=== PATIENT | female | born 1945 | race Caucasian/White ===

== ENCOUNTER 2018-01-31 01:11 | Outpatient (CLI) | payer OTHER, SELFPAY ==
--- NOTE | 2018-01-31 10:00 | MERGE_ITS ---
*[facility]* *[facility]* [address] [place] [address] Date of study: 01/31/2018 Transthoracic Echocardiography M-mode, complete 2D, complete spectral Doppler, and color Doppler *STUDY CONCLUSIONS* Summary: 1. Left ventricle: The cavity size was normal. Wall thickness was normal. Systolic function was normal. The estimated ejection fraction was 60-65%. Wall motion was normal; there were no regional wall motion abnormalities. Some parameters suggest diastolic dysfunction. 2. Left atrium: The atrium was mildly dilated. 3. Right ventricle: The cavity size was normal. Wall thickness was normal. Systolic function was normal. *PATIENT PRESENTATION* Height: 149.9cm ((59in) ) S/D Pressure: 125 / 71 Weight: 69.9kg ((153.7lb) ) BSA: 1.73m^2 Test start time: 10:18 AM. Test stop time: 11:00 AM. ORDERING Laura Ortiz REFERRING Laura Ortiz PERFORMING Unknown PERFORMING [facility] SIGNAL INTELLIGENCE/ELECTRONIC WARFARE RT Emre (Marisa)(CT), [place] *PROCEDURE DATA* Procedure information: The patient was identified by two identifiers. This study was interpreted by [facility]. Pertinent images and digital data are archived for permanent storage and are available for subsequent review. Comparison was made to the study of 01/19/2016. Study status: Routine. Transthoracic echocardiography. M-mode, complete 2D, complete spectral Doppler, and color Doppler. A Transthoracic Echocardiogram was performed. Scanning was performed from the parasternal, apical, subcostal, and suprasternal notch acoustic windows. Images were obtained using an [id number] cardiac ultrasound machine. Image quality was adequate. Study completion: The patient tolerated the procedure well. There were no complications. History: PMH: Orthopnea. *CARDIAC ANATOMY* Left ventricle: The cavity size was normal. Wall thickness was normal. Systolic function was normal. The estimated ejection fraction was 60-65%. Wall motion was normal; there were no regional wall motion abnormalities. Some parameters suggest diastolic dysfunction. Aortic valve: Trileaflet; normal thickness leaflets. Mobility was not restricted. Doppler: Transvalvular velocity was within the normal range. There was no stenosis. There was no significant regurgitation. VTI ratio of LVOT to aortic valve: 0.66. Valve area (VTI): 1.7cm^2. Indexed valve area (VTI): 1cm^2/m^2. Peak velocity ratio of LVOT to aortic valve: 0.67. Valve area (Vmax): 1.7cm^2. Indexed valve area (Vmax): 1cm^2/m^2. Mean velocity ratio of LVOT to aortic valve: 0.68. Valve area (Vmean): 1.7cm^2. Indexed valve area (Vmean): 1cm^2/m^2. Mean gradient (S): 5.3mm Hg. Peak gradient (S): 9.5mm Hg. Aorta: Aortic root: The aortic root was normal in size. Ascending aorta: The ascending aorta was normal in size. Mitral valve: Structurally normal valve. Mobility was not restricted. Doppler: Transvalvular velocity was within the normal range. There was no evidence for stenosis. There was trivial regurgitation. Valve area by pressure half-time: 4.9cm^2. Indexed valve area by pressure half-time: 2.8cm^2/m^2. Peak gradient (D): 2.8mm Hg. Left atrium: The atrium was mildly dilated. Right ventricle: The cavity size was normal. Wall thickness was normal. Systolic function was normal. Pulmonic valve: Structurally normal valve. Doppler: Transvalvular velocity was within the normal range. There was no evidence for stenosis. There was trivial regurgitation. Tricuspid valve: Structurally normal valve. Doppler: Transvalvular velocity was within the normal range. There was no evidence for stenosis. There was mild regurgitation. Pulmonary artery: Pulmonary systolic pressure was within the normal range, in the range of 30mm Hg to 35mm Hg. Right atrium: The atrium was normal in size. Pericardium: There was no pericardial effusion. Systemic veins: Inferior vena cava: Well visualized. The vessel was patent and normal in size. The respirophasic diameter changes were in the normal range (greater than or equal to 50%). Baseline ECG: Normal sinus rhythm. Measurements Left ventricle Value Reference LV ID, ED, PLAX 5.1 cm 3.5 - 6.0 LV ID, ES, PLAX 3.4 cm 2.1 - 4.0 LV PW thickness, ED, PLAX 0.8 cm LV end-diastolic volume, 1-p A2C 66 ml LV ejection fraction, 1-p A2C 59 % LV end-diastolic volume, 1-p A4C 68 ml LV ejection fraction, 1-p A4C 61 % LV e', lateral 0.109 m/sec LV E/e', lateral 8 LV e', medial 0.087 m/sec LV E/e', medial 10 LV e', average 0.098 m/sec LV E/e', average 9 Ventricular septum Value Reference IVS thickness, ED, PLAX 0.6 cm LVOT Value Reference LVOT ID, A-P 1.8 cm LVOT area 2.5 cm^2 LVOT peak velocity, S 1.03 m/sec LVOT mean velocity, S 0.75 m/sec LVOT VTI, S 25.2 cm LVOT peak gradient, S 4.2 mm Hg LVOT mean gradient, S 2.5 mm Hg Stroke volume (SV), LVOT DP 64 ml Stroke index (SV/bsa), LVOT DP 37 ml/m^2 Aortic valve Value Reference Aortic valve peak velocity, S 1.5 m/sec Aortic valve mean velocity, S 1.09 m/sec Aortic valve VTI, S 38.0 cm Aortic mean gradient, S 5.3 mm Hg Aortic peak gradient, S 9.5 mm Hg VTI ratio, LVOT/AV 0.66 Aortic valve area, VTI 1.7 cm^2 Velocity ratio, peak, LVOT/AV 0.67 Aortic valve area, peak velocity 1.7 cm^2 Velocity ratio, mean, LVOT/AV 0.68 Aortic valve area, mean velocity 1.7 cm^2 Aortic valve area/bsa, mean velocity 1 cm^2/m^2 Aorta Value Reference Aortic root ID, ED 2.7 cm Ascending aorta ID, A-P, S 2.9 cm Left atrium Value Reference LA ID, A-P, ES 3.5 cm LA ID/bsa, A-P 2.0 cm/m^2 <=2.2 LA area, ES, A4C 21 cm^2 8.8 - 23.4 LA area, ES, A2C 20 cm^2 LA volume, ES, 1-p A4C 41 ml LA volume/bsa, ES, 1-p A4C 24 ml/m^2 LA volume, ES, 2-p 59 ml LA volume/bsa, ES, 2-p 34 ml/m^2 LA/aortic root ratio 1.31 Mitral valve Value Reference Mitral E-wave peak velocity 0.84 m/sec Mitral A-wave peak velocity 0.82 m/sec Mitral deceleration time 156 ms 150 - 230 Mitral pressure half-time 45 ms Mitral peak gradient, D 2.8 mm Hg Mitral E/A ratio, peak 1.03 Mitral valve area, PHT, DP 4.9 cm^2 Pulmonary veins Value Reference Pulmonary vein peak velocity, S 0.77 m/sec Pulmonary vein peak velocity, D 0.51 m/sec Pulmonary vein velocity ratio, peak, 1.51 S/D Pulmonary vein A-wave reversal peak 0.33 m/sec velocity Tricuspid valve Value Reference Tricuspid regurg peak velocity 3 m/sec Tricuspid peak RV-RA gradient 36.8 mm Hg Right atrium Value Reference RA area, ES, A4C 11.6 cm^2 8.3 - 19.5 Legend: (L) and (H) katelyn values outside specified reference range. I have personally reviewed the images and have reviewed and edited the reported findings. Electronically signed by Ponce Multani 01/31/2018 12:43
== END 2018-01-31 01:31 ==
PROVIDERS: PCP Family Medicine; Visit Provider Family Medicine
DX: R06.01 Orthopnea (principal); I10 Essential (primary) hypertension
CPT/HCPCS: 93306

== ENCOUNTER 2018-01-31 12:43 | Outpatient (CLI) | payer MEDICARE, OTHER, SELFPAY | END 2018-01-31 13:03 | PROVIDERS: PCP Family Medicine; Referring Provider Family Medicine; Visit Provider Student in an Organized Health Care Education/Training Program | DX: R06.01 Orthopnea (principal); I10 Essential (primary) hypertension; I51.7 Cardiomegaly | CPT/HCPCS: 93306 ==

== ENCOUNTER 2018-02-08 08:14 | Outpatient (CLI) | payer MEDICARE, OTHER, SELFPAY ==
[2018-02-08 09:31] LABS: HCT 41.9 % (36.0-46.0); HGB 12.7 g/dL (12.0-15.5); Mean Corp. HGB Concentration 30.3 g/dL (32.0-36.0); Mean Corpuscular Hemoglobin 25.2 pg (27.0-33.0); Mean Corpuscular Volume 83.1 fL (80-95); Mean Platelet Volume 10.1 fL (8.0-11.0); Platelet Count 234 x1000/uL (130-400); RBC 5.04 m/cumm (4.00-5.20); RBC Distribution Width 16.9 % (11.7-14.6); White Blood Cell Count 6.68 k/cumm (4.4-10.8)
[2018-02-08 09:53] LABS: ALT 29 U/L (12-78); AST 24 U/L (15-37); Alkaline Phosphatase 78 U/L (46-116); Anion Gap 11.4 mmol/L (3-11); BUN 13 mg/dL (7-18); Bilirubin, Total 0.7 mg/dL (0.2-1.0); CO2 23.6 mmol/L (21.0-32.0); CREATININE 0.64 mg/dL (0.55-1.02); Calcium 9.1 mg/dL (8.5-10.1); Chloride 103 mmol/L (98-107); Glucose 86 mg/dL (70-100); NT-proBNP 108 pg/mL; Potassium 4.1 mmol/L (3.5-5.1); Sodium 138 mmol/L (136-145); Total Protein 7.3 g/dL (6.4-8.2)
== END 2018-02-08 08:34 ==
PROVIDERS: PCP Family Medicine; Visit Provider Family Medicine
DX: R06.00 Dyspnea, unspecified (principal)
CPT/HCPCS: 36415; 80053; 85027; 83880

== ENCOUNTER 2019-01-16 08:11 | Outpatient (REF) | payer MEDICARE, BC, SELFPAY ==
[2019-01-16 12:48] LABS: Anion Gap 13.8 mmol/L (3-11); BUN 10 mg/dL (7-18); CO2 21.2 mmol/L (21.0-32.0); CREATININE 0.94 mg/dL (0.55-1.02); Calcium 8.7 mg/dL (8.5-10.1); Chloride 105 mmol/L (98-107); Glucose 98 mg/dL (70-100); Potassium 4.1 mmol/L (3.5-5.1); Sodium 140 mmol/L (136-145)
[2019-01-16 12:53] LABS: Hemoglobin A1C 5.7 % (4.5-6.2)
== END 2019-01-16 08:31 ==
LOC: NCHCN 08:11
PROVIDERS: PCP Family Medicine; Visit Provider Family Medicine
DX: R73.01 Impaired fasting glucose (principal); I10 Essential (primary) hypertension; E55.9 Vitamin D deficiency, unspecified
CPT/HCPCS: 80048; 82306; 83036

== ENCOUNTER 2019-01-25 09:43 | Outpatient (REF) | payer MEDICARE, BC, SELFPAY ==
[2019-01-25 13:07] LABS: Folate 8.2 ng/mL (8.6-20.0); Vitamin B12 180 pg/mL (193-986)
== END 2019-01-25 10:03 ==
LOC: NCHCN 09:43
PROVIDERS: PCP Family Medicine; Visit Provider Family Medicine
DX: R06.01 Orthopnea (principal); F10.10 Alcohol abuse, uncomplicated
CPT/HCPCS: 82607; 82746

== ENCOUNTER 2019-03-12 13:01 | Outpatient (REF) | payer MEDICARE, BC, SELFPAY ==
[2019-03-12 14:14] LABS: Folate 10.1 ng/mL (8.6-20.0); Vitamin B12 468 pg/mL (193-986)
== END 2019-03-12 13:21 ==
LOC: LBN 13:01
PROVIDERS: PCP Family Medicine; Visit Provider Family Medicine
DX: E53.8 Deficiency of other specified B group vitamins (principal)
CPT/HCPCS: 82607; 82746

== ENCOUNTER 2019-09-23 20:17 | Outpatient (REF) | payer MEDICARE, BC, SELFPAY ==
[2019-09-23 19:47] LABS: Hemoglobin A1C 5.1 % (3.8-5.6)
[2019-09-23 20:10] LABS: Folate 10.8 ng/mL (8.6-20.0); Vitamin B12 695 pg/mL (193-986)
[2019-09-28 12:24] LABS: Methylmalonic Acid 0.15 nmol/mL (<=0.40)
== END 2019-09-23 20:37 ==
LOC: NCHCN 20:17
PROVIDERS: PCP Family Medicine; Visit Provider Family Medicine
DX: E53.8 Deficiency of other specified B group vitamins (principal); R73.03 Prediabetes
CPT/HCPCS: 80186; 82607; 82746; 83036

== ENCOUNTER 2020-03-15 18:34 | Inpatient (IN) | payer MEDICARE, BC, SELFPAY ==
[2020-03-15] VITALS (18 sets, daily range): BP systolic 111–166; BP diastolic 55–107; PULSE 95–143; RESP 13–24; TEMP 36.3–36.7; O2SAT 96–100
--- NOTE | 2020-03-15 19:00 | RT.EKG_ITS ---
APPROVED REPORT Exam: Resting ECG Patient Location: E HR:108 bpm ECG Measurements Heart Rate 108 AXIS [place] 125 P 47 QRSd 76 QRS -48 QT 321 T 56 QTc 430 Conclusion Sinus tachycardia...rate> 99 Left anterior fascicular block...axis(240,-40), init forces inf Probable lateral infarct, old...Q>35mS, abnormal ST-T, V5-6 I aVL I have reviewed and interpreted ECG and agree with software generated interpretation.
--- NOTE | 2020-03-15 19:11 | W.ED.GENAD ---
Discharge Plan Disposition Patient Disposition: [facility] INPATIENT Condition: Serious Discharge Details Clinical Impression: Upper gastrointestinal bleeding Admit Date/Time: 03/15/20 21:47 Admit Provider: Lauro Estrada Attending Provider: Lauro Estrada Primary Care Provider: Laura Ortiz ED Provider: Pamela Thompson Medical Decision Making patient presents with sudden onset of projectile vomiting of blood. no abd pain or nausea IV ordered, labs, abd flat and upright, IV NS bolus 1 liter, protonix 80 mg iVP and zofran 4 mg IVP given note there was delay in labs and IV d/t difficult stick with multiple lab and IV attempts. ultimately a 22 was established in her hand. rectal exam shows brown stool grossly positive for OB on hemacult case discussed with Dr Simmons who would consult for emergent endoscopy if bleeding continues or she becomes unstable. patient will be admitted to Dr Estrada to ICU Medical Records Medical records reviewed: Yes I reviewed the patient's medical records. Medical records narrative: Patient Name: ELISE MATHIS #: [id number]: ER Ordering Provider: : REG ER Primary Care Provider: Laura Ortiz M.D.Date of Exam: 03/15/20ex: F : 8Age: 74 Exam(s) PROCEDURE INFORMATION: Exam: XR Complete Acute Abdomen Series Exam date and time: 03/15/2020 6:58 PM Age: 74 years old Clinical indication: Patient HX: Vomiting blood; Additional info: HX of breast cancer TECHNIQUE: Imaging protocol: XR complete acute abdomen series, including 2 or more views of the abdomen and a single view chest. COMPARISON: No relevant prior studies available. FINDINGS: Lungs: No pulmonary parenchymal airspace opacities are identified. There is no pulmonary vascular congestion. Pleural space: No layering pleural effusions are identified. Heart/Mediastinum: The cardiomediastinal silhouette appears normal. Gastrointestinal tract: The bowel gas pattern is normal. There is a small amount of stools scattered throughout the colon. Findings suggest lobular wall thickening of the gastric body on one view which could reflect gastritis. Intraperitoneal space: There is no evidence for free intraperitoneal air. Bones/joints: There is mild levoscoliosis centered around the thoracolumbar junction with multilevel moderate lumbar spondylosis. There is a platelike calcification projecting at the right iliac wing, likely dystrophic. Soft tissues: Normal. IMPRESSION: 1. Normal bowel gas pattern. 2. Findings suggest possible wall thickening of the gastric body on one view which could reflect gastritis. Recommend clinical correlation. Dictated and Authenticated by: Paxton Durant MD. Ordering:GINI Santiago MD Lab Data Lab results reviewed: Yes I reviewed the patient's lab results. Lab results narrative: Laboratory Tests Range/Units 03/15/20 03/15/20 19:45 19:55 WBC (4.4-10.8) 10^3/uL 12.49 H RBC (3.93-5.22) 10^6/uL 4.35 Hgb (11.2-15.7) g/dL 12.5 Hct (36.0-46.0) % 38.2 MCV (80-95) fL 87.8 MCH (27.0-33.0) pg 28.7 MCHC (32.0-36.0) % 32.7 RDW (11.7-14.6) % 16.7 H Plt Count (130-400) 10^3/uL 218 MPV (8.0-11.0) fL 10.0 Immature Gran % 0.5 Neutrophils % 84.9 Lymphocytes % 7.4 Monocytes % 6.6 Eosinophils % 0.3 Basophils % 0.3 Nucleated RBC % % 0 Absolute Neutrophils (1.2-6.7) 10^3/uL 10.60 H Absolute Lymphocytes (1.2-3.4) 10^3/uL 0.92 L Absolute Monocytes (0.1-0.8) 10^3/uL 0.82 H Absolute Eosinophils (0.0-0.7) 10^3/uL 0.04 Absolute Basophils (0.0-0.2) 10^3/uL 0.04 Sodium (136-145) mmol/L 137 Potassium (3.5-5.1) mmol/L 3.7 Chloride (98-107) mmol/L 101 Carbon Dioxide (21.0-32.0) mmol/L 22.1 Anion Gap (3-11) mmol/L 13.9 H BUN (7-18) mg/dL 29 H Creatinine (0.55-1.02) mg/dL 0.81 Estimated GFR/1.73 m2 (mL/min/1.73m2) >= 60.00 Glucose (74-106) mg/dL 99 Calcium (8.5-10.1) mg/dL 9.1 Total Bilirubin (0.2-1.0) mg/dL 0.9 AST (15-37) U/L 26 ALT (14-59) U/L 25 Alkaline Phosphatase (46-116) U/L 80 Total Protein (6.4-8.2) g/dL 6.6 Albumin (3.4-5.0) g/dL 3.1 L HPI General Date/Time Provider Initiated Documentation: 03/15/20 18:34. Limitations to Documentation: no limitations. Information obtained by: patient. HPI Narrative: Patient presents to the emergency department after 1 episode of projectile vomiting of dark fluid described as coffee grounds and lan blood. She states she is not had any nausea preceding this event and she has no abdominal pain. She denies any change in her bowels no black or tarry stools no rectal bleeding. She denies any similar history. She has had no fevers cough shortness of breath. She reports that she has had some anorexia and weight loss and was following Dr. Woodall outpatient and was being referred for an upper endoscopy Related Data Home Medications Medication Instructions Recorded Confirmed aspirin [Low Dose Aspirin Ec] 81 mg PO DAILY tab-cap NS 11/08/16 03/15/20 atorvastatin 40 mg PO DAILY tab-cap NS 11/08/16 03/15/20 clopidogrel [Plavix] 75 mg PO DAILY tab-cap NS 11/08/16 03/15/20 letrozole [Femara] 2.5 mg PO DAILY tab-cap NS 11/08/16 03/15/20 potassium chloride [Klor-Con 10] 10 meq PO NS 11/08/16 bisacodyl [Dulcolax] 5 mg PO ONCE #4 tab 11/09/16 lisinopril 2.5 mg PO DAILY 03/15/20 03/15/20 Allergies Allergy/AdvReac Type Severity Reaction Status Date / Time Sulfa (Sulfonamide Allergy Unverified 03/15/20 18:48 Antibiotics) General Stated Complaint: GenMedical LILLY: 3 Review of Systems Constitutional Constitutional: Denies fever(s) and Reports poor appetite ENT Ears, Nose, Mouth, and Throat: Reports dysphagia, Denies vertigo, Denies dizziness and Denies odynophagia Cardiovascular Cardiovascular: Denies chest pain and Denies dyspnea Respiratory Respiratory: Denies cough and Denies dyspnea Gastrointestinal Gastrointestinal: Denies abdominal pain, Denies melena, Denies change in stool character, Denies cramping, Reports dysphagia, Reports early satiety, Reports dyspepsia, Denies nausea, Denies odynophagia, Reports vomiting and Reports hematemesis Integumentary/Breasts Skin/Breast: Denies rash Neurologic Neurologic: Denies vertigo and Denies dizziness [facility] Medical History (Updated 03/15/20 @ 23:57 by Pamela Thompson NP) GERD (gastroesophageal reflux disease) No history of formal endoscopic evaluation but empirically treated with AcipHex History of breast cancer (~2011) Treated with left breast lumpectomy and sentinel lymph node biopsies and subsequent radiation and chemotherapy; follow-up through [facility] History of stroke HTN (hypertension) Surgical History (Updated 03/15/20 @ 23:19 by Lauro Estrada) S/P breast lumpectomy (~2011) Status post laparotomy Performed for evaluation of possible ectopic but none found Family History Father No problems noted. Other Colon cancer Social History Smoking/Tobacco Use Status: Never Smoking risk assessment performed?: Yes Alcohol Intake: current Alcohol Intake frequency: 0-2 drinks per day Alcohol type: beer and wine Substance use type: does not use Do you feel safe at home: Yes Do you feel safe in your relationship?: Yes History History 0 Para Hx # Term Pregnancies Multiple births Hx # Pregnancies Ectopic pregnancies AB induced Hx Number of Living Children AB spontaneous Exam Const General: cooperative, healthy appearing, comfortable and no acute distress Nutritional Appearance: average body habitus Orientation: alert, awake and oriented x3 HENMT Head: normal to inspection, normocephalic and atraumatic Mouth: oral mucosae normal Chest Chest: normal inspection of the chest Resp Effort & Inspection: normal respiratory effort Auscultation: clear to auscultation bilaterally Cardio Rate: regular rate Rhythm: regular rhythm GI Inspection: normal to inspection Auscultation: normal bowel sounds Skin General skin exam: no rashes or lesions noted Neuro General: patient alert, patient awake, patient oriented x3 and no focal motor deficits Cranial Nerves: CN's II-XI intact bilaterally Extrem General: normal to inspection, full ROM and no pedal edema Course Vital Signs Vital signs: Vital Signs Temperature 36.3 C L 03/15/20 18:42 Pulse 143 H 03/15/20 18:42 Respiratory Rate 18 03/15/20 18:42 Blood Pressure 166/107 H 03/15/20 18:42 Pulse Oximetry 100 03/15/20 18:42 Temperature 36.3 C L 03/15/20 18:42 Pulse 143 H 03/15/20 18:42 Respiratory Rate 18 03/15/20 18:42 Blood Pressure 166/107 H 03/15/20 18:42 Blood Pressure Position Sitting 03/15/20 18:42 Pulse Oximetry 100 03/15/20 18:42 Oxygen Delivery Method Room Air 03/15/20 18:42 Oxygen Flow Rate 0 03/15/20 18:42 Pain Level 0 03/15/20 18:42
--- NOTE | 2020-03-15 19:37 | NUR.NOTE ---
Nursing Note: Unable to obtain iv access after 3 nurses have tried. Will have lab draw blood and get x-ray done. Provider aware. Dr. Kimball here at 1999 will ask to start IV with US.
[2020-03-15 19:58] LABS: Abs Immature Grans 0.06 10^3/uL (0.0-0.06); Absolute Basophil Count 0.04 10^3/uL (0.0-0.2); Absolute Eosinophil Count 0.04 10^3/uL (0.0-0.7); Absolute Lymphocyte Count 0.92 10^3/uL (1.2-3.4); Basophils % 0.3; Eosinophils % 0.3; HCT 38.2 % (36.0-46.0); HGB 12.5 g/dL (11.2-15.7); Immature Grans % 0.5; Lymphocytes % 7.4; MCH 28.7 pg (27.0-33.0); MCHC 32.7 % (32.0-36.0); MCV 87.8 fL (80-95); Monocytes % 6.6; Neutrophils % 84.9; Nucleated RBC 0 %; Platelet Count 218 10^3/uL (130-400); RBC 4.35 10^6/uL (3.93-5.22); RDW 16.7 % (11.7-14.6); RDW-SD 53.7 fL; WBC 12.49 10^3/uL (4.4-10.8)
[2020-03-15 20:12] LABS: Absolute Monocyte Count 0.82 10^3/uL (0.1-0.8)
--- NOTE | 2020-03-15 20:12 | DI.RAD_ITS ---
EXAM: 2D digital imaging was performed. CLINICAL HISTORY: gi bleed. COMPARISON: CR CHEST 2 VIEWS PA,LAT from 04/20/2009 TECHNIQUE: Supine and upright abdomen and PA chest views were performed. FINDINGS: BOWEL GAS PATTERN: Nondistended. Free air. There is a question of thickening of the wall of the gas tric body which may reflect gastritis. CALCIFICATIONS: No radiopaque calcifications. OSSEOUS STRUCTURES: Degenerative changes in the spine. Dystrophic calcification overlying the right iliac bone. OTHER FINDINGS: None. LUNGS Clear. No pleural abnormality seen. HEART: Normal. MEDIASTINUM: Normal. OTHER FINDINGS: None. IMPRESSION: 1. Nonobstructive bowel gas pattern. 2. Question of wall thickening of the gastric body which may reflect gastritis. Please correlate cli nically. 3. No free air. 4. No acute pulmonary process. DATA REPOSITORY: RADIATION DOSE DELIVERED:
--- NOTE | 2020-03-15 20:22 | DI.VRAD_ITS ---
PROCEDURE INFORMATION: Exam: XR Complete Acute Abdomen Series Exam date and time: 03/15/2020 6:58 PM Age: 74 years old Clinical indication: Patient HX: Vomiting blood; Additional info: HX of breast cancer TECHNIQUE: Imaging protocol: XR complete acute abdomen series, including 2 or more views of the abdomen and a single view chest. COMPARISON: No relevant prior studies available. FINDINGS: Lungs: No pulmonary parenchymal airspace opacities are identified. There is no pulmonary vascular congestion. Pleural space: No layering pleural effusions are identified. Heart/Mediastinum: The cardiomediastinal silhouette appears normal. Gastrointestinal tract: The bowel gas pattern is normal. There is a small amount of stools scattered throughout the colon. Findings suggest lobular wall thickening of the gastric body on one view which could reflect gastritis. Intraperitoneal space: There is no evidence for free intraperitoneal air. Bones/joints: There is mild levoscoliosis centered around the thoracolumbar junction with multilevel moderate lumbar spondylosis. There is a platelike calcification projecting at the right iliac wing, likely dystrophic. Soft tissues: Normal. IMPRESSION: 1. Normal bowel gas pattern. 2. Findings suggest possible wall thickening of the gastric body on one view which could reflect gastritis. Recommend clinical correlation. Dictated and Authenticated by: Paxton Durant MD. Ordering:GINI Santiago MD
[2020-03-15 20:25] LABS: ALT 25 U/L (14-59); AST 26 U/L (15-37); Albumin 3.1 g/dL (3.4-5.0); Alkaline Phosphatase 80 U/L (46-116); Anion Gap 13.9 mmol/L (3-11); BUN 29 mg/dL (7-18); Bilirubin, Total 0.9 mg/dL (0.2-1.0); CO2 22.1 mmol/L (21.0-32.0); CREATININE 0.81 mg/dL (0.55-1.02); Calcium 9.1 mg/dL (8.5-10.1); Chloride 101 mmol/L (98-107); Glucose 99 mg/dL (74-106); Potassium 3.7 mmol/L (3.5-5.1); Sodium 137 mmol/L (136-145); Total Protein 6.6 g/dL (6.4-8.2)
[2020-03-15] MEDS: Normal Saline 1,000 ML 250 ML IV (20:25)
[2020-03-15] MEDS: Ondansetron 4 MG/2 ML VIAL IVP (20:26)
[2020-03-15] MEDS: Pantoprazole 40 MG VIAL IVP ×2 (20:29→21:01)
[2020-03-15 21:20] LABS: Source Nasopharynx
[2020-03-15 21:38] LABS: INR 1.1 (0.9-1.1); PTT Activated 22.2 sec (21.0-27.5); Prothrombin Time 11.2 sec (9.3-11.0)
[2020-03-15 22:09] LABS: COVID-19 PCR Negative (Negative); Influenza A PCR Negative (Negative); Influenza B PCR Negative (Negative); RSV PCR Negative (Negative)
--- NOTE | 2020-03-15 22:23 | W.PM.HP.N ---
Date of service: 03/15/20 Time of Service: 22:24 Assessment and Plan Assessment and plan (1) Upper gastrointestinal bleeding: Status: Acute Assessment and plan: Keep n.p.o., begin Protonix drip, monitor serial hemograms, consult with surgical service for an EGD to evaluate source of bleeding. Patient is already been typed and screened. Present time she is not requiring transfusion. Will continue IV fluid hydration while she is n.p.o. Differential diagnosis include peptic ulcer disease, esophagitis, malignancy, AVM. (2) Dysphagia: Status: Acute Assessment and plan: Her 2-1/2 to 3-month history of weight loss of 12 to 15 pounds combined with decreased appetite and gagging sensation whenever she tries to eat any solids as well as a feeling like food is getting stuck in her throat is concerning for possible occult GI malignancy. She also could have esophageal stricture from chronic GERD. She is never had a formal work-up such as an EGD to diagnose her GERD. She said she never really got a great appetite since the treatment for her breast cancer and has had dysgeusia ever since her chemotherapy treatment. However the weight loss and the gagging sensation w/ certain foods and the feeling like something is sticking are all new over the past 2 to 3 months. This requires EGD for evaluation particularly now she had hematemesis. Qualifiers: Dysphagia type: unspecified Qualified Code(s): R13.10 - Dysphagia, unspecified (3) Weight loss, non-intentional: Status: Acute Assessment and plan: Work-up as above. If no obvious cause based on her EGD she will need a formal work-up for occult malignancy. History of Present Illness History of Present Illness Chief Complaint: Hematemesis Narrative: 74-year-old female with history of breast cancer status post left breast lumpectomy and subsequent radiation and chemotherapy approximately 8 years ago currently in remission, essential hypertension, GERD controlled with AcipHex, remote history of CVA approximately 20 years ago treated with atorvastatin and dual antiplatelet therapy with aspirin 81 mg daily along with Plavix 75 mg daily has been complaining of 12 to 15 pound weight loss over the past 2 and half to 3 months. She has had loss of appetite along with dysphagia to meats. She came into the emergency department this evening because of sudden onset of coffee-ground emesis along with some bright red blood. She denies a recent change in her stools such as melena or hematochezia and denies any abdominal pain. Other than her dual antiplatelet therapy that she has been on for the past 20 years since her stroke which is not left her with any residual deficits she does not use any other NSAIDs. She does drink a couple of beers or glasses of wine each evening with dinner and does not smoke. Upon evaluation emergency department she was hypertensive at 166/100 7 mm and she was tachycardic with a heart rate in the 140s sinus tachycardia. Initial hemoglobin and hematocrit were 12.5 g and 38.2% and her BUN was elevated at 29 with a normal creatinine of 0.8. A liter of IV saline was ordered and is still running in at a rate of 250 mL an hour due to a small bore IV in her left hand 22-gauge. She has been typed and screened but not crossmatched. She has had no further hematemesis since admission. Rectal exam according to aPmela Thompson, MANAGER LABORAT[employer], did not reveal melanotic stools but was grossly positive on the Hemoccult card. Because of the hematemesis and Hemoccult positive stool and tachycardia patient is being admitted to the intensive care unit overnight for close monitoring. Dr. Leatha Simmons, general surgeon, was consulted by the emergency room but deferred admission to the hospitalist service. We will be consulting with her for an EGD. Patient's been kept n.p.o. and serial hemograms will be monitored overnight. She was given a bolus of Protonix 80 mg IV while in the emergency department and will be placed on a continuous Protonix drip. Review of Systems Constitutional Constitutional: Reports as per HPI Gastrointestinal Gastrointestinal: Reports as per HPI [facility] Medical History (Updated 03/15/20 @ 23:23 by Lauro Estrada) GERD (gastroesophageal reflux disease) No history of formal endoscopic evaluation but empirically treated with AcipHex History of breast cancer (~2011) Treated with left breast lumpectomy and sentinel lymph node biopsies and subsequent radiation and chemotherapy; follow-up through [facility] History of stroke HTN (hypertension) Surgical History (Updated 03/15/20 @ 23:19 by Lauro Estrada) S/P breast lumpectomy (~2011) Status post laparotomy Performed for evaluation of possible ectopic but none found Family History Father No problems noted. Other Colon cancer Social History Smoking/Tobacco Use Status: Never Smoking risk assessment performed?: Yes Alcohol Intake: current Alcohol Intake frequency: 0-2 drinks per day Alcohol type: beer and wine Substance use type: does not use Do you feel safe at home: Yes Do you feel safe in your relationship?: Yes History History 0 Para Hx # Term Pregnancies Multiple births Hx # Pregnancies Ectopic pregnancies AB induced Hx Number of Living Children AB spontaneous Meds Home Medications and Allergies Home Medications Medication Instructions Recorded Confirmed Type aspirin [Low Dose Aspirin Ec] 81 mg PO DAILY tab-cap NS 11/08/16 03/15/20 History atorvastatin 40 mg PO DAILY tab-cap NS 11/08/16 03/15/20 History clopidogrel [Plavix] 75 mg PO DAILY tab-cap NS 11/08/16 03/15/20 History letrozole [Femara] 2.5 mg PO DAILY tab-cap NS 11/08/16 03/15/20 History potassium chloride [Klor-Con 10] 10 meq PO NS 11/08/16 History bisacodyl [Dulcolax] 5 mg PO ONCE #4 tab 11/09/16 History lisinopril 2.5 mg PO DAILY 03/15/20 03/15/20 History Allergies Allergy/AdvReac Type Severity Reaction Status Date / Time Sulfa (Sulfonamide Allergy Unverified 03/15/20 18:48 Antibiotics) Exam Narrative Exam Narrative: Elderly female who is alert and oriented person place time circumstance in no acute distress. HEENT is unremarkable. No scleral icterus. No jaundice. No conjunctival injection. Full extraocular motion intact. Oropharynx no exudate. Moist mucous membranes. No facial asymmetry normal movement of her tongue and palate and facial mimetic muscles. Neck is supple no JVD normal carotid pulses no bruits Lungs are clear to auscultation. Heart regular but slightly tachycardic without murmur rub or gallop. Breasts are nontender no palpable nodules. No axillary adenopathy. Abdomen soft nondistended normal active bowel sounds no organomegaly no palpable masses no bruits no tenderness. Rectal exam deferred as it was performed by the nurse practitioner in the emergency department. Lower extremities with multiple bruises over her patellae and pretibial surfaces which she says she got from her [place] dog. She also has a bruise over the dorsum of her right foot secondary to dropping a piece of firewood. Feet are cool but with normal capillary refill. Normal pedal pulses Results Labs Result diagrams: 03/15/20 22:18 03/15/20 19:45 Labs: Laboratory Results - last 24 hr 03/15/20 03/15/20 03/15/20 19:45 19:55 21:11 WBC 12.49 H RBC 4.35 Hgb 12.5 Hct 38.2 MCV 87.8 MCH 28.7 MCHC 32.7 RDW 16.7 H Plt Count 218 MPV 10.0 Immature Gran % 0.5 Neutrophils % 84.9 Lymphocytes % 7.4 Monocytes % 6.6 Eosinophils % 0.3 Basophils % 0.3 Nucleated RBC % 0 Absolute Neutrophils 10.60 H Absolute Lymphocytes 0.92 L Absolute Monocytes 0.82 H Absolute Eosinophils 0.04 Absolute Basophils 0.04 PT 11.2 H INR 1.1 APTT 22.2 Sodium 137 Potassium 3.7 Chloride 101 Carbon Dioxide 22.1 Anion Gap 13.9 H BUN 29 H Creatinine 0.81 Estimated GFR/1.73 m2 >= 60.00 Glucose 99 Calcium 9.1 Total Bilirubin 0.9 AST 26 ALT 25 Alkaline Phosphatase 80 Total Protein 6.6 Albumin 3.1 L COVID-19 Source SARS-CoV-2 (PCR) Influenza Type A (PCR) Influenza Type B (PCR) RSV (PCR) 03/15/20 21:15 WBC RBC Hgb Hct MCV MCH MCHC RDW Plt Count MPV Immature Gran % Neutrophils % Lymphocytes % Monocytes % Eosinophils % Basophils % Nucleated RBC % Absolute Neutrophils Absolute Lymphocytes Absolute Monocytes Absolute Eosinophils Absolute Basophils PT INR APTT Sodium Potassium Chloride Carbon Dioxide Anion Gap BUN Creatinine Estimated GFR/1.73 m2 Glucose Calcium Total Bilirubin AST ALT Alkaline Phosphatase Total Protein Albumin COVID-19 Source Nasopharynx SARS-CoV-2 (PCR) Negative Influenza Type A (PCR) Negative Influenza Type B (PCR) Negative RSV (PCR) Negative Last Vital Signs Temp 36.3 C L 03/15/20 18:42 Pulse 107 H 03/15/20 21:20 Resp 16 03/15/20 21:20 BP 130/61 03/15/20 21:20 Pulse Ox 98 12/20/20 21:20 COVID-19 Screening Have you, or household traveled for leisure in last 14 days?: No Had IN PERSON contact w/suspected or confirmed C-19 person: No
[2020-03-15 22:25] LABS: HCT 34.2 % (36.0-46.0); HGB 11.2 g/dL (11.2-15.7)
[2020-03-15] MEDS: PANTOPRAZOLE 80 MG in Normal Saline 100 ML 10 MG IV (22:53)
[2020-03-16] VITALS (57 sets, daily range): BP systolic 80–155; BP diastolic 57–106; PULSE 66–105; RESP 13–28; TEMP 35.9–36.7; O2SAT 93–100
[2020-03-16 00:58] LABS: HCT 29.7 % (36.0-46.0); HGB 9.8 g/dL (11.2-15.7)
[2020-03-16] MEDS: Normal Saline 1,000 ML 100 ML IV (01:15)
--- NOTE | 2020-03-16 06:35 | W.SURGCON ---
Date of service: 03/16/20 Time of Service: 06:35 Assessment and Plan Assessment and plan (1) Weight loss, non-intentional: Status: Acute (2) Dysphagia: Status: Acute Qualifiers: Dysphagia type: unspecified Qualified Code(s): R13.10 - Dysphagia, unspecified (3) Upper gastrointestinal bleeding: Status: Acute Assessment and plan: Mrs. Galindo is a 74 year old female who has been having dysphagia for the last few months. No abdominal pain. She has never had an EGD done. She has a remote history of radiation to her left chest. She has been on aciphex for GERD. Discussed EGD with the patient. Risks, benefits and complications have been reviewed. Complications include but are not limited to bleeding, pain, perforation, sore throat, aspiration, and adverse reaction to the medications. Questions were entertained and answered to their satisfaction and they wished to proceed. No guarantees were given or implied. I will place her on my schedule or possible ask Dr. Borges to do the case. Patient agreeable to either one of us doing the case. History of Present Illness History of Present Illness Chief Complaint: hematemesis Narrative: 74-year-old female with history of breast cancer status post left breast lumpectomy and subsequent radiation and chemotherapy approximately 8 years ago currently in remission, essential hypertension, GERD controlled with AcipHex, remote history of CVA approximately 20 years ago treated with atorvastatin and dual antiplatelet therapy with aspirin 81 mg daily along with Plavix 75 mg daily has been complaining of 12 to 15 pound weight loss over the past 2 and half to 3 months. She has had loss of appetite along with dysphagia to meats. She came into the emergency department yesterday evening because of sudden onset of coffee-ground emesis along with some bright red blood. She denies a recent change in her stools such as melena or hematochezia and denies any abdominal pain. Other than her dual antiplatelet therapy that she has been on for the past 20 years since her stroke which is not left her with any residual deficits she does not use any other NSAIDs. She does drink a couple of beers or glasses of wine each evening with dinner and does not smoke. She has had no further hematemesis since admission. Rectal exam according to Pamela Thompson, ANA M, did not reveal melanotic stools but was grossly positive on the Hemoccult card. Patient feels well this morning. No further emesis. She has no abdominal pain. She had a rapid covid test done last night which was negative. She has had 2 previous tests all have been negative. PCR test is pending Consults Consult date: 03/16/20 Requesting physician: Lauro Estrada Review of Systems Constitutional Constitutional: Reports fatigue, Denies fever(s) and Denies headache(s) Eyes Eyes: Denies change in vision ENT Ears, Nose, Mouth, and Throat: Denies change in voice, Denies headache(s) and Denies hoarseness Cardiovascular Cardiovascular: Denies chest pain, Denies irregular heart rhythm, Denies palpitations and Denies dyspnea Respiratory Respiratory: Denies cough and Denies dyspnea Gastrointestinal Gastrointestinal: Reports as per HPI Genitourinary Genitourinary: Reports system reviewed and no additional complaints, except as documented Musculoskeletal Musculoskeletal: Reports system reviewed and no additional complaints, except as documented Integumentary/Breasts Skin/Breast: Reports system reviewed and no additional complaints, except as documented Neurologic Neurologic: Reports system reviewed and no additional complaints, except as documented and Denies headache(s) Psychiatric Psychiatric: Reports system reviewed and no additional complaints, except as documented Endocrine Endocrine: Reports system reviewed and no additional complaints, except as documented, Reports fatigue and Denies palpitations [facility] Medical History GERD (gastroesophageal reflux disease) No history of formal endoscopic evaluation but empirically treated with AcipHex History of breast cancer (~2011) Treated with left breast lumpectomy and sentinel lymph node biopsies and subsequent radiation and chemotherapy; follow[facility]up through [facility] History of stroke HTN (hypertension) Surgical History S/P breast lumpectomy (~2011) Status post laparotomy Performed for evaluation of possible ectopic but none found Family History Father No problems noted. Other Colon cancer Social History Smoking/Tobacco Use Status: Never Smoking risk assessment performed?: Yes Alcohol Intake: current Alcohol Intake frequency: 0-2 drinks per day Alcohol type: beer and wine Substance use type: does not use Do you feel safe at home: Yes Do you feel safe in your relationship?: Yes History History 0 Para Hx # Term Pregnancies Multiple births Hx # Pregnancies Ectopic pregnancies AB induced Hx Number of Living Children AB spontaneous Exam Const General: cooperative, comfortable and no acute distress Orientation: alert and oriented x3 HENMT Head: normocephalic and atraumatic Resp Effort & Inspection: normal respiratory effort Auscultation: clear to auscultation bilaterally Cardio Rate: regular rate Rhythm: regular rhythm GI Inspection: normal to inspection Palpation: soft, no hepatosplenomegaly and nontender Auscultation: normal bowel sounds Results Last Vital Signs Temp 97.7 F 03/16/20 03:27 Pulse 76 03/16/20 03:27 Resp 18 03/16/20 03:27 BP 129/63 03/15/20 23:00 Pulse Ox 96 03/16/20 03:27 Labs Result diagrams: 03/16/20 00:53 03/15/20 19:45 Labs: Laboratory Results - last 24 hr 03/15/20 03/15/20 03/15/20 19:45 19:55 21:11 WBC 12.49 H RBC 4.35 Hgb 12.5 Hct 38.2 MCV 87.8 MCH 28.7 MCHC 32.7 RDW 16.7 H Plt Count 218 MPV 10.0 Immature Gran % 0.5 Neutrophils % 84.9 Lymphocytes % 7.4 Monocytes % 6.6 Eosinophils % 0.3 Basophils % 0.3 Nucleated RBC % 0 Absolute Neutrophils 10.60 H Absolute Lymphocytes 0.92 L Absolute Monocytes 0.82 H Absolute Eosinophils 0.04 Absolute Basophils 0.04 PT 11.2 H INR 1.1 APTT 22.2 Sodium 137 Potassium 3.7 Chloride 101 Carbon Dioxide 22.1 Anion Gap 13.9 H BUN 29 H Creatinine 0.81 Estimated GFR/1.73 m2 >= 60.00 Glucose 99 Calcium 9.1 Total Bilirubin 0.9 AST 26 ALT 25 Alkaline Phosphatase 80 Total Protein 6.6 Albumin 3.1 L COVID-19 Source SARS-CoV-2 (PCR) Influenza Type A (PCR) Influenza Type B (PCR) RSV (PCR) Patient ABO/Rh Antibody Screen 03/15/20 03/15/20 03/15/20 21:11 21:15 22:18 WBC RBC Hgb 11.2 Hct 34.2 L MCV MCH MCHC RDW Plt Count MPV Immature Gran % Neutrophils % Lymphocytes % Monocytes % Eosinophils % Basophils % Nucleated RBC % Absolute Neutrophils Absolute Lymphocytes Absolute Monocytes Absolute Eosinophils Absolute Basophils PT INR APTT Sodium Potassium Chloride Carbon Dioxide Anion Gap BUN Creatinine Estimated GFR/1.73 m2 Glucose Calcium Total Bilirubin AST ALT Alkaline Phosphatase Total Protein Albumin COVID-19 Source Nasopharynx SARS-CoV-2 (PCR) Negative Influenza Type A (PCR) Negative Influenza Type B (PCR) Negative RSV (PCR) Negative Patient ABO/Rh O Positive Antibody Screen Negative 03/16/20 00:53 WBC RBC Hgb 9.8 L Hct 29.7 L MCV MCH MCHC RDW Plt Count MPV Immature Gran % Neutrophils % Lymphocytes % Monocytes % Eosinophils % Basophils % Nucleated RBC % Absolute Neutrophils Absolute Lymphocytes Absolute Monocytes Absolute Eosinophils Absolute Basophils PT INR APTT Sodium Potassium Chloride Carbon Dioxide Anion Gap BUN Creatinine Estimated GFR/1.73 m2 Glucose Calcium Total Bilirubin AST ALT Alkaline Phosphatase Total Protein Albumin COVID-19 Source SARS-CoV-2 (PCR) Influenza Type A (PCR) Influenza Type B (PCR) RSV (PCR) Patient ABO/Rh Antibody Screen
[2020-03-16 07:22] LABS: Abs Immature Grans 0.02 10^3/uL (0.0-0.06); Absolute Basophil Count 0.04 10^3/uL (0.0-0.2); Absolute Eosinophil Count 0.02 10^3/uL (0.0-0.7); Absolute Monocyte Count 0.71 10^3/uL (0.1-0.8); Basophils % 0.6; Eosinophils % 0.3; HCT 29.6 % (36.0-46.0); HGB 9.7 g/dL (11.2-15.7); Immature Grans % 0.3; Lymphocytes % 23.1; MCH 28.4 pg (27.0-33.0); MCHC 32.8 % (32.0-36.0); MCV 86.8 fL (80-95); MPV 10.5 fL (8.0-11.0); Monocytes % 10.9; Neutrophils % 64.8; Nucleated RBC 0 %; Platelet Count 198 10^3/uL (130-400); RBC 3.41 10^6/uL (3.93-5.22); RDW 16.9 % (11.7-14.6); RDW-SD 53.4 fL; WBC 6.49 10^3/uL (4.4-10.8)
[2020-03-16 07:27] LABS: Anion Gap 9.3 mmol/L (3-11); BUN 22 mg/dL (7-18); CO2 23.7 mmol/L (21.0-32.0); Chloride 107 mmol/L (98-107); Glucose 76 mg/dL (74-106); Sodium 140 mmol/L (136-145)
[2020-03-16 07:36] LABS: Absolute Neutrophil Count 4.21 10^3/uL (1.2-6.7)
[2020-03-16 07:45] LABS: Calcium 7.8 mg/dL (8.5-10.1)
[2020-03-16] MEDS: PANTOPRAZOLE 80 MG in Normal Saline 100 ML 10 MG IV ×2 (07:49→21:45)
--- NOTE | 2020-03-16 08:19 | PGE_ITS ---
Date of Service Date of service: 03/16/20 Time of Service: 11:45 Assessment and Plan Assessment and plan (1) Upper gastrointestinal bleeding: Status: Acute Assessment and plan: For EGD today. Continue protonix gtt. Can likely be downgraded down from ICU, but will see how she does after anesthesia/procedure. (2) Dysphagia: Status: Acute Assessment and plan: Concern for esophageal stricture. For EGD. Qualifiers: Dysphagia type: unspecified Qualified Code(s): R13.10 - Dysphagia, unspecified (3) Weight loss, non-intentional: Status: Acute Assessment and plan: Given h/o breast cancer and esophageal symptoms, this is concerning for either new or recurrent malignancy. Will need outpatient workup after the EGD today. (4) H/O: CVA (cerebrovascular accident): Status: Acute Assessment and plan: The patient is confident that this is the only indication for her to have been on MAGDALENE. The latest recommendations are to de- escalate therapy after 30 days of MAGDALENE. We will see what her EGD shows and if it safe to resume either of the agents at this time prior to making a decision. (5) DVT prophylaxis: Status: Acute Assessment and plan: TEDS/SCDS (6) Discharge planning issues: Status: Acute Assessment and plan: Likely transfer out of ICU post procedure FUll code Subjective Subjective Interval history since last seen: Feels great. Denies dizziness, chest pain, shortness of breath, nausea, abdominal pain. Stable. NPO for EGD which will happen shortly. Last stool in the ED, and no hematemesis. Passing flatus. No nausea. Exam Narrative Exam Narrative: General: Very pleasant elderly female who does not appear ill HEENT: EOMI, MMM Heart: RRR, no m/r/g Lungs: CTAB Abdomen: soft, nontender, nondistended Extremities: no e/c/c BLE's Objective Last Vital Signs Temp 36.5 C 03/16/20 03:27 Pulse 78 03/16/20 06:35 Resp 25 H 03/16/20 06:40 BP 138/64 03/16/20 06:35 Pulse Ox 96 03/16/20 03:27 Laboratory Results - last 24 hr 03/15/20 03/15/20 03/15/20 19:45 19:55 21:11 WBC 12.49 H RBC 4.35 Hgb 12.5 Hct 38.2 MCV 87.8 MCH 28.7 MCHC 32.7 RDW 16.7 H Plt Count 218 MPV 10.0 Immature Gran % 0.5 Neutrophils % 84.9 Lymphocytes % 7.4 Monocytes % 6.6 Eosinophils % 0.3 Basophils % 0.3 Nucleated RBC % 0 Absolute Neutrophils 10.60 H Absolute Lymphocytes 0.92 L Absolute Monocytes 0.82 H Absolute Eosinophils 0.04 Absolute Basophils 0.04 PT 11.2 H INR 1.1 APTT 22.2 Sodium 137 Potassium 3.7 Chloride 101 Carbon Dioxide 22.1 Anion Gap 13.9 H BUN 29 H Creatinine 0.81 Estimated GFR/1.73 m2 >= 60.00 Glucose 99 Calcium 9.1 Total Bilirubin 0.9 AST 26 ALT 25 Alkaline Phosphatase 80 Total Protein 6.6 Albumin 3.1 L COVID-19 Source SARS-CoV-2 (PCR) Influenza Type A (PCR) Influenza Type B (PCR) RSV (PCR) Patient ABO/Rh Antibody Screen 03/15/20 03/15/20 03/15/20 21:11 21:15 22:18 WBC RBC Hgb 11.2 Hct 34.2 L MCV MCH MCHC RDW Plt Count MPV Immature Gran % Neutrophils % Lymphocytes % Monocytes % Eosinophils % Basophils % Nucleated RBC % Absolute Neutrophils Absolute Lymphocytes Absolute Monocytes Absolute Eosinophils Absolute Basophils PT INR APTT Sodium Potassium Chloride Carbon Dioxide Anion Gap BUN Creatinine Estimated GFR/1.73 m2 Glucose Calcium Total Bilirubin AST ALT Alkaline Phosphatase Total Protein Albumin COVID-19 Source Nasopharynx SARS-CoV-2 (PCR) Negative Influenza Type A (PCR) Negative Influenza Type B (PCR) Negative RSV (PCR) Negative Patient ABO/Rh O Positive Antibody Screen Negative 03/16/20 03/16/20 03/16/20 00:53 06:25 06:25 WBC 6.49 D RBC 3.41 L Hgb 9.8 L 9.7 L Hct 29.7 L 29.6 L MCV 86.8 MCH 28.4 MCHC 32.8 RDW 16.9 H Plt Count 198 MPV 10.5 Immature Gran % 0.3 Neutrophils % 64.8 Lymphocytes % 23.1 Monocytes % 10.9 Eosinophils % 0.3 Basophils % 0.6 Nucleated RBC % 0 Absolute Neutrophils 4.21 Absolute Lymphocytes 1.50 Absolute Monocytes 0.71 Absolute Eosinophils 0.02 Absolute Basophils 0.04 PT INR APTT Sodium 140 Potassium 3.0 L Chloride 107 Carbon Dioxide 23.7 Anion Gap 9.3 BUN 22 H D Creatinine 0.80 Estimated GFR/1.73 m2 >= 60.00 Glucose 76 Calcium 7.8 L Total Bilirubin AST ALT Alkaline Phosphatase Total Protein Albumin COVID-19 Source SARS-CoV-2 (PCR) Influenza Type A (PCR) Influenza Type B (PCR) RSV (PCR) Patient ABO/Rh Antibody Screen
[2020-03-16] MEDS: POTASSIUM CHLORIDE/D5-0.9%NACL 1,000 ML 100 MEQ IV (09:08)
[2020-03-16] MEDS: POTASSIUM CHLORIDE 20 MEQ/100 ML BAG 50 MEQ IVPB ×2 (09:40→18:15)
--- NOTE | 2020-03-16 12:06 | PDOC.CMIN ---
- If Service Date Differs Date of service: 03/16/20 Time of Service: 12:06 Care Management Initial Assess REASON FOR HOSPITALIZATION:: GI Bleed PAST MEDICAL HISTORY/PAST SURGICAL HISTORY:: Medical History. GERD (gastroesophageal reflux disease). No history of formal endoscopic evaluation but empirically treated with AcipHex. History of breast cancer (~2011). Treated with left breast lumpectomy and sentinel lymph node biopsies and subsequent radiation and chemotherapy; follow-up through [facility]. History of stroke. HTN (hypertension). Surgical History. S/P breast lumpectomy (~2011). Status post laparotomy. Performed for evaluation of possible ectopic but none found PREVIOUS FUNCTIONAL STATUS/SOCIAL/FAMILY SUPPORTS:: Desirae lives in [place] with her , Ortega. She worked for 18 years at [employer], which she reports was very fulfilling prior to half-way. 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 She reported that she was diagnosed with Cancer about 10 years ago, and she lost her hair and appetite during treatment, which she never got back. Despite this, she remains independent at baseline. CURRENT FUNCTIONAL STATUS:: Desirae was meeting with anesthesia when CM attempted to visit. On CM's second attempt, Desirae was being brought down to the OR for her EGD. Per MD, she may be downgraded from ICU to M/S today, depending on the results of her procedure today. She reported that she doesn't even feel sick currently, and is hoping to be home independently as soon as possible. CM will continue to follow. ADVANCE DIRECTIVES:: None on file at [facility], CM will offer forms. Has patient been provided with info about the portal/API?: No Did the patient sign up for the portal?: No CODE STATUS:: Full Code INSURANCE COVERAGE / FINANCIAL ISSUES:: MCR/ BCBS CURRENT HOME/COMMUNITY SERVICES/EQUIPMENT:: No services or equipment in the home. PRIMARY CARE PHYSICIAN:: Laura Ortiz POTENTIAL DISCHARGE NEEDS:: Evaluations for further needs, follow up appointments PATIENT/FAMILY EDUCATION NEEDS:: Review discharge instructions regarding activity levels and medications, discussion of self care needs and goals of care. ANTICIPATED BARRIERS TO DISCHARGE:: None identified at this time. TRANSPORTATION:: Via private vehicle by family. PLAN:: Anticipate Desirae will return home once medically cleared. She will follow up with her PCP and discharge plan of care. Her will drive her home when ready. CM will continue to follow.
--- NOTE | 2020-03-16 12:11 | PHA.REVIEW ---
Pharmacy Admission Review - Admission Clinical Review (Last Reviewed 03/16/20 @ 06:39 by Rosy Simmons MD) Discharge planning issues (Acute) DVT prophylaxis (Acute) H/O: CVA (cerebrovascular accident) (Acute) Weight loss, non-intentional (Acute) Dysphagia (Acute) Upper gastrointestinal bleeding (Acute) Sulfa (Sulfonamide Antibiotics) Allergy (Unverified 03/15/20 18:48) Height 4 ft 11 in Weight 61.3 kg - Renal Dosing Renal Dosing: BUN 22 mg/dL (7-18) H D 03/16/20 06:25 Creatinine 0.80 mg/dL (0.55-1.02) 03/16/20 06:25 Medications needing adjustments: Reviewed (Crcl ~45.6 mL/min current meds okay) - Anticoagulation Anticoagulation: Hgb 9.7 g/dL (11.2-15.7) L 03/16/20 06:25 Hct 29.6 % (36.0-46.0) L 03/16/20 06:25 Plt Count 198 10^3/uL (130-400) 03/16/20 06:25 INR 1.1 (0.9-1.1) 03/15/20 21:11 Creatinine 0.80 mg/dL (0.55-1.02) 03/16/20 06:25 DVT Prohphylaxis: N/A (GI bleed, has TEDS and SCDs ordered) - Opiate Usage Evaluate Pain Scale/Pains Meds: N/A - Relevant Labs Sodium 140 mmol/L (136-145) 03/16/20 06:25 Potassium 3.0 mmol/L (3.5-5.1) L 03/16/20 06:25 Chloride 107 mmol/L (98-107) 03/16/20 06:25 Electrolytes, C-Reactive P, ESR: Reviewed (IV K+ replacement ordered) - DM Control DM Control: Glucose 76 mg/dL (74-106) 03/16/20 06:25 Insulin Dosing: N/A - Heart Failure/ND EF%, ROSELINE's, B-Blockers, Diuretics: N/A - BP Control BP Control: Blood Pressure [Standing] 128/81 Blood Pressure [Sitting] 136/65 Blood Pressure [Supine] 139/59 Blood Pressure 128/81 Blood Pressure 136/65 Blood Pressure 139/59 If elevated: N/A - Qtc Review If Elevated: N/A (QTc 430 on admission) - IV to PO Switch IV Medications: Reviewed - Home Meds Home Med List reviewed: Reviewed (aspirin (GI bleed), bisacodyl (PRN), clopidogrel (GI bleed), rabeprazole (not on home med list but surgical consult mentions pt taking this), potassium (GI bleed, watch for liquid form vs. solid if pt resumes taking PO potassium)) - Current meds Current Medication Order Review: Reviewed - Comments Comments/Follow Ups: Watch VS, H/H, K+, labs and for med changes (IV to PO, home meds)
--- NOTE | 2020-03-16 12:20 | STOM_PTH ---
PATIENT: Desirae Galindo LOC: ICU U#:[id number] AGE/SX: 74/F ROOM: ICU.222 RE03/17/[address]: Citlalli Weir : 1945 BED: A DIS: 03/18/2020 SPEC #: [id number] RECD: 03/16/20 16:15 STATUS: B[place] REQ #: [id number] HARISH: 03/16/20 12:[address]: Lauro Estrada DEPT: Surgical Specimen RECD BY: Bettye Ellis ENTERED: 03/16/20 16:16 SP TYPE: STOMACH OTHR DR: MD Diana Rees Dana Tissues: 1 - STOMACH BIOPSY Procedures: GROSS AND MICRO LEVEL 4 Comments: [id number]
--- NOTE | 2020-03-16 13:19 | W.PM.ENDDOP ---
Date of service: 03/16/20 Time of Service: 13:19 Endoscopy Report DATE OF PROCEDURE: 03/16/20 PRE-OP DIAGNOSIS: GI bleed POST-OP DIAGNOSIS: other PROCEDURE: EGD and bx polyp SURGEON: Jackie Borges ANESTHESIA: GETA ESTIMATED BLOOD LOSS: 20 PATHOLOGY: other COMPLICATIONS: None DISPOSITION: PACU PROCEDURE DESCRIPTION: After informed consent was obtained the patient was take to the procedure room and placed in a supine position. Monitors were applied and a time out was done. The patients name, date of , procedure type, allergies to medications and metal in their body was reviewed. A bite block was placed and the patient was sedated. Once sedated and comfortable the gastroscope was advanced through the oropharynx which was grossly normal into the esophagus. The proximal and mid-esophagus were nl. In the distal esophagus there was no: varices/diverticula. She has a moderate hiatal hernia and some mild esophagitis. The scope was advanced into the stomach and through the pylorus into the 3rd portion of the duodenum. The duodenum was noted to be mild erthymatous/doudentitis. Routine Biopsies were not done b/c she is on plavix . The scope was retracted back into the stomach and biopsies were not done b/c of plavix. There were no ulcers. She has mult lg polyps- 3-4cm, and at least 20 of them. 4 of these appear to be infarcted and/or be hemorrhagic. One has adherent clot. 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 This did bleed quite redily. It was cauterized and a clip was placed on it to control the bleeding. These don't have the appearance of an overt malignancy. The scope was retroflexed. The entire stomach was carpeted in the large polyps. There are somes that these had hematoma, and this is where the blood was coming from. There is no active bleeding. There was a small hiatal hernia noted and some mild associated esphoagitis. The Z line was irregular. The scope was removed and the patient was woken up and taken back to [facility] in stable condition.
[2020-03-16] MEDS: Lisinopril 5 MG TAB 2.5 MG PO (14:51)
[2020-03-16] MEDS: Letrozole 2.5 MG TAB PO (14:53)
[2020-03-16] MEDS: Acetaminophen 325 MG TAB 650 MG PO (14:53)
[2020-03-16] MEDS: diphenhydrAMINE 25 MG CAP PO (14:53)
[2020-03-16] MEDS: Sucralfate 1 GM TAB PO ×2 (14:54→18:29)
--- NOTE | 2020-03-16 15:48 | W.PM.PROGNOT ---
Date of Service Date of service: 03/16/20 Time of Service: 15:49 Assessment and Plan Assessment and plan (1) Multiple gastric polyps: Status: Acute Assessment and plan: These are keep large and numerous. several are infaracted. This is the source of the bleeding. ONe of them was bx and may have some bleeding from this b/c of plavix. Pt should not longer be on asa/plavix. Will change her PPI. Gerd s/s are prob from developing tolerance to aciphex. Thompson has been on this for more than 3 yrs. B/c of the bx and her low hgb and plavix- I do expect for to have some bleeding. I am going to transfuse one unit. Cont on carafate and IV PPI. monioter hgb in ICU. f/u in my office in 10 days time. Subjective Subjective Interval history since last seen: The patient is doing well post-op. There pain is well controlled. They are having no nausea or vomiting. The pt is not having any chest pain or SOB, productive cough; no calf pain or swelling. The pt is making good urine. The case was discussed with nursing and pateints progress reviewed. All of the pt's home medications were addressed and adjusted accordingly for their oral intact status. HEENT: no janudice. no eye pain/drainage/redness/swelling. mild sore throat cardio- NSR no chest pain, BP stable. pulm: no sob or productive cough. no hemoptysis insicion- no abdominal pain or nausea. I discussed with the patient and/or there family about the findings in surgery and the pt's progress. We reviewed expectations for progress in the hospital; what the pt could expect for recovery time and length of stay. We discussed the importance of walking and pulmonary toilet to avoid blood clots and pneumonia. Continue current plans for pulmonary toilet, GI and DVT prophalxis. We shall continue the current plan for pain mangament as it is at an appropraite level and working well for the pt. Appriopriate measures will be taken for constipation prevention as well, and this was also reviewed witht the pt. wound care plan was reviewed with nursing as well. PICC placed PPI/carafate po protonix once d/c'ed from hosp pd [place] [facility] [place]. currently pt is H/D stable. no further plavix or ASA. No NSAID's. will transfuse 1 unit PRBC see orders Objective Last Vital Signs Temp 35.9 C L 03/16/20 15:37 Pulse 79 03/16/20 15:37 Resp 19 03/16/20 15:37 BP 142/66 H 03/16/20 15:37 Pulse Ox 99 03/16/20 15:37 Laboratory Results - last 24 hr 03/15/20 03/15/20 03/15/20 19:45 19:55 21:11 WBC 12.49 H RBC 4.35 Hgb 12.5 Hct 38.2 MCV 87.8 MCH 28.7 MCHC 32.7 RDW 16.7 H Plt Count 218 MPV 10.0 Immature Gran % 0.5 Neutrophils % 84.9 Lymphocytes % 7.4 Monocytes % 6.6 Eosinophils % 0.3 Basophils % 0.3 Nucleated RBC % 0 Absolute Neutrophils 10.60 H Absolute Lymphocytes 0.92 L Absolute Monocytes 0.82 H Absolute Eosinophils 0.04 Absolute Basophils 0.04 PT 11.2 H INR 1.1 APTT 22.2 Sodium 137 Potassium 3.7 Chloride 101 Carbon Dioxide 22.1 Anion Gap 13.9 H BUN 29 H Creatinine 0.81 Estimated GFR/1.73 m2 >= 60.00 Glucose 99 Calcium 9.1 Total Bilirubin 0.9 AST 26 ALT 25 Alkaline Phosphatase 80 Total Protein 6.6 Albumin 3.1 L COVID-19 Source SARS-CoV-2 (PCR) Influenza Type A (PCR) Influenza Type B (PCR) RSV (PCR) Patient ABO/Rh Antibody Screen Crossmatch 03/15/20 03/15/20 03/15/20 21:11 21:15 22:18 WBC RBC Hgb 11.2 Hct 34.2 L MCV MCH MCHC RDW Plt Count MPV Immature Gran % Neutrophils % Lymphocytes % Monocytes % Eosinophils % Basophils % Nucleated RBC % Absolute Neutrophils Absolute Lymphocytes Absolute Monocytes Absolute Eosinophils Absolute Basophils PT INR APTT Sodium Potassium Chloride Carbon Dioxide Anion Gap BUN Creatinine Estimated GFR/1.73 m2 Glucose Calcium Total Bilirubin AST ALT Alkaline Phosphatase Total Protein Albumin COVID-19 Source Nasopharynx SARS-CoV-2 (PCR) Negative Influenza Type A (PCR) Negative Influenza Type B (PCR) Negative RSV (PCR) Negative Patient ABO/Rh O Positive Antibody Screen Negative Crossmatch See Detail 03/16/20 03/16/20 03/16/20 00:53 06:25 06:25 WBC 6.49 D RBC 3.41 L Hgb 9.8 L 9.7 L Hct 29.7 L 29.6 L MCV 86.8 MCH 28.4 MCHC 32.8 RDW 16.9 H Plt Count 198 MPV 10.5 Immature Gran % 0.3 Neutrophils % 64.8 Lymphocytes % 23.1 Monocytes % 10.9 Eosinophils % 0.3 Basophils % 0.6 Nucleated RBC % 0 Absolute Neutrophils 4.21 Absolute Lymphocytes 1.50 Absolute Monocytes 0.71 Absolute Eosinophils 0.02 Absolute Basophils 0.04 PT INR APTT Sodium 140 Potassium 3.0 L Chloride 107 Carbon Dioxide 23.7 Anion Gap 9.3 BUN 22 H D Creatinine 0.80 Estimated GFR/1.73 m2 >= 60.00 Glucose 76 Calcium 7.8 L Total Bilirubin AST ALT Alkaline Phosphatase Total Protein Albumin COVID-19 Source SARS-CoV-2 (PCR) Influenza Type A (PCR) Influenza Type B (PCR) RSV (PCR) Patient ABO/Rh Antibody Screen Crossmatch
[2020-03-16 21:05] LABS: COVID-19 RT-PCR UVMMC Result Negative (Negative)
[2020-03-17] VITALS (54 sets, daily range): BP systolic 96–143; BP diastolic 52–79; PULSE 0–96; RESP 0–29; TEMP 35.8–36.4; O2SAT 96–98
[2020-03-17] MEDS: Sucralfate 1 GM TAB PO ×5 (00:09→20:01)
[2020-03-17] MEDS: POTASSIUM CHLORIDE/D5-0.9%NACL 1,000 ML 100 MEQ IV (02:44)
[2020-03-17] MEDS: Normal Saline Flush 10 ML SYR IVP ×2 (06:42→12:33)
[2020-03-17 06:55] LABS: Abs Immature Grans 0.02 10^3/uL (0.0-0.06); Absolute Basophil Count 0.06 10^3/uL (0.0-0.2); Absolute Eosinophil Count 0.14 10^3/uL (0.0-0.7); Absolute Lymphocyte Count 1.22 10^3/uL (1.2-3.4); Absolute Neutrophil Count 6.06 10^3/uL (1.2-6.7); Basophils % 0.7; Eosinophils % 1.7; HGB 9.6 g/dL (11.2-15.7); Immature Grans % 0.2; Lymphocytes % 14.9; MCH 28.2 pg (27.0-33.0); MPV 10.4 fL (8.0-11.0); Monocytes % 8.5; Nucleated RBC 0 %; Platelet Count 144 10^3/uL (130-400); RBC 3.41 10^6/uL (3.93-5.22); RDW 16.8 % (11.7-14.6); RDW-SD 53.2 fL
[2020-03-17 07:05] LABS: BUN 9 mg/dL (7-18); CREATININE 0.86 mg/dL (0.55-1.02); Calcium 7.5 mg/dL (8.5-10.1); Chloride 110 mmol/L (98-107); Glucose 87 mg/dL (74-106); Magnesium 0.8 mg/dL (1.8-2.4); Potassium 4.3 mmol/L (3.5-5.1); Sodium 142 mmol/L (136-145)
[2020-03-17] MEDS: PANTOPRAZOLE 80 MG in Normal Saline 100 ML 10 MG IV (07:13)
[2020-03-17] MEDS: Lisinopril 5 MG TAB 2.5 MG PO (07:36)
[2020-03-17] MEDS: DEXTROSE 5%-0.9% SALINE 1,000 ML 125 ML IV (08:10)
[2020-03-17] MEDS: MAGNESIUM SULFATE 4 GM/100 ML BAG IVPB (08:11)
--- NOTE | 2020-03-17 08:24 | W.PM.PROGNOT ---
Date of Service Date of service: 03/17/20 Time of Service: 12:43 Assessment and Plan Assessment and plan (1) Upper gastrointestinal bleeding: Status: Acute Assessment and plan: With evidence of multiple large gastric polyps on EGD. Required 1 unit of pRBCs yesterday as bled during procedure. Stable now. Discussed with general surgery: transitioned to PO protonix 40 mg PO BID, continue carafate. Transfer out of ICU. Diet per general surgery. Will need referral to GI, which general surgery is organizing. Not safe for asa/plavix at this time or on discharge. (2) Dysphagia: Status: Acute Assessment and plan: Mild esophagitis and hiatal hernia on EGD. Continue PPI/Carafate. Qualifiers: Dysphagia type: unspecified Qualified Code(s): R13.10 - Dysphagia, unspecified (3) Nonsustained paroxysmal supraventricular tachycardia: Status: Acute Assessment and plan: Replete magnesium. Monitor on tele (4) Hypomagnesemia: Status: Acute Assessment and plan: Replete and recheck in am (5) Weight loss, non-intentional: Status: Acute Assessment and plan: Given h/o breast cancer and esophageal symptoms, this is concerning for either new or recurrent malignancy. Will need outpatient referral to GI given presence of gastric polyps as well as investigation of possible recurrence of breast ca. (6) H/O: CVA (cerebrovascular accident): Status: Chronic Assessment and plan: Not safe for resumption of antiplatelet therapy at this time. Should PCP resume this in the future, the recommendation is for a single antiplatelet agent. (7) DVT prophylaxis: Status: Acute Assessment and plan: TEDS/SCDS (8) Discharge planning issues: Status: Acute Assessment and plan: Transfer out of ICU to [facility] with tele. Expected to be discharged home tomorrow with cardiac event recorder and outpatient GI follow up FUll code Subjective Subjective Interval history since last seen: Ms Galindo states that her stomach is not sick. She has been able to tolerate a full liquid diet. No BMs. Denies dizziness, chest pain, shortness of breath, palpitations, nausea, abdominal pain. 13 beats of SVT while sitting up in the chair, resting. Patient was asymptomatic. EGD: multiple polyps, some were bleeding/cauterized/clipped. Has a midline because required blood transfusion yesterday. Appetite poor, bad taste/no taste x long time. Has a follow up with Dr Ortiz. Exam Narrative Exam Narrative: General: Very pleasant elderly female who does not appear ill, but is pale HEENT: EOMI, MMM Heart: RRR, no m/r/g Lungs: CTAB Abdomen: soft, nontender, nondistended Extremities: +1 BLE edema, no c/c. Objective Last Vital Signs Temp 36 C L 03/17/20 07:47 Pulse 63 03/17/20 07:48 Resp 24 03/17/20 08:00 BP 112/73 03/17/20 07:48 Pulse Ox 98 03/17/20 07:45 Laboratory Results - last 24 hr 03/15/20 03/15/20 03/16/20 20:26 21:11 12:00 WBC RBC Hgb Cancelled Hct Cancelled MCV MCH MCHC RDW Plt Count MPV Immature Gran % Neutrophils % Lymphocytes % Monocytes % Eosinophils % Basophils % Nucleated RBC % Absolute Neutrophils Absolute Lymphocytes Absolute Monocytes Absolute Eosinophils Absolute Basophils Sodium Potassium Chloride Carbon Dioxide Anion Gap BUN Creatinine Estimated GFR/1.73 m2 Glucose Calcium Magnesium SARS-CoV-2 (PCR) Negative Nasopharyn COVID-19 PCR Not Applicable Ref Test Perform Site [facility] lab Patient ABO/Rh O Positive Antibody Screen Negative Crossmatch See Detail 03/17/20 03/17/20 06:35 06:35 WBC 8.20 RBC 3.41 L Hgb 9.6 L Hct 30.0 L MCV 88.0 MCH 28.2 MCHC 32.0 RDW 16.8 H Plt Count 144 MPV 10.4 Immature Gran % 0.2 Neutrophils % 74.0 Lymphocytes % 14.9 Monocytes % 8.5 Eosinophils % 1.7 Basophils % 0.7 Nucleated RBC % 0 Absolute Neutrophils 6.06 Absolute Lymphocytes 1.22 Absolute Monocytes 0.70 Absolute Eosinophils 0.14 Absolute Basophils 0.06 Sodium 142 Potassium 4.3 D Chloride 110 H Carbon Dioxide 22.0 Anion Gap 10.0 BUN 9 D Creatinine 0.86 Estimated GFR/1.73 m2 >= 60.00 Glucose 87 Calcium 7.5 L Magnesium 0.8 L SARS-CoV-2 (PCR) Nasopharyn COVID-19 PCR Ref Test Perform Site Patient ABO/Rh Antibody Screen Crossmatch
--- NOTE | 2020-03-17 09:11 | NS.NUTBLAN_ITS ---
Date of service: 03/17/20 Time of Service: 09:12 Nutritional Consult ASSESSMENT: 74 year old female admitted with upper GI bleed, hx of dysphagia and unintentional significant weight loss of 15 lbs in last 3 months (-10% loss). EGD indicates multiple gastric polyps. Diet advanced to Full Liquids. [employer] consult pending. Estimated Needs: [id number] kcal, 66-76 g protein, 2000 ml fluid. NUTRITIONAL DIAGNOSIS: Moderate malnutrition as evidenced by 10% weight loss in last 90 days with decreased appetite. INTERVENTION: advance diet as appropriate MONITORING AND EVALUATION: po intake, labs, weight Time Spent in Nutritional Counseling and Treatment: 0
--- NOTE | 2020-03-17 09:24 | PGE_ITS ---
Date of Service Date of service: 03/17/20 Time of Service: 09:24 Assessment and Plan Assessment and plan (1) Multiple gastric polyps: Status: Acute Assessment and plan: Patient is doing well this morning. Reviewed and discussed the use of a PPI and Carafate. Morning labs are PENDING Possible D/C home later today. f/u in my office in 10 days time. Subjective Subjective Interval history since last seen: Patient reports she is feeling well this morning. Denies any abdominal pain, nausea or vomiting over night or this morning. Exam Const General: cooperative, healthy appearing and comfortable Orientation: alert and oriented x3 Resp Effort & Inspection: normal respiratory effort, no audible wheezes and no cough Objective Last Vital Signs Temp 36 C L 03/17/20 07:47 Pulse 63 03/17/20 07:48 Resp 24 03/17/20 08:00 BP 112/73 03/17/20 07:48 Pulse Ox 98 03/17/20 07:45 Laboratory Results - last 24 hr 03/15/20 03/15/20 03/16/20 20:26 21:11 12:00 WBC RBC Hgb Cancelled Hct Cancelled MCV MCH MCHC RDW Plt Count MPV Immature Gran % Neutrophils % Lymphocytes % Monocytes % Eosinophils % Basophils % Nucleated RBC % Absolute Neutrophils Absolute Lymphocytes Absolute Monocytes Absolute Eosinophils Absolute Basophils Sodium Potassium Chloride Carbon Dioxide Anion Gap BUN Creatinine Estimated GFR/1.73 m2 Glucose Calcium Magnesium SARS-CoV-2 (PCR) Negative Nasopharyn COVID-19 PCR Not Applicable Ref Test Perform Site [facility] lab Patient ABO/Rh O Positive Antibody Screen Negative Crossmatch See Detail 03/17/20 03/17/20 06:35 06:35 WBC 8.20 RBC 3.41 L Hgb 9.6 L Hct 30.0 L MCV 88.0 MCH 28.2 MCHC 32.0 RDW 16.8 H Plt Count 144 MPV 10.4 Immature Gran % 0.2 Neutrophils % 74.0 Lymphocytes % 14.9 Monocytes % 8.5 Eosinophils % 1.7 Basophils % 0.7 Nucleated RBC % 0 Absolute Neutrophils 6.06 Absolute Lymphocytes 1.22 Absolute Monocytes 0.70 Absolute Eosinophils 0.14 Absolute Basophils 0.06 Sodium 142 Potassium 4.3 D Chloride 110 H Carbon Dioxide 22.0 Anion Gap 10.0 BUN 9 D Creatinine 0.86 Estimated GFR/1.73 m2 >= 60.00 Glucose 87 Calcium 7.5 L Magnesium 0.8 L SARS-CoV-2 (PCR) Nasopharyn COVID-19 PCR Ref Test Perform Site Patient ABO/Rh Antibody Screen Crossmatch
[2020-03-17] MEDS: Magnesium Chloride 64 MG TABCR PO ×2 (09:45→20:00)
[2020-03-17] MEDS: Pantoprazole 40 MG TABCR PO ×2 (11:08→20:01)
[2020-03-17 13:21] LABS: HCT 33.9 % (36.0-46.0); HGB 10.8 g/dL (11.2-15.7)
--- NOTE | 2020-03-17 14:17 | CMPROGNOTE_ITS ---
- If Service Date Differs Date of service: 03/17/20 Time of Service: 14:17 Care Management Progress Note S/O: Desirae was sitting up in her chair when CM met with her. She stated I'm going to go home today! with excitement. She stated that the surgeon cleared her for discharge with out patient follow up. CM stated that she has two providers while here, and the hospitalist will also weigh in on her discharge plan. Per report, Desirae will remain at [facility] for monitoring overnight. She may be ready for discharge tomorrow. CM will continue to follow. A: Desirae is a 74 year old female admitted to [facility] on 03/15/20 for GI Bleed. P: Anticipate Desirae will return home when medically cleared with no services. Her will drive her home via private vehicle. She will follow up with her PCP and discharge plan of care. CM will continue to follow.
[2020-03-17] MEDS: Atorvastatin 40 MG TAB PO (20:00)
[2020-03-17] MEDS: Normal Saline Flush 10 ML SYR 20 ML IVP (20:02)
[2020-03-18] VITALS (9 sets, daily range): BP systolic 123–132; BP diastolic 69–93; PULSE 59–71; RESP 13–18; TEMP 36.1; O2SAT 91
[2020-03-18] MEDS: Normal Saline Flush 10 ML SYR IVP (06:42)
[2020-03-18] MEDS: Magnesium Chloride 64 MG TABCR PO (07:25)
[2020-03-18] MEDS: Lisinopril 5 MG TAB 2.5 MG PO (07:25)
[2020-03-18] MEDS: Sucralfate 1 GM TAB PO ×2 (07:25→10:27)
[2020-03-18] MEDS: Atorvastatin 40 MG TAB PO (07:25)
[2020-03-18] MEDS: Normal Saline Flush 10 ML SYR 20 ML IVP (07:26)
[2020-03-18] MEDS: Pantoprazole 40 MG TABCR PO (07:26)
[2020-03-18 08:13] LABS: HCT 35.6 % (36.0-46.0); HGB 11.4 g/dL (11.2-15.7)
[2020-03-18 08:27] LABS: Anion Gap 9.2 mmol/L (3-11); BUN 5 mg/dL (7-18); CO2 22.8 mmol/L (21.0-32.0); Calcium 8.2 mg/dL (8.5-10.1); Chloride 108 mmol/L (98-107); Glucose 80 mg/dL (74-106); Magnesium 1.7 mg/dL (1.8-2.4); Potassium 4.1 mmol/L (3.5-5.1); Sodium 140 mmol/L (136-145)
[2020-03-18] MEDS: MAGNESIUM SULFATE 2 GM/50 ML BAG IVPB (10:24)
--- NOTE | 2020-03-18 10:42 | W.PM.DS.N ---
Date of service: 03/18/20 Time of Service: 10:43 DS: Diagnosis Discharge Diagnosis (1) Upper gastrointestinal bleeding: Status: Acute (2) Multiple gastric polyps: Status: Acute (3) Anemia due to acute blood loss: Status: Acute (4) Esophagitis: Status: Acute (5) Dysphagia: Status: Chronic (6) Nonsustained paroxysmal supraventricular tachycardia: Status: Resolved Asessment and Plan: Going home with a cardiac event recorder (7) Hypomagnesemia: Status: Acute (8) Weight loss, non-intentional: Status: Acute (9) H/O: CVA (cerebrovascular accident): Status: Chronic (10) COVID-19 ruled out by laboratory testing: Status: Ruled-out Discharge Plan Disposition Patient Disposition: HOME Condition: Serious Discharge Details Reason For Visit: GI BLEED Admit Date/Time: 03/17/20 12:46 Admit Provider: Lauro Estrada Attending Provider: Citlalli Weir Primary Care Provider: Laura Ortiz [facility] Hospital Course: Ms Galindo is a 74 year old female with PMHx of CVA 20 years ago, for which she was on combination of aspirin and plavix, as well as h/o breast cancern in remission, hypertension, hypokalemia, who was admitted to [facility] ICU under the hospitalist service on 03/15/2020 after presenting with hematemesis. She did not have active bleeding in the hospital. Her aspirin and plavix were held, and she was made NPO and placed on a protonix drip. She underwent an EGD on 03/16/2020 which revealed mild esophagitis, a moderate hiatal hernia, mild duodenitis, and multiple gastric polyps (at least 20, 3-4 cm), some of which appeared infarcted and with signs of recent bleeding. One of the polyps was biopsied and had to be clipped. Pathology is still pending. EBL was 20 cc, but the patient did require 1 unit of blood post-operatively. She did quite well postoperatively, tolerating advancement of diet. She was downgraded to [facility] level of care on 03/17/2020. Her H/H is 11.4/35.6 on the day of discharge. She is going to require follow up with [facility], for which a referral has been sent. She is not safe to be resumed on aspirin or plavix at this time. At the point, when resumption of antiplatelet therapy is deemed safe by GI, only one of these agents should be resumed, which we will defer to PCP. Additionally, the patient did have an episode of non-sustained asymptomatic SVT while hypomagnesemic on this admission. Her electrolyte abnormalities were corrected and will need outpatient follow up in 1 week. She is going home with a cardiac event recorder to observe for any more episodes of SVT. She has bloodwork ordered for 1 week from now (CBC, BMP, magnesium). She will need follow up with her PCP within 1-2 weeks. As the patient has been losing weight unintentionally and has a h/o breast cancer in remission, outpatient malignancy workup is recommended. Care for patient as well as completion of her discharge summary took 45 minutes on day of discharge. Home Meds and New Rx's Prescriptions: New magnesium chloride [Mag 64] 64 mg Tablet,Delayed Release (Dr/Ec) 64 mg PO BID Qty: 60 RF: 0 pantoprazole 40 mg Tablet,Delayed Release (Dr/Ec) 40 mg PO BID@0730,2000 Qty: 60 RF: 0 sucralfate 1 gram Tablet 1 g PO AC & HS Qty: 120 RF: 0 Continued atorvastatin 40 MG tablet 40 mg PO DAILY RF: 0 lisinopril 5 mg tablet 2.5 mg PO DAILY RF: 0 Discontinued potassium chloride [Klor-Con 10] 10 MEQ tablet extended release 10 meq PO RF: 0 clopidogrel [Plavix] 75 MG tablet 75 mg PO DAILY RF: 0 aspirin [Aspirin Low Dose] 81 MG tablet,delayed release (DR/EC) 81 mg PO DAILY RF: 0 bisacodyl [Dulcolax (bisacodyl)] 5 MG tablet,delayed release (DR/EC) 5 mg PO ONCE Qty: 4 RF: 0 Discharge Instructions Instructions: Sucralfate (By mouth), Pantoprazole (By mouth), Supraventricular Tachycardia (DC), Gastritis (DC), Diet for Stomach Ulcers and Gastritis (GEN), Gastric Polyps (DC) Additional Instructions: Follow a low acid bland diet. Return to the hospital with any recurrence of bleeding, fever, chest pain, or shortness of breath. Follow up with your PCP in 1-2 weeks. Follow up with [facility] - they will call to set up an appointment. A referral has been sent. Bloodwork in 1 week - results to Dr Ortiz. Referrals: GASTROENTEROLOGY,[facility] [OTHER] - Rosy Simmons MD [[facility] STAFF PHYSICIAN] - Laura Ortiz MD [Primary Care Provider] - Activity:: Activity as Tolerated Equipment/Supplies:: cardiac event recorder Diet:: Gastritis diet Discharge Orders Discharge Orders: Discharge Order (Routine); Ordered 03/18/20 Ordered By: Citlalli Weir Other Ambulatory Orders: Basic Metabolic Panel (Routine) Timeframe: 1 Week Facility: [facility] - Location: Laboratory Outpatient Ordered By: Citlalli Weir Complete Blood Count w/Diff (Routine) Timeframe: 1 Week Facility: [facility] - Location: Laboratory Outpatient Ordered By: Citlalli Weir Magnesium (Routine) Timeframe: 1 Week Facility: [facility] - Location: Laboratory Outpatient Ordered By: Citlalli Weir Cardiac Event Recorder (Outpt) (ONCE) Timeframe: 20200319 Facility: [facility] - Location: Respiratory Therapy Ordered By: Citlalli Weir DS: Summary Status at Discharge Functional status at discharge: independent ambulation Overall status at discharge: patient is progressing back to baseline Mental Status: mental status grossly normal Speech and Movement: speech and movement normal Mood: congruent mood Affect: normal affect Exam Narrative Exam Narrative: General: Very pleasant elderly female who does not appear ill, but is pale HEENT: EOMI, MMM Heart: RRR, no m/r/g Lungs: CTAB Abdomen: soft, nontender, nondistended Extremities: +1 BLE edema, no c/c. Psych Mental Status: mental status grossly normal Speech and Movement: speech and movement normal Mood: congruent mood Affect: normal affect DS: Data Vitals/I&O Vitals and I&O: Vital Signs Temperature 36.1 C L 03/18/20 05:08 Temperature Source Temporal Artery Scan 03/17/20 19:30 Pulse 61 03/18/20 05:08 Pulse 61 03/18/20 02:00 Respiratory Rate 16 03/18/20 05:08 Respiratory Effort 03/18/20 07:51 Respiratory Depth Normal 03/18/20 07:51 Respiratory Pattern Normal 03/18/20 07:51 Blood Pressure 123/69 03/18/20 05:08 Blood Pressure Mean 93 03/17/20 19:33 Blood Pressure Position Supine 03/17/20 04:27 Pulse Oximetry 91 L 03/18/20 04:00 Oxygen Delivery Method Room Air 03/17/20 19:30 Oxygen Flow Rate 0 03/17/20 19:30 Pain Level 0 03/18/20 05:08 Intake & Output 03/17/20 03/17/20 03/18/20 11:59 23:59 11:59 Intake Total 1431.667 / 2601.667 1170 / 2601.667 420 / 420 Output Total 850 / 1200 350 / 1200 580 / 580 Balance 581.667 / 1401.667 820 / 1401.667 -160 / -160 Weight 66 kg 64.9 kg Intake: IV 1131.667 / 1851.667 720 / 1851.667 60 / 60 Oral 300 / 750 450 / 750 360 / 360 Output: Urine 850 / 1200 350 / 1200 580 / 580 Other: Urine Color Yellow Yellow Yellow Urine Appearance Clear Clear Clear Urine Odor Strong Strong None Voiding Methods Bedside Commode Bedside Commode Bedside Commode Data Completed and Pending Completed studies during hospitalization [Text1]: XR flat and upright/PA chest 03/15/2020: 1. Nonobstructive bowel gas pattern. 2. Question of wall thickening of the gastric body which may reflect gastritis. Please correlate clinically. 3. No free air. 4. No acute pulmonary process. Labs on day of discharge: Labs from last 24 hours 03/18/20 03/18/20 03/17/20 08:04 08:04 12:48 Hgb 11.4 10.8 L Hct 35.6 L 33.9 L Sodium 140 Potassium 4.1 Chloride 108 H Carbon Dioxide 22.8 Anion Gap 9.2 BUN 5 L Creatinine 0.70 Estimated GFR/1.73 m2 >= 60.00 Glucose 80 Calcium 8.2 L Magnesium 1.7 L PFSH Medical History (Updated 03/18/20 @ 10:46 by Citlalli Weir MD) GERD (gastroesophageal reflux disease) No history of formal endoscopic evaluation but empirically treated with AcipHex History of breast cancer (~2011) Treated with left breast lumpectomy and sentinel lymph node biopsies and subsequent radiation and chemotherapy; follow-up through [facility] History of stroke HTN (hypertension) Multiple gastric polyps bleeding adn necrotic Surgical History S/P breast lumpectomy (~2011) Status post laparotomy Performed for evaluation of possible ectopic but none found Family History Father No problems noted. Other Colon cancer Social History Smoking/Tobacco Use Status: Never Smoking risk assessment performed?: Yes Alcohol Intake: current Alcohol Intake frequency: 0-2 drinks per day Alcohol type: beer and wine Substance use type: does not use Do you feel safe at home: Yes Do you feel safe in your relationship?: Yes History History 0 Para Hx # Term Pregnancies Multiple births Hx # Pregnancies Ectopic pregnancies AB induced Hx Number of Living Children AB spontaneous
--- NOTE | 2020-03-18 12:12 | W.NUTRFU ---
Date of service: 03/18/20 Time of Service: 12:12 Nutritional Follow up NOTE: Met with Desirae prior to discharge to review low acid diet and how to meet nutrient and fluid needs despite limited meal options and lack of appetite. Will follow up 03/23/20 via phone call. Time Spent in Nutritional Counseling and Treatment: 20 min
--- NOTE | 2020-03-18 13:20 | PDOC.CMDIS ---
- If Service Date Differs Date of service: 03/18/20 Time of Service: 13:20 LACE Index Scoring Tool - Questions: Length of Stay (in days): 3 Acuity (Admit via E.D.?): Yes Comorbidities: Cerebrovascular Disease E.D. Visits: 1 - Answers: Total Score: 8 Risk of Readmission: Low Risk Care Management Discharge Reason for Hospitalization: GI Bleed Discharge Plan: Desirae will return home today with no new services. She will follow up with GI at [facility], coordinated by surgical services. She will also follow up with her PCP and discharge plan of care. Her will drive her home via private vehicle. She is happy to be going home before [place]. Patient/Family Education Needs: Review discharge instructions regarding activity levels and medications, discussion of self care needs including ask me three.
== END 2020-03-18 12:39 | disposition home or self-care (01) | DRG 394 ==
LOC: ER 20:56 → ICU 23:57
PROVIDERS: Surgery; Admitting Provider Internal Medicine; Emergency Provider Nurse Practitioner Acute Care; PCP Family Medicine; Visit Provider Internal Medicine
PROC: 0DJ68ZZ Inspection of Stomach, Via Natural or Artificial Opening Endoscopic (ICD-10-PCS; CPT 43235; principal; 2020-03-16 12:00)
DX: K31.7 Polyp of stomach and duodenum (principal); K92.0 Hematemesis; I47.1 Supraventricular tachycardia; D62 Acute posthemorrhagic anemia; R63.4 Abnormal weight loss; R13.10 Dysphagia, unspecified; R43.2 Parageusia; Z85.3 Personal history of malignant neoplasm of breast; Z86.73 Personal history of transient ischemic attack (TIA), and cerebral infarction without residual deficits; Z79.01 Long term (current) use of anticoagulants; Z79.82 Long term (current) use of aspirin; K21.9 Gastro-esophageal reflux disease without esophagitis; I10 Essential (primary) hypertension; Z92.3 Personal history of irradiation; Z92.21 Personal history of antineoplastic chemotherapy; K44.9 Diaphragmatic hernia without obstruction or gangrene; K20.90 Esophagitis, unspecified without bleeding; K29.80 Duodenitis without bleeding; E83.42 Hypomagnesemia
CPT/HCPCS: 43239; 43255; 36410; 36415; 36430; 36592; 80048; 80053; 86850; 86900; 86901; 86920; 87637; 88305; 93005; 93270; 96361; 96374; 96375; 96376; 99214; 99223; 99231; 99232; 99239; 99252; 99285; NC; U0003; 74022; 83735; 85014; 85018; 85025; 85610; 85730; 93010; 99220; J2001; J2405; J2704; J3475; J3480; J7042; P9016

== ENCOUNTER 2020-03-24 03:15 | Outpatient (CLI) | payer MEDICARE, BC, SELFPAY ==
[2020-03-24 09:25] LABS: Abs Immature Grans 0.05 10^3/uL (0.0-0.06); Absolute Basophil Count 0.07 10^3/uL (0.0-0.2); Absolute Eosinophil Count 0.06 10^3/uL (0.0-0.7); Absolute Lymphocyte Count 1.41 10^3/uL (1.2-3.4); Absolute Monocyte Count 1.12 10^3/uL (0.1-0.8); Absolute Neutrophil Count 4.37 10^3/uL (1.2-6.7); Eosinophils % 0.8; HCT 36.1 % (36.0-46.0); HGB 11.4 g/dL (11.2-15.7); Immature Grans % 0.7; Lymphocytes % 19.9; MCH 28.3 pg (27.0-33.0); MCHC 31.6 % (32.0-36.0); MCV 89.6 fL (80-95); MPV 10.7 fL (8.0-11.0); Monocytes % 15.8; Neutrophils % 61.8; Nucleated RBC 0 %; Platelet Count 256 10^3/uL (130-400); RBC 4.03 10^6/uL (3.93-5.22); RDW 15.9 % (11.7-14.6); RDW-SD 52.1 fL; WBC 7.08 10^3/uL (4.4-10.8)
[2020-03-24 09:57] LABS: Hemoglobin A1C 5.3 % (<5.7)
[2020-03-24 10:13] LABS: Magnesium 1.2 mg/dL (1.8-2.4)
[2020-03-24 10:22] LABS: ALT 29 U/L (14-59); AST 22 U/L (15-37); Albumin 3.2 g/dL (3.4-5.0); Alkaline Phosphatase 60 U/L (46-116); Anion Gap 10.1 mmol/L (3-11); BUN 12 mg/dL (7-18); Bilirubin, Total 0.3 mg/dL (0.2-1.0); CO2 24.9 mmol/L (21.0-32.0); CREATININE 0.79 mg/dL (0.55-1.02); Calcium 9.2 mg/dL (8.5-10.1); Calculated LDL 70 mg/dL (<100); Chloride 105 mmol/L (98-107); Cholesterol 151 mg/dL (<200); Glucose 100 mg/dL (74-106); HDL Cholesterol 58 mg/dL (40-60); Sodium 140 mmol/L (136-145); Total Protein 6.2 g/dL (6.4-8.2); Triglyceride 116 mg/dL (<150)
== END 2020-03-24 03:35 ==
PROVIDERS: PCP Family Medicine; Visit Provider Internal Medicine
DX: E83.42 Hypomagnesemia (principal); D62 Acute posthemorrhagic anemia; I10 Essential (primary) hypertension; E78.5 Hyperlipidemia, unspecified; F10.10 Alcohol abuse, uncomplicated; R73.03 Prediabetes
CPT/HCPCS: 36415; 80053; 80061; 83036; 83735; 85025

== ENCOUNTER 2020-04-06 12:51 | Outpatient (REF) | payer MEDICARE, BC, SELFPAY ==
[2020-04-06 18:29] LABS: HCT 35.1 % (36.0-46.0); MCH 27.6 pg (27.0-33.0); MCHC 31.3 % (32.0-36.0); MPV 10.7 fL (8.0-11.0); Platelet Count 298 10^3/uL (130-400); RBC 3.99 10^6/uL (3.93-5.22); RDW 15.2 % (11.7-14.6); RDW-SD 49.1 fL; WBC 11.99 10^3/uL (4.4-10.8)
[2020-04-06 18:50] LABS: Anion Gap 9.7 mmol/L (3-11); BUN 13 mg/dL (7-18); CO2 25.3 mmol/L (21.0-32.0); CREATININE 0.71 mg/dL (0.55-1.02); Calcium 9.1 mg/dL (8.5-10.1); Chloride 102 mmol/L (98-107); Folate 4.9 ng/mL (8.6-20.0); Glucose 96 mg/dL (74-106); Magnesium 1.2 mg/dL (1.8-2.4); Potassium 3.6 mmol/L (3.5-5.1); Sodium 137 mmol/L (136-145); Vitamin B12 435 pg/mL (193-986)
--- NOTE | 2020-05-04 08:45 | W.CARDEVENT ---
Date of service: 05/04/20 Time of Service: 08:45 Cardiac Event Recorder Referring Provider:: Diana Indications:: SVT Cardiac Event Note: This is a 30-day event recorder ordered for indication of supraventricular tachycardia. ?The patient was normal sinus rhythm with majority the recording with an average heart rate of 60 bpm. ?There were 18 auto triggered events which were associated with sinus rhythm and PACs. ?There were 2 brief episodes of what appear atrial fibrillation (versus flutter with variable conduction). The patient was asymptomatic during these times. ?The patient had 2 triggered events which were associated with sinus rhythm and a PAC. ?There were no episodes of ventricular tachycardia, no pauses greater than 3 seconds and no evidence of high degree heart block.
== END 2020-04-06 13:11 ==
LOC: NCHCN 12:51
PROVIDERS: PCP Family Medicine; Visit Provider Family Medicine
DX: I10 Essential (primary) hypertension (principal); E53.8 Deficiency of other specified B group vitamins; Z87.19 Personal history of other diseases of the digestive system
CPT/HCPCS: 80048; 85027; 82607; 82746; 83735

== ENCOUNTER 2020-05-04 08:45 | Outpatient (CLI) | payer MEDICARE, BC, SELFPAY | END 2020-05-04 08:46 | LOC: CARDO 06-16 15:58 | PROVIDERS: PCP Family Medicine; Referring Provider Internal Medicine Cardiovascular Disease; Visit Provider Internal Medicine Cardiovascular Disease | DX: I47.1 Supraventricular tachycardia (principal); I49.1 Atrial premature depolarization; I48.91 Unspecified atrial fibrillation | CPT/HCPCS: 93272 ==

== ENCOUNTER 2020-07-14 08:48 | Outpatient (CLI) | payer MEDICARE, BC, SELFPAY ==
--- NOTE | 2020-07-14 09:00 | RT.EKG_ITS ---
APPROVED REPORT Exam: Resting ECG Patient Location: O HR:68 bpm ECG Measurements Heart Rate 68 AXIS AR 142 P 30 QRSd 80 QRS -24 QT 406 T -3 QTc 432 Conclusion Sinus rhythm...normal P axis, V-rate 50- 99 Atrial premature complex... low voltage
== END 2020-07-14 08:49 | disposition home or self-care (01) ==
LOC: DI.CARD 09:06
PROVIDERS: PCP Family Medicine; Referring Provider Family Medicine; Visit Provider Internal Medicine Cardiovascular Disease
DX: I48.91 Unspecified atrial fibrillation (principal)
CPT/HCPCS: 93010

== ENCOUNTER → 2020-07-14 08:48 | Outpatient (BNVA) | payer MEDICARE, BC, SELFPAY | PROVIDERS: PCP Family Medicine; Referring Provider Family Medicine; Visit Provider Internal Medicine Cardiovascular Disease | DX: I47.1 Supraventricular tachycardia (principal); I10 Essential (primary) hypertension; K31.7 Polyp of stomach and duodenum | CPT/HCPCS: 93005; 99203; 99213 ==

== ENCOUNTER 2020-09-10 13:51 | Outpatient (CLI) | payer MEDICARE, BC, SELFPAY ==
--- NOTE | 2020-09-10 11:01 | DI.RAD_ITS ---
Exam(s) XR LUMBAR SPINE COMPLETE EXAM: XR LUMBAR SPINE COMPLETE CLINICAL HISTORY: LUMBAR SPINE PAIN, M54.5. TECHNIQUE: 2D digital imaging was performed. COMPARISON: No exams were available for comparison FINDINGS: No evidence of fracture. However, there is approximately 1 centimeter anterior listhesis of L4 relat buddy to L5 due to degenerative changes in the facet joints. There is moderate disc space narrowing at this level also evident. There is advanced disc space narrowing at L5-S1 level without listhesis at this level. Mild disc space narrowing at L3-4 and L1-2 levels as well as lower levels in the thorac ic spinal column. Multilevel degenerative changes are noted in the facet joints. There is no scoliosis. Sacroiliac maurizio ints appear unremarkable. There is prominent soft tissue calcification seen in the right buttock. IMPRESSION: Multilevel degenerative disc disease. Also degenerative anterolisthesis of L4 upon L5 DATA REPOSITORY: RADIATION DOSE DELIVERED:
--- NOTE | 2020-09-10 11:01 | DI.RAD_ITS ---
Exam(s) XR HIP LT COMPLETE AP PELVIS EXAM: XR HIP LT COMPLETE AP PELVIS CLINICAL HISTORY: LT HIP JOINT PAIN, M25.552. TECHNIQUE: 2D digital imaging was performed. COMPARISON: No exams were available for comparison FINDINGS: Is no evidence of pelvic nor hip fracture. No degenerative changes in the hips evident. Prominent c alcified buttock calcification on the right side noted. No osseous lesions. IMPRESSION: DATA REPOSITORY: RADIATION DOSE DELIVERED:
== END 2020-09-10 14:11 ==
PROVIDERS: PCP Family Medicine; Visit Provider Family Medicine
DX: M51.36 Other intervertebral disc degeneration, lumbar region (principal); M43.16 Spondylolisthesis, lumbar region; M25.552 Pain in left hip
CPT/HCPCS: 72110; 73502

== ENCOUNTER 2021-03-10 01:35 | Outpatient (CLI) | payer MEDICARE, BC, SELFPAY ==
[2021-03-10 08:39] LABS: HCT 39.5 % (36.0-46.0); HGB 12.5 g/dL (11.2-15.7); MCH 29.6 pg (27.0-33.0); MCHC 31.6 % (32.0-36.0); MCV 93.4 fL (80-95); MPV 9.9 fL (8.0-11.0); Platelet Count 250 10^3/uL (130-400); RBC 4.23 10^6/uL (3.93-5.22); RDW 16.1 % (11.7-14.6); RDW-SD 55.6 fL; WBC 7.44 10^3/uL (4.4-10.8)
[2021-03-10 09:17] LABS: Iron 65 ug/dL (50-170); Total Iron Binding Capacity 406 ug/dL (250-450); Transferrin Sat 16 % (15-50)
[2021-03-10 09:38] LABS: ALT 27 U/L (14-59); AST 19 U/L (15-37); Albumin 3.8 g/dL (3.4-5.0); Alkaline Phosphatase 81 U/L (46-116); Anion Gap 8.8 mmol/L (3-11); BUN 11 mg/dL (7-18); Bilirubin, Total 0.8 mg/dL (0.2-1.0); CO2 28.2 mmol/L (21.0-32.0); CREATININE 0.7 mg/dL (0.55-1.02); Chloride 104 mmol/L (98-107); Folate 19.8 ng/mL (8.6-20.0); Glucose 100 mg/dL (74-106); Magnesium 1.4 mg/dL (1.8-2.4); Potassium 3.4 mmol/L (3.5-5.1); Sodium 141 mmol/L (136-145); Total Protein 7.3 g/dL (6.4-8.2); Vitamin B12 531 pg/mL (193-986)
[2021-03-12 12:17] LABS: Zinc, Serum 0.68 mcg/mL (0.66-1.10)
[2021-03-13 12:42] LABS: Pyridoxal 5-Phosphate (PLP), P 5 mcg/L (5-50)
[2021-03-13 13:50] LABS: Riboflavin (Vitamin B2), P 4 mcg/L (1-19)
[2021-03-15 08:41] LABS: Thiamine (Vitamin B1), WB 115 nmol/L (70-180)
[2021-03-17 10:52] LABS: Biotin (Vitamin B7), Serum 3554.7 pg/mL
[2021-03-17 14:29] LABS: Niacin (Vitamin B3), Plasma 3.23 ug/mL
[2021-03-17 15:24] LABS: Misc Referral (MAYO) See Comments
== END 2021-03-10 01:36 | disposition home or self-care (01) ==
LOC: LBO 01:35
PROVIDERS: PCP Family Medicine; Visit Provider Family Medicine
DX: D64.9 Anemia, unspecified (principal); R43.2 Parageusia; E53.8 Deficiency of other specified B group vitamins; E55.9 Vitamin D deficiency, unspecified; M85.88 Other specified disorders of bone density and structure, other site; E63.9 Nutritional deficiency, unspecified; E83.42 Hypomagnesemia
CPT/HCPCS: 36415; 80053; 84252; 84591; 85027; 82607; 82746; 83540; 83550; 83735; 84207; 84425; 84590; 84630

== ENCOUNTER 2022-04-27 15:44 | Outpatient (REF) | payer MEDICARE, SELFPAY ==
[2022-04-27 20:38] LABS: Anion Gap 12.1 mmol/L (3-11); BUN 7 mg/dL (7-18); CO2 24.9 mmol/L (21.0-32.0); CREATININE 0.6 mg/dL (0.55-1.02); Calcium 8.9 mg/dL (8.5-10.1); Chloride 101 mmol/L (98-107); Estimated GFR 94.13 (mL/min/1.73m2); Glucose 94 mg/dL (74-106); Potassium 3.2 mmol/L (3.5-5.1); Sodium 138 mmol/L (136-145); TSH (W/Ref FT4) 3.55 uIU/mL (0.36-3.74)
[2022-04-27 20:53] LABS: Magnesium 0.7 mg/dL (1.8-2.4)
== END 2022-04-27 15:45 | disposition home or self-care (01) ==
LOC: NCHCN 15:44
PROVIDERS: PCP Family Medicine; Visit Provider Family Medicine
DX: F41.9 Anxiety disorder, unspecified (principal); E83.42 Hypomagnesemia; I10 Essential (primary) hypertension
CPT/HCPCS: 80048; 83735; 84443

== ENCOUNTER 2022-06-09 11:07 | Outpatient (CLI) | payer MEDICARE, SELFPAY ==
--- NOTE | 2022-06-09 10:15 | DI.RAD_ITS ---
Exam(s) XR KNEE RT 3V AP,LAT,MERRY EXAM: XR KNEE RT 3V AP,LAT,MERRY CLINICAL HISTORY: R knee pain. TECHNIQUE: 2D digital imaging was performed. Three views. COMPARISON: No exams were available for comparison FINDINGS: BONES: No acute fracture is present. No bony destructive lesion is seen. JOINTS: There is prominent periarticular spurring throughout. There is severe narrowing of the media l femoral tibial joint space with a [id number] appearance. There is some flattening of the medial femoral condyle. Varus angulation at the knee. No joint effusion is seen. SOFT TISSUE: Normal. IMPRESSION: Severe degenerative changes of the medial femoral tibial joint. DATA REPOSITORY: RADIATION DOSE DELIVERED:
== END 2022-06-09 11:08 | disposition home or self-care (01) ==
LOC: DIORS 11:07
PROVIDERS: PCP Family Medicine; Referring Provider Family Medicine; Visit Provider Student in an Organized Health Care Education/Training Program
DX: M17.11 Unilateral primary osteoarthritis, right knee (principal)
CPT/HCPCS: 20610; 73562; J1040

== ENCOUNTER 2022-06-14 13:55 | Outpatient (REF) | payer MEDICARE, SELFPAY ==
[2022-06-14 17:36] LABS: Anion Gap 11.9 mmol/L (3-11); BUN 13 mg/dL (7-18); CO2 27.1 mmol/L (21.0-32.0); CREATININE 0.8 mg/dL (0.55-1.02); Calcium 9.6 mg/dL (8.5-10.1); Chloride 106 mmol/L (98-107); Estimated GFR 77.27 (mL/min/1.73m2); Glucose 107 mg/dL (74-106); Magnesium 1.4 mg/dL (1.8-2.4); Potassium 3.2 mmol/L (3.5-5.1); Sodium 145 mmol/L (136-145)
== END 2022-06-14 13:56 | disposition home or self-care (01) ==
LOC: NCHCN 13:55
PROVIDERS: PCP Family Medicine; Visit Provider Family Medicine
DX: E83.42 Hypomagnesemia (principal); E87.6 Hypokalemia
CPT/HCPCS: 80048; 83735

== ENCOUNTER 2022-08-18 11:44 | Outpatient (CLI) | payer MEDICARE, SELFPAY ==
--- NOTE | 2022-08-18 10:15 | DI.RAD_ITS ---
Exam(s) XR STANDING ALIGNMENT XR KNEE RT 1V EXAM: XR STANDING ALIGNMENT and XR knee RT 1 V CLINICAL HISTORY: pre TKA eval of alignment. TECHNIQUE: 2D digital imaging was performed. Five images were obtained. COMPARISON: CR XR KNEE RT 3V AP,LAT,MERRY from 06/09/2022 FINDINGS: BONES: The hips are well maintained. There are marked degenerative changes seen in the right knee wi th joint space narrowing and periarticular spurring involving all 3 joint compartments. The findings are most marked in the medial femoral tibial and patellofemoral joint. There are mild degenerative changes in the left knee with periarticular spurring seen laterally. The ankles are well maintained. There is no significant leg length discrepancy. SOFT TISSUE: Normal. IMPRESSION: Marked osteoarthritis of the right knee. DATA REPOSITORY: RADIATION DOSE DELIVERED:
== END 2022-08-18 11:45 | disposition home or self-care (01) ==
LOC: DIORS 11:45
PROVIDERS: PCP Family Medicine; Referring Provider Family Medicine; Visit Provider Student in an Organized Health Care Education/Training Program
DX: M17.11 Unilateral primary osteoarthritis, right knee (principal)
CPT/HCPCS: 73560; 77073

== ENCOUNTER 2022-08-18 12:33 | Outpatient (CLI) | payer MEDICARE, SELFPAY ==
[2022-08-18 12:22] LABS: HCT 41.2 % (36.0-46.0); HGB 13.7 g/dL (11.2-15.7); MCH 31.1 pg (27.0-33.0); MCHC 33.3 % (32.0-36.0); MCV 93 fL (80-95); MPV 9.8 fL (8.0-11.0); Platelet Count 257 10^3/uL (130-400); RBC 4.41 10^6/uL (3.93-5.22); RDW 12.6 % (11.7-14.6); RDW-SD 43.4 fL; WBC 11.02 10^3/uL (4.4-10.8)
[2022-08-18 13:39] LABS: Anion Gap 9.5 mmol/L (3-11); BUN 15 mg/dL (7-18); CO2 23.5 mmol/L (21.0-32.0); CREATININE 0.7 mg/dL (0.55-1.02); Calcium 9.4 mg/dL (8.5-10.1); Chloride 104 mmol/L (98-107); Estimated GFR 90.14 (mL/min/1.73m2); Glucose 109 mg/dL (74-106); Potassium 3.9 mmol/L (3.5-5.1); Sodium 137 mmol/L (136-145)
== END 2022-08-18 12:34 | disposition home or self-care (01) ==
LOC: LBO 12:36
PROVIDERS: PCP Family Medicine; Visit Provider Student in an Organized Health Care Education/Training Program
DX: M25.561 Pain in right knee (principal); M17.11 Unilateral primary osteoarthritis, right knee; Z01.818 Encounter for other preprocedural examination; Z01.812 Encounter for preprocedural laboratory examination
CPT/HCPCS: 36415; 80048; 85027

== ENCOUNTER 2022-08-23 08:22 | Day surgery (SDC) | payer MEDICARE, SELFPAY ==
[2022-08-23] VITALS (10 sets, daily range): BP systolic 107–162; BP diastolic 47–108; PULSE 61–74; RESP 15–21; TEMP 36–36.6; O2SAT 96–100; BMI 26.3
--- NOTE | 2022-08-23 | DI.RAD_ITS ---
Exam(s) XR KNEE RT 2V AP,LAT EXAM: XR KNEE RT 2V AP,LAT CLINICAL HISTORY: medial distal femur fracture s/p TKA. TECHNIQUE: 2D digital imaging was performed. COMPARISON: CR XR KNEE RT 1V from 08/18/2022 FINDINGS: 3 views There has been interval arthroplasty. On these postop images there is satisfactory position alignmen t of the components of the newly placed prosthesis. No fracture or loosening of the tibial components. There is an additional medial towards lateral scr ew in the femoral condyles. In addition, on the AP view there is an osteophytic density measuring 1. 3 by 0.8 centimetres.. Probable loose body. Better seen on the frontal than on the lateral view. IMPRESSION: Prosthesis component appears satisfactory. However, there is a 13 x 8 millimeter intra-articular oss eous density seen centrally in the joint space on the AP view. DATA REPOSITORY: RADIATION DOSE DELIVERED:
[2022-08-23] MEDS: Acetaminophen 500 MG TAB 1000 MG PO (08:52)
[2022-08-23] MEDS: Celecoxib 200 MG CAP 400 MG PO (08:52)
[2022-08-23] MEDS: Gabapentin 300 MG CAP PO (08:53)
--- NOTE | 2022-08-23 09:24 | ANES.PREOP_ITS ---
General Info Date of Service Date Performed: 08/23/22 Height: 4 ft 11 in Weight: 59.058 kg Body Mass Index (BMI): 26.3 Surgical Procedure: Operation Date: 08/23/22 11:55 Proposed Procedure Side Surgeon p Knee Total Arthroplasty, OrthAlign, Cementless CR (PS Possible) Right Henry Isbell MD Meds Allergies and Home Medications Allergies Allergy/AdvReac Type Severity Reaction Status Date / Time Sulfa (Sulfonamide Allergy Other (See Unverified 08/23/22 08:43 Antibiotics) Comment) honey bees Allergy Severe Anaphylaxis Uncoded 08/23/22 08:43 Home Medication Medication Instructions Recorded pantoprazole 40 mg tablet,delayed 40 mg PO BID@729,1999 #60 tabs 03/18/20 release albuterol sulfate 90 mcg/actuation 2 puff inhalation QID PRN 07/14/20 aerosol inhaler aspirin 81 mg tablet,delayed 81 mg PO DAILY 07/14/20 release (Adult Aspirin Regimen) cholecalciferol (vitamin D3) 50 50 mcg PO DAILY 07/14/20 mcg (2,000 unit) capsule clotrimazole 1 % topical cream 1 applic topical BID PRN 07/14/20 (Lotrimin AF (clotrimazole)) epinephrine 0.3 mg/0.3 mL 0.3 mg IM ONCE PRN 07/14/20 injection, auto-injector folic acid 1 mg tablet 1 mg PO DAILY 07/14/20 magnesium chloride 64 mg 128 mg PO BID 07/14/20 (magnesium chloride) tablet,delayed release (Mag 64) sucralfate 1 gram tablet 1 g PO AC & HS PRN 07/14/20 celecoxib 200 mg capsule 200 mg PO BID PRN pain #60 caps 07/11/22 mycophenolate mofetil 500 mg tablet 500 mg PO BID 08/18/22 Current Visit Medications: Current Medications Generic Name Dose Route Start Last Admin Trade Name Freq PRN Reason Stop Dose Admin Acetaminophen 1,000 mg 08/23/22 06:00 08/23/22 08:52 Acetaminophen 500 Mg Tab PO 08/23/22 18:00 1,000 mg PREOP HERACLIO Administration Celecoxib 400 mg 08/23/22 06:00 08/23/22 08:52 Celecoxib 200 Mg Cap PO 08/23/22 18:00 200 mg PREOP HERACLIO Administration Gabapentin 300 mg 08/23/22 06:00 08/23/22 08:53 Gabapentin 300 Mg Cap PO 08/23/22 18:00 300 mg PREOP HERACLIO Administration Hydromorphone HCl 0.5 mg 08/23/22 07:27 Hydromorphone 2 Mg/Ml Syr IVP 09/22/22 07:26 Q2H PRN PRN Tranexamic Acid 1,000 mg/ 60 mls @ 360 mls/hr 08/23/22 06:00 Sodium Chloride IVPB 08/23/22 18:00 PREOP HERACLIO Ringer's Solution 1,000 mls @ 80 mls/hr 08/23/22 06:00 IV 09/18/22 23:59 INFUSION HERACLIO Cefazolin Sodium/Dextrose 2 gm in 50 mls @ 100 mls/hr 08/23/22 06:00 Ancef Duplex IVPB 08/23/22 16:00 PREOP HERACLIO Cefazolin Sodium/Dextrose 1 gm in 50 mls @ 100 mls/hr 08/23/22 08:00 Ancef Duplex IVPB 09/22/22 07:59 Q8H HERACLIO IV Miscellaneous Supplies 1 each 08/23/22 06:00 Iv Access IV 09/18/22 23:59 DIRECTED HERACLIO Ondansetron HCl 4 mg 08/23/22 07:27 Ondansetron 4 Mg/2 Ml Vial IVP 09/22/22 07:26 Q6H PRN PRN Nausea Oxycodone HCl 0 mg 08/23/22 07:27 Oxycodone 5 Mg Tab PO 09/22/22 07:26 Q3H PRN PRN Pain Sodium Chloride 0 ml 08/23/22 06:00 Normal Saline Flush 10 Ml Syr IV 09/18/22 23:59 PRN PRN Sodium Chloride 0 ml 08/23/22 06:00 Normal Saline 10 Ml Vial IJ 09/18/22 23:59 DIRECTED PRN Sterile Water 0 ml 08/23/22 06:00 Water,Injection,Sterile 10 Ml Vial IJ 09/18/22 23:59 DIRECTED PRN PFSH Active Problems Active Problems: Problem Status Onset Code Primary osteoarthritis of right knee M17.11 Anemia due to acute blood loss D62 Multiple gastric polyps K31.7 Esophagitis K20.90 Hypomagnesemia E83.42 Nonsustained paroxysmal supraventricular tachycardia I47.1 Multiple gastric polyps ~03/16/20 K31.7 Discharge planning issues Z02.9 DVT prophylaxis Z29.9 H/O: CVA (cerebrovascular accident) Z86.73 Weight loss, non-intentional R63.4 Dysphagia R13.10 Upper gastrointestinal bleeding K92.2 Medical History Medical History Dislocation of right shoulder joint >35 years ago Reduced in ER History of breast cancer (~2011) Treated with left breast lumpectomy and sentinel lymph node biopsies and subsequent radiation and chemotherapy; [facility]up through [facility] History of stroke >30 years ago; denies residual issues Surgical History Surgical History S/P breast lumpectomy (~2011) Status post laparotomy Performed for evaluation of possible ectopic but none found Tobacco Smoking/Tobacco Use Status: Never Alcohol Alcohol Intake: current Alcohol intake frequency: 0-2 drinks per day Alcohol type: beer and wine Substance Use Substance use type: does not use Prental History History 0 Para Hx # Term Pregnancies Multiple births Hx # Pregnancies Ectopic pregnancies AB induced Hx Number of Living Children AB spontaneous Vital Signs and Lab Results Vital Signs Most Recent Vital Signs in EMR: Most Recent Vital Signs Temp Pulse Resp BP Pulse Ox 36.6 C 74 18 140/67 98 08/23/22 08:30 08/23/22 08:30 08/23/22 08:30 08/23/22 08:30 08/23/22 08:30 Lab Results Blood Type / Crossmatch: No Data to Display Complete Blood Count: White Blood Count 11.02 10^3/uL (4.4-10.8) H 08/18/22 12:10 Red Blood Count 4.41 10^6/uL (3.93-5.22) 08/18/22 12:10 Hemoglobin 13.7 g/dL (11.2-15.7) 08/18/22 12:10 Hematocrit 41.2 % (36.0-46.0) 08/18/22 12:10 Platelet Count 257 10^3/uL (130-400) 08/18/22 12:10 Complete Metabolic Panel: Sodium 137 mmol/L (136-145) 08/18/22 12:10 Potassium 3.9 mmol/L (3.5-5.1) 08/18/22 12:10 Chloride 104 mmol/L (98-107) 08/18/22 12:10 Carbon Dioxide 23.5 mmol/L (21.0-32.0) 08/18/22 12:10 BUN 15 mg/dL (7-18) 08/18/22 12:10 Creatinine 0.7 mg/dL (0.55-1.02) 08/18/22 12:10 Est GFR (CKD-EPI 2020) 90.14 (mL/min/1.73m2) 08/18/22 12:10 Calcium 9.4 mg/dL (8.5-10.1) 08/18/22 12:10 Glucose 109 mg/dL (74-106) H 08/18/22 12:10 Liver Function Panel: No Data to Display Coagulation Panel: No Data to Display Cardiac Panel: No Data to Display Arterial Blood Gas: No Data to Display Venous Blood Gas: No Data to Display Pancreas Panel: No Data to Display Thyroid Panel: No Data to Display Infectious Disease: No Data to Display Blood Cultures: No Data to Display Toxicology Panel: No Data to Display Imaging and Studies Imaging and Studies Study information below may be from another EMR and interpreted by another provider. Please see original notes in EMR for more complete details. EKG Summary: DATE/TIME OF SERVICE: 07/14/20806 : 1945[facility] Exam: Resting ECG Patient Location: O HR:68 bpm ECG Measurements Heart Rate 68 AXIS AZ 142 P 30 QRSd 80 QRS -24 QT 406 T-3 QTc 432 Conclusion Sinus rhythm...normal P axis, V-rate 50- 99 Atrial premature complex... low voltage Echocardiogram Summary: Date of study: 01/31/2018 Transthoracic Echocardiography M-mode, complete 2D, complete spectral Doppler, and color Doppler *STUDY CONCLUSIONS* Summary: 1. Left ventricle: The cavity size was normal. Wall thickness was normal. Systolic function was normal. The estimated ejection fraction was 60-65%. Wall motion was normal; there were no regional wall motion abnormalities. Some parameters suggest diastolic dysfunction. 2. Left atrium: The atrium was mildly dilated. 3. Right ventricle: The cavity size was normal. Wall thickness was normal. Systolic function was normal. Anesthesia Assessment and Plan Anesthesia History Personal History: No History of Anesthesia Complications Family History: No Family History of Anesthesia Complications Exercise Tolerance Exercise Tolerance: Metabolic Equivalents>4 Pertinent Negatives Pertinent Negatives: No Major Cardiovascular Symptoms or Complaints, No Major Pulmonary Symptoms or Complaints and Other (Stroke approx 30 yrs ago, no residual) Cardiac & Pulmonary Exam Cardiac Exam: Normal S1/S2 Heart Sounds Pulmonary Exam: Clear Bilateral Breath Sounds Implantable Cardiac Device Does patient have a Pacemaker or an ICD?: No Airway Exam Known Difficult Airway: No Mallampati Class: 2 Mouth Opening: Normal (> 3cm) Thyromental Distance: Less than 3 cm Neck Range of Motion: Full ROM Neck Circumference: Normal Teeth Condition: Normal Dentition ASA Classification ASA Score: ASA 3 Emergency Case?: No NPO Status NPO Status: NPO Clears >2 hours, Solids >8 hours Anesthesia Plan Resuscitation Status: Full Code Anesthesia Technique: Spinal Anesthesia Airway Planned: Natural Airway Pain Management: Surgeon and patient request nerve block Monitors Used: Standard Monitors Preoperative Comments:: Decreased vision secondary to chemo
[2022-08-23] MEDS: Lactated Ringers 1,000 ML 80 ML IV (10:12)
--- NOTE | 2022-08-23 10:20 | W.ANESVAS ---
Midline Placement Date Performed: 08/23/22 Procedure Time: 10:05 Requesting Provider: Simone Lucia Procedure Location: Day Surgery Unit Sedation Given (Indicate Dose Given): No Sedation given Patient Mental Status: Awake Sterility: Hand Hygiene, Surgical Cap, Sterile Gloves and Chlorhexidine Laterality: Right Insertion Site: Basilic Midline Device: PowerGlide Pro 20G Catheter Length: 10 cm Midline Procedure Procedure: Vessel accessed with catheter over needle, Guidewire placed with ease, Catheter placed without resistance and Guidewire removed Dressing: Tegaderm Applied and Statlock Applied Blood Return: Present Flushes: Easily Ultrasound: Sterile probe cover and gel used Ultrasound Image Saved?: Yes Number of Attempts (See previous attempts in note section): 1 Procedure Tolerated: No Complications and Patient tolerated well Procedure Outcome: Successful Procedure Comment:: Multiple IV attempts (5-6) by DSU. Difficult Access and IV seem to infiltrate after IV fluid started. Performed By: Simone Lucia
[2022-08-23] MEDS: ceFAZolin 2 GM/50 ML BAG IVPB (10:38)
--- NOTE | 2022-08-23 11:07 | W.ANESNERVE ---
Nerve Block Single Injection Procedure Date and Time Date Performed: 08/23/22 Procedure Start: : Location Where Procedure Performed Procedure Location: Day Surgery Unit Reason Performed: Postoperative Analgesia Requesting Provider: Henry Isbell Timeout Performed Timeout Performed: Yes Monitoring Used ECG, Blood Pressure, SpO2 and See EMR for corresponding vital signs Sterility Sterility: Hand Hygiene, Surgical Cap, Surgical Mask, Sterile Gloves, Sterile Drape/Sheet and Chlorhexidine Sedation Given During Procedure Sedation Given (Indicate Dose Given): No Sedation given Patient Mental Status Patient Mental Status: Awake Nerve Block 1st Nerve Block: Laterality: Right Block Type: Adductor Canal Ultrasound Image Saved?: Yes Needle / Catheter Used: 100mm SonoPlex II Local Anesthetic Bolus (Indicate Dose Given): Lidocaine used for local infiltration of skin, Injected in 3-5ml increments after negative blood aspiration and Bupivacaine 0.25% Dose:: 10 ml Additives (Indicate Dose Given): None Ultrasound: Sterile probe cover and gel used Nerve Stimulator: Not Used Paresthesia: None Procedure Tolerated: No Complications and Patient tolerated well Procedure Outcome: Successful Performed By: Tanvi Austin
--- NOTE | 2022-08-23 14:05 | W.ANESPOSTOP ---
Postoperative Evaluation Date, Time and Location Date Performed: 08/23/22 Time Performed: 14:05 Patient Location: Day Surgery Unit Vital Signs Most Recent Imported Vital Signs: Most Recent Vital Signs Temp Pulse Resp BP Pulse Ox 36.2 C L 71 16 112/56 L 96 08/23/22 13:56 08/23/22 13:56 08/23/22 13:56 08/23/22 13:56 08/23/22 13:56 Pain Score Most Recent Pain Score: Most Recent Pain Score Pain Level 0 08/23/22 13:56 Assessment Mental Status: Awake (Alert & Oriented to Patient Baseline) Airway and Respiratory Function: Patent airway with normal (patient baseline) respiratory exam Cardiovascular Function: Hemodynamically Stable Hydration Status: Adequately Hydrated Nausea & Vomiting: No Nausea or Vomiting Pain: Pt. Denies Any Pain Peripheral Nerve Block: Regional nerve block not resolved at time of post operative discharge
--- NOTE | 2022-08-23 14:23 | SUR.PHASEII ---
Addendum entered by Latonya Griffin RN 08/23/22 14:24: Pt sitting in chair eating and drinking/ tolerating well. Original Note: Pt did well with physical therapy, went to the bathroom and urinated.
--- NOTE | 2022-08-23 15:23 | DSE_ITS ---
Date of service: 08/23/22 Time of Service: 15:25 DS: Diagnosis Discharge Diagnosis (1) Primary osteoarthritis of right knee: Status: Chronic Discharge Plan Disposition Patient Disposition: Home Condition: Good Discharge Details Reason For Visit: Right Knee Arthritis Attending Provider: Henry Isbell Primary Care Provider: Laura Ortiz Home Meds and New Rx's Prescriptions: New acetaminophen 500 mg tablet 1,000 mg PO Q8H PRN (Reason: pain) Qty: 90 3RF aspirin 81 mg tablet,delayed release (DR/EC) 81 mg PO BID Qty: 60 0RF tramadol 50 mg tablet 50 mg PO Q4H PRNQty: 18 0RF dexamethasone 4 mg tablet 4 mg PO DAILY Qty: 2 0RF Rx Instructions: Starting Post-Operative Day #1 (Day after surgery) gabapentin 300 mg capsule 300 mg PO QHS Qty: 14 0RF Continued mycophenolate mofetil 500 mg tablet 500 mg PO BID clotrimazole [Lotrimin AF (clotrimazole)] 1 % cream 1 applic topical BID PRN sucralfate 1 gram tablet 1 g PO AC & HS PRN Patient Comments: has not taken in a long time Rx Instructions: dissolve into slurry Mag 64 64 mg tablet,delayed release (DR/EC) 128 mg PO BID cholecalciferol (vitamin D3) 50 mcg (2,000 unit) capsule 50 mcg PO DAILY folic acid 1 mg tablet 1 mg PO DAILY Patient Comments: does not take albuterol sulfate 90 mcg/actuation HFA aerosol inhaler 2 puff inhalation QID PRN Rx Instructions: 3-4 times daily as needed for cough epinephrine 0.3 mg/0.3 mL auto-injector 0.3 mg IM ONCE PRN Rx Instructions: as a single dose pantoprazole 40 mg Tablet,Delayed Release (Dr/Ec) 40 mg PO BID@07,1999 Qty: 60 0RF celecoxib 200 mg capsule 200 mg PO BID PRN (Reason: pain) Qty: 60 1RF Discontinued aspirin [Adult Aspirin Regimen] 81 mg tablet,delayed release (DR/EC) 81 mg PO DAILY Discharge Instructions Additional Instructions: Total Knee Discharge Instructions Activity: The most important activity is to walk and to work on gentle motion (both flexion and extension). You should try to take short walks a few times a day. It is important that when resting you work on keeping the knee straight. Avoid putting a pillow behind the knee as this will encourage flexion. Work on range of motion exercises as provided by Physical Therapy. - Start outpatient physical therapy within 2 weeks. - You should wear the WARREN hose on both legs for 2 weeks. You may remove these at night. You may also use any compression sock in place of the WARREN hose. - Utilize [employer] to review exercises, see videos on exercises and obtain basic information pertaining to your surgery and your recovery. Dressing: Remove the Jarret wrap by 2 days after your surgery and put on the WARREN stocking given to you from the hospital. Keep the surgical dressing (underneath the JARRET wrap) in place for at least one week. After the first week it may be removed and replaced with light gauze and tape or nothing. The wound and dressing may get wet after 3 days but avoid soaking the dressing or otherwise it will need to be changed. Many people prefer covering the dressing with cling wrap (saran wrap) to minimize it from getting soaked. If it gets wet, just pat dry. If it starts to peel off then it will need to be changed. Medications: - You should take Tylenol and anti-inflammatory Celebrex as your primary pain control medications. If the Celebrex is too expensive or not covered, please call the office for another alternative (Advil/Ibuprofen or Naproxen/Aleve) - You have been prescribed a stronger pain medication Tramadol for breakthrough pain, take as needed as prescribed. - You should continue your stomach acid reduction agent Pantoprozole to help reduce stomach acid and reflux. - You have been prescribed Gabapentin to take at night for restlessness and nerve pain. - You will be taking Aspirin 81mg twice a day for DVT prevention unless instructed otherwise. - You have also been prescribed Decadron to take to control post-operative nausea and pain. You will start this tomorrow. - If you have constipation you should take Colace or Miralax (both [id number]-lvo-[id number]). It takes most people 3-4 days to have a bowel movement. Follow-up: 2 weeks If you have any acute concerns or questions, please do not hesitate to contact the office at [phone]. You may contact Dr. Isbell with any questions after hours through the hospital at [phone] or on his cell phone at [phone]. Stand Alone Forms: Anesthesia Discharge Inst., Anes.Nerve Block Instructions, Reed Massey (DSU) Referrals: Henry Isbell MD [ [facility]FF [facility]YSICIAN] - 09/05/22 1:00 pm Equipment/Supplies: Walker Activity:: Elevate Remove Dressings/Wound Care:: Do Not Remove Shower/Bathe:: 72 hours Diet:: As Tolerated Discharge Orders Discharge Orders: Discharge Order (Routine); Ordered 08/23/22 Ordered By: Henry Isbell DS: Summary Time Spent with Patient providing and/or coordinating discharge services: Less than 30 minutes Status at Discharge Functional status at discharge: uses cane/walker Overall status at discharge: patient is progressing back to baseline Mental Status: mental status grossly normal Speech and Movement: speech and movement normal Mood: congruent mood Affect: normal affect Exam Psych Mental Status: mental status grossly normal Speech and Movement: speech and movement normal Mood: congruent mood Affect: normal affect DS: Data Vitals/I&O Vitals and I&O: Vital Signs Temperature 36.2 C L 08/23/22 13:56 Temperature Source Skin 08/23/22 10:14 Pulse 71 08/23/22 13:56 Pulse Rhythm Regular 08/23/22 08:30 Respiratory Rate 16 08/23/22 13:56 Respiratory Depth Normal 08/23/22 08:30 Blood Pressure 112/56 L 08/23/22 13:56 Blood Pressure Mean 126 08/23/22 10:14 Blood Pressure Position Supine 08/23/22 10:14 Pulse Oximetry 96 08/23/22 13:56 Respiratory End-tidal CO2 26 08/23/22 13:15 Oxygen Delivery Method Room Air 08/23/22 13:56 Oxygen Flow Rate 0 08/23/22 10:14 Pain Level 0 08/23/22 13:56 Intake & Output 08/22/22 08/23/22 08/23/22 23:59 11:59 23:59 Intake Total 110 / 728.667 618.667 / 728.667 Output Total 150 / 150 Balance 110 / 578.667 468.667 / 578.667 Weight 59.058 kg Intake: IV 110 / 728.667 618.667 / 728.667 Output: Estimated Blood Loss 150 / 150 Other: Emesis Description None PFSH All Active Problems Primary osteoarthritis of right knee (Chronic) Steroid injection: 06/10/2022; ~March 2022 Anemia due to acute blood loss (Acute) Multiple gastric polyps (Acute) Esophagitis (Acute) Hypomagnesemia (Acute) Multiple gastric polyps (Acute ~03/16/20) bleeding adn necrotic Discharge planning issues (Acute) DVT prophylaxis (Acute) H/O: CVA (cerebrovascular accident) (Chronic) Weight loss, non-intentional (Acute) Dysphagia (Chronic) Upper gastrointestinal bleeding (Acute) Medical History Dislocation of right shoulder joint >35 years ago Reduced in ER History of breast cancer (~2011) Treated with left breast lumpectomy and sentinel lymph node biopsies and subsequent radiation and chemotherapy; [facility] History of stroke >30 years ago; denies residual issues Surgical History S/P breast lumpectomy (~2011) Status post laparotomy Performed for evaluation of possible ectopic but none found Family History Father No problems noted. Other Colon cancer Social History Smoking/Tobacco Use Status: Never Smoking risk assessment performed?: Yes Alcohol Intake: current Alcohol Intake frequency: 0-2 drinks per day Alcohol type: beer and wine Substance use type: does not use What type of physical activity do you participate in: none Additional Social history: Unable to assess [facility] History History 0 Para Hx # Term Pregnancies Multiple births Hx # Pregnancies Ectopic pregnancies AB induced Hx Number of Living Children AB spontaneous Time Spent with Patient Time Spent with Patient: <45 minutes Time was spent: obtaining and/or reviewing separately otained hiistory, counseling the patient and care coordination
--- NOTE | 2022-08-23 16:33 | ROE_ITS ---
Date of service: 08/23/22 Time of Service: 12:30 Operative Note Operative Note DATE OF PROCEDURE: 08/23/22 PRE-OP DIAGNOSIS: Right Knee Osteoarthritis POST-OP DIAGNOSIS: same PROCEDURE: Right Total Knee Replacement with Intraoperative Navigation SURGEON: Henry Isbell NEEDLE LOOM SETTER: Jackie Gonsalez ANESTHESIA TYPE: Spinal Refer to Anesthesia Record ESTIMATED BLOOD LOSS: 150 PATHOLOGY: none sent TOURNIQUET TIME: 0 COMPLICATIONS: Other (Upon femoral component impaction there was a shell of medial femoral cortex which hinged open. There was no proximal extension and it was not totally unstable. A single 4.5mm screw with washer was placed to secure it and the knee was tested in multiple positions without fracture or ligament insta) Patient was transported to: PACU Patient's condition: stable Implants: 1. Depuy Attune Cementless Cruciate Retaining Femoral Component, Size 4 Narrow 2. Depuy Attune Cementless Fixed Bearing Tibial Component, Size 4 3. Depuy Attune 4x10 CR/FB Poly 4. Depuy Attune Patellar Component, Size 32 Indications: I have seen Desirae in clinic for symptoms of RIGHT knee arthritis, confirmed with radiographic findings. Desirae has exhausted nonoperative methods and was having significant limitations in daily function and desired better function and less pain. She also was having progressive pain and deformity. I discussed the technical details of a knee replacement. I explained the risks of the procedure to include, but not limited to, bleeding, infection, pain, stiffness, fracture, damage to nerves and vessels, damage to muscles and tendons, loosening, need for repeat procedure, blood clot and cardiopulmonary demise. Despite these risks, [NAME] elected to proceed. Findings: There was significant signs of arthritis throughout the knee, particularly of the medial aspect with notable deformity of the medial tibia and femur. Procedure Description: Desirae was greeted in the preoperative holding area where the correct side was identified and marked. The consent was reviewed with the patient and signed. The history and physical was updated. All questions were answered. Preoperative mediacations were administered: Acetaminophen 1000mg, Celebrex 400mg, and Gabapentin 300mg. An adductor canal block was then administered by the anesthesia team in the PACU. Desirae was taken back to the operating room. A spinal anesthestic was then administered. The patient was placed into the supine position on the operating room table. A nonsterile tourniquet was placed high onto the leg. Posts were placed for positioning during the procedure. All bony prominences were well padded. Prophylactic antibiotics in the form of Cefazolin were administered. 1g of Tranxemic Acid was given intravenously within 30 minutes of incision. The right leg was then prepped with Chloraprep and draped in a standard fashion with impervious stockinette. A second prep with Chloraprep was performed prior to application of Iodine impregnated skin protection. A timeout to confirm correct identity, side and site, procedure, allergies, anesthesia, and medical concerns was performed. With the knee in some flexion, a midline incision was made overlying the knee. Full thickness skin flaps were raised once the extensor mechanism was encountered. These were raised medially and laterally. Any bleeding was controlled with electrocautery. Once the extensor mechanism was fully exposed, a medial parapatellar arthrotomy was performed in a flexed position. All bleeding from the arthrotomy and the geniculate arteries was coagulated. A medial subperiosteal peel was performed with electrocautery to the midcoronal plane. Due to the significant varus deformity the entire medial tibial plateau was exposed. The fat pad was removed while keeping the patellar tendon protected. The anterior distal femur synovium was removed for later visualization. The ACL and PCL were resected and the anterior horn of the lateral meniscus was transected. The knee was then flexed with the patella everted. Large osteophytes from the tibia were removed. Large osteophytes from the femur were removed. A single starting pin was then placed 1cm anterior to the PCL insertion and the notch in the direction of the femoral head. The OrthoAlign device was applied over the pin. It was oriented to be in line with the epicondylar axis and the trochlear groove. It was then pinned into place. The navigation computer was then turned on and calibrated. The distal femur cut was set at 0 degrees varus/valgus and 3 degrees flexion. The distal femur cutting guide then was positioned for a 9mm cut. The distal femur was cut with an oscillating saw while protecting the soft tissues. The tibia was then addressed. The OrthoAlign device was placed over the tibial tubercle and medial tibia and secured into position. Once again, OrthoAlign was calibrated and then set for a 2 degrees varus cut and 5 degrees of posterior slope. With this locked into position, the cut thickness stylus was used to assess cut thickness. The medial side, most involved side, was set for a 4mm cut. This was then held in position and pinned into place with 2 additional pins and a cross pin for stability. The medial and lateral collateral ligaments were protected and the cut was performed. With this completed, it was assessed and noted to be of appropriate dimensions. The guide and OrthoAlign was removed. A spacer block was inserted and the knee was brought into extension to ensure enough space was present. The femur was then sized as a size 4 narrow. The Orthoalign gap balancing device was then placed in extension. This was used to ensure that the ligaments were properly balanced with up to 2 to 3 mm laxity laterally compared medially. The extension gap was measured as 20mm. The knee was then brought into 90 degrees of flexion and the ligament city carrier assistant was once again placed. Under the same amount of force the flexion gap was measured. The Attune specific jig was placed and the flexion gap was made to match the extension gap. The 4-in-1 cutting guide was the placed. An susana wing was used to confirm appropriate position of the anterior cut to avoid notching. This cutting guide was ensured to be flush on the cut surface and then pinned into place with headed pins. While protecting the soft tissues, quad tendon, and collateral ligaments, the anterior and posterior cuts were performed with a saw. The central two pins were removed and the posterior and anterior chamfers were cut next. The notch-cutting guide was placed. This was pinned to lateralize the femoral component as much as possible while keeping it flush on the cut surface. This was then pinned into position. A saw was used to make the notch cut. A rasp smoothed the cut surfaces. The medial and lateral menisci were removed. A trial femoral component was then inserted, impacted down to the cut surfaces, and the lug holes were drilled. A provisional trial tibial component was placed and the knee was brought through range of motion. There was noted to be excellent extension and flexion. There was no significant instability. The polyethylene was trialed until there was good flexion and extension with excellent stability to the medial and lateral collaterals. The patella was tracking without thumbs. A size 10mm polyethylene component provided the best range of motion and stability with less than 2mm gapping with medial and lateral stress and full extension without significant hyperextension. The tibial cut surface was fully exposed. The tibia was then sized as a 4. The tibia had been previously marked during trialing to correspond to the center of the tibial component to help with rotation. The trial was aligned to this katelyn, approximately rotated to the medial 1/3rd of the tibial tubercle. The trial was pinned into place. The tibia was prepared with a reamer and a keel punch and lug holes. The knee was then brought into extension and the patella was measured as 22mm. Using the patellar clamp and cut guide, this was resected to a flat surface with at least 13mm of thickness remaining. The size 32mm patella fit the best. This was oriented and then clamped into position. The lugs were drilled. The trial components were removed. The final components were opened on the back table. The periosteal and capsular tissues, especially posteriorly, around the knee were then systematically injected with a periarticular cocktail consisting of 246mg of Ropivacaine, 0.5mg of Epinephrine, 0.08mg of Clonidine, and 30mg of Ketorolac, diluted to 100cc. On the back table, with the implants opened, the cement was mixed. One batch of high viscosity cement was prepared with vacuum assistance. After the cement was ready a small amount was placed on the cut surface of the patella and the patellar button was clamped into position and held. While the cement was hardening, the cementless knee components were placed. Starting with the tibial component, the tibia was subluxed anteriorly and the lug holes of the component were lined up. The tibia was then impacted with an impactor and mallet until the tibial component was in contact with the tibia. The 4 x 10 mm polyethylene was then inserted. Then, the femoral component was inserted. The lug holes were aligned and the component was impacted into position. After completion of the impaction of the femoral component there was noted to be widening of the medial edge of the distal femur. On further inspection the cortex of the medial aspect of the femur had hinged open, anchored proximally. I was able to displace it medially but was unable to displace the actual bony fragment. It was hinged proximally. MCL attachment was to this piece of bone. Dissection was carried proximally and they show to be no extension proximally into the proximal?medial femur. I was unable to move the fracture in any direction anterior or posterior. It seemed that the medial cancellous bone was somewhat soft and on impaction likely impacted and displacing the medial cortical bone. After testing this multiple additions as well as stress testing the ligaments without displacement, I elected to secure this bony shelf with a single 4.5 millimeter screw. This is a cannulated screw with the direction taken from a distal position to a slightly more proximal position just distal to the MCL insertion on the medial condyle. A 4.5mm screw was placed with a washer. Once again, this was tested in extension and in flexion and showed no displacement. I was also not able to be manually displaced. The knee was irrigated with Surgiphor Betadine solution. This was allowed to sit in the knee for 3 minutes and then it was thoroughly irrigated out with saline. After the cement had finally cured, approximately 15min, the clamp was removed from the patella and the knee was taken through range of motion. The patella was tracking with a no-thumbs technique. The capsule was then reapproximated with a No. 1 Vicryl at multiple locations. The capsule was finally closed with a No. 2 Stratafix, barbed suture. Deep tissues were then reapproximated with 0 Vicryl and 2-0 Vicryl. The skin was closed with a running 3-0 Monocryl in a subcuticular fashion. This was reinforced with skin glue. A Mepilex silver dressing was applied along with a [id number] ROSELINE wrap. A CryoCuff was applied. Desirae was transferred to the hospital bed without difficulty an suffering no apparent complication. Desirae has a gaurded prognosis due to the unusual displacement of the medial femur. This appears stable and shouldn't have any change to postop recovery but will be followed closely. X-ray in the PACU. Physical therapy will start today and without restrictions, weight-bearing as tolerated. Aspirin 81mg BID will be used for DVT prophylaxis.
== END 2022-08-23 16:00 | disposition home or self-care (01) ==
PROVIDERS: PCP Family Medicine; Visit Provider Student in an Organized Health Care Education/Training Program
PROC: (CPT 27447; principal; 2022-08-23 11:45)
DX: M17.11 Unilateral primary osteoarthritis, right knee (principal); I47.1 Supraventricular tachycardia; Z85.3 Personal history of malignant neoplasm of breast
CPT/HCPCS: 20985; 27447; C1776; 76942; 73560; J0690; J1100; J2001; J2250; J2405

== ENCOUNTER 2022-09-05 12:55 | Outpatient (CLI) | payer MEDICARE, SELFPAY ==
--- NOTE | 2022-09-05 12:30 | DI.RAD_ITS ---
Exam(s) XR KNEE RT 1V EXAM: XR KNEE RT 1V CLINICAL HISTORY: 1ST POST OP R TKA. TECHNIQUE: 2D digital imaging was performed. COMPARISON: CR XR KNEE RT 2V AP,LAT from 08/23/2022 FINDINGS: 3 views Addition alignment of components of prosthesis. No fractures nor loosening evident. IMPRESSION: Satisfactory appearance. DATA REPOSITORY: RADIATION DOSE DELIVERED:
--- NOTE | 2022-09-05 12:30 | DI.RAD_ITS ---
Exam(s) XR STANDING ALIGNMENT EXAM: XR STANDING ALIGNMENT CLINICAL HISTORY: 1ST POST OP R TKA. TECHNIQUE: 2D digital imaging was performed. COMPARISON: CR XR STANDING ALIGNMENT from 08/18/2022 FINDINGS: 3 views There has been interval placement of a right knee prosthesis which appears satisfactory. The opposit e-left knee exhibits mild degenerative changes in the lateral compartment. Ankles unremarkable. Hip s unremarkable although there is bony excrescence off the lateral right iliac bone again noted. IMPRESSION: As above. DATA REPOSITORY: RADIATION DOSE DELIVERED:
== END 2022-09-05 12:56 | disposition home or self-care (01) ==
LOC: DIORS 12:55
PROVIDERS: PCP Family Medicine; Referring Provider Family Medicine; Visit Provider Physician Assistant
DX: Z96.651 Presence of right artificial knee joint (principal); Z47.1 Aftercare following joint replacement surgery
CPT/HCPCS: 73560; 77073

== ENCOUNTER → 2022-10-10 09:22 | Outpatient (BNVA) | payer MEDICARE, SELFPAY | PROVIDERS: PCP Family Medicine; Referring Provider Family Medicine; Visit Provider Student in an Organized Health Care Education/Training Program | DX: Z47.1 Aftercare following joint replacement surgery (principal); Z96.651 Presence of right artificial knee joint ==

== ENCOUNTER 2023-05-29 14:09 | Outpatient (REF) | payer MEDICARE, SELFPAY ==
[2023-05-29 19:19] LABS: ALT 22 U/L (14-59); AST 21 U/L (15-37); Albumin 3.5 g/dL (3.4-5.0); Alkaline Phosphatase 93 U/L (46-116); Anion Gap 12.1 mmol/L (3-11); BUN 10 mg/dL (7-18); Bilirubin, Total 0.6 mg/dL (0.2-1.0); CO2 25.9 mmol/L (21.0-32.0); CREATININE 0.7 mg/dL (0.55-1.02); Chloride 103 mmol/L (98-107); Estimated GFR 90.14 (mL/min/1.73m2); Glucose 75 mg/dL (74-106); Magnesium 1.3 mg/dL (1.8-2.4); Potassium 3.7 mmol/L (3.5-5.1); Sodium 141 mmol/L (136-145); Total Protein 6.7 g/dL (6.4-8.2)
[2023-05-29 20:02] LABS: Vitamin D 25 Total 42.6 ng/mL (30-100)
== END 2023-05-29 14:10 | disposition home or self-care (01) ==
LOC: NCHCN 14:09
PROVIDERS: PCP Family Medicine; Visit Provider Student in an Organized Health Care Education/Training Program
DX: E55.9 Vitamin D deficiency, unspecified (principal)
CPT/HCPCS: 80053; 82306; 83735

== ENCOUNTER 2023-08-25 10:05 | Outpatient (CLI) | payer MEDICARE, SELFPAY ==
--- NOTE | 2023-08-25 09:45 | DI.RAD_ITS ---
Exam(s) XR KNEE RT 2V AP,LAT EXAM: XR KNEE RT 2V AP,LAT CLINICAL HISTORY: F/U RIGHT TKR. TECHNIQUE: 2D digital imaging was performed. Three views. COMPARISON: CR XR KNEE RT 1V from 09/05/2022 FINDINGS: BONES: No acute fracture is present. No bony destructive lesion is seen. There has been no change in the alignment of the total knee prosthesis. JOINTS: The knee is normally aligned. No joint effusion is seen. SOFT TISSUE: Normal. IMPRESSION: Stable appearance of total knee prosthesis. DATA REPOSITORY: RADIATION DOSE DELIVERED:
== END 2023-08-25 10:06 | disposition home or self-care (01) ==
LOC: DIORS 10:05
PROVIDERS: PCP Student in an Organized Health Care Education/Training Program; Referring Provider Student in an Organized Health Care Education/Training Program
DX: Z47.1 Aftercare following joint replacement surgery (principal); Z96.651 Presence of right artificial knee joint
CPT/HCPCS: 99213; 73560

== ENCOUNTER 2024-02-27 11:48 | Outpatient (REF) | payer MEDICARE, SELFPAY ==
[2024-02-27 15:58] LABS: Abs Immature Grans 0.02 10^3/uL (0.0-0.06); Absolute Basophil Count 0.05 10^3/uL (0.0-0.2); Absolute Eosinophil Count 0.08 10^3/uL (0.0-0.7); Absolute Lymphocyte Count 1.52 10^3/uL (1.2-3.4); Absolute Monocyte Count 0.75 10^3/uL (0.1-0.8); Absolute Neutrophil Count 5.02 10^3/uL (1.2-6.7); Basophils % 0.7 %; Eosinophils % 1.1 %; HCT 44.2 % (36.0-46.0); HGB 14.2 g/dL (11.2-15.7); Immature Grans % 0.3 %; Lymphocytes % 20.4 %; MCH 31.8 pg (27.0-33.0); MCHC 32.1 % (32.0-36.0); MCV 99 fL (80-95); MPV 10.9 fL (8.0-11.0); Monocytes % 10.1 %; Neutrophils % 67.4 %; Platelet Count 230 10^3/uL (130-400); RBC 4.47 10^6/uL (3.93-5.22); RDW 12.6 % (11.7-14.6); RDW-SD 45.9 fL; WBC 7.44 10^3/uL (4.4-10.8)
[2024-02-27 16:09] LABS: Uric Acid 5.4 mg/dL (2.6-6.0)
== END 2024-02-27 11:49 | disposition home or self-care (01) ==
LOC: NCHCN 11:48
PROVIDERS: PCP Student in an Organized Health Care Education/Training Program; Visit Provider Student in an Organized Health Care Education/Training Program
DX: M79.671 Pain in right foot (principal)
CPT/HCPCS: 84550; 85025

== ENCOUNTER 2024-03-22 12:11 | Outpatient (CLI) | payer MEDICARE, SELFPAY ==
[2024-03-22 12:50] LABS: Uric Acid 5.5 mg/dL (2.6-6.0)
[2024-03-22 16:35] LABS: Abs Immature Grans 0.02 10^3/uL (0.0-0.06); Absolute Basophil Count 0.03 10^3/uL (0.0-0.2); Absolute Eosinophil Count 0.11 10^3/uL (0.0-0.7); Absolute Lymphocyte Count 1.47 10^3/uL (1.2-3.4); Absolute Monocyte Count 0.66 10^3/uL (0.1-0.8); Absolute Neutrophil Count 3.66 10^3/uL (1.2-6.7); Basophils % 0.5 %; Eosinophils % 1.8 %; HCT 43.3 % (36.0-46.0); HGB 14.1 g/dL (11.2-15.7); Immature Grans % 0.3 %; Lymphocytes % 24.7 %; MCH 32.2 pg (27.0-33.0); MCHC 32.6 % (32.0-36.0); MCV 99 fL (80-95); MPV 10.7 fL (8.0-11.0); Monocytes % 11.1 %; Neutrophils % 61.6 %; Platelet Count 203 10^3/uL (130-400); RBC 4.38 10^6/uL (3.93-5.22); RDW 12.6 % (11.7-14.6); RDW-SD 45.4 fL; WBC 5.95 10^3/uL (4.4-10.8)
== END 2024-03-22 12:12 | disposition home or self-care (01) ==
LOC: LBO 12:12
PROVIDERS: PCP Student in an Organized Health Care Education/Training Program; Visit Provider Student in an Organized Health Care Education/Training Program
DX: M79.671 Pain in right foot (principal)
CPT/HCPCS: 36415; 84550; 85025

== ENCOUNTER 2024-03-22 14:47 | Outpatient (CLI) | payer MEDICARE, SELFPAY ==
--- NOTE | 2024-03-22 12:04 | DI.RAD_ITS ---
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 TECHNIQUE: 2D digital imaging was performed. Three views. COMPARISON: No exams were available for comparison FINDINGS: BONES: No acute fracture is present. No bony destructive lesion is seen. JOINTS: No dislocation present. Degenerative changes at the tarsal metatarsal joints and 1st MTP tre nt. SOFT TISSUE: Normal. No foreign body IMPRESSION: No evidence of foreign body. DATA REPOSITORY: RADIATION DOSE DELIVERED:
== END 2024-03-22 15:07 ==
LOC: DI 14:47
PROVIDERS: PCP Student in an Organized Health Care Education/Training Program; Visit Provider Student in an Organized Health Care Education/Training Program
DX: M79.671 Pain in right foot (principal)
CPT/HCPCS: 73630

== ENCOUNTER 2024-05-30 01:53 | Outpatient (CLI) | payer MEDICARE, SELFPAY ==
--- NOTE | 2024-05-30 07:45 | DI.RAD_ITS ---
Exam(s) XR FOOT RT COMPLETE EXAM: XR FOOT RT COMPLETE CLINICAL HISTORY: Right foot pain,m79.671. TECHNIQUE: 2D digital imaging was performed. Three views. COMPARISON: CR XR FOOT RT COMPLETE from 03/22/2024 FINDINGS: BONES: No acute fracture is present. No bony destructive lesion is seen. JOINTS: No dislocation present. Mild degenerative changes at the tarsal metatarsal joints and 1st MT P joint. SOFT TISSUE: Normal. IMPRESSION: Mild degenerative changes. No acute abnormality. DATA REPOSITORY: RADIATION DOSE DELIVERED:
== END 2024-05-30 02:13 ==
LOC: DI 01:53
PROVIDERS: PCP Student in an Organized Health Care Education/Training Program; Visit Provider Podiatrist
DX: M79.671 Pain in right foot (principal)
CPT/HCPCS: 20600; 29540; 73630

== ENCOUNTER → 2024-07-10 11:28 | Outpatient (BNVA) | payer MEDICARE, SELFPAY | PROVIDERS: PCP Student in an Organized Health Care Education/Training Program; Referring Provider Student in an Organized Health Care Education/Training Program; Visit Provider Podiatrist | DX: M77.41 Metatarsalgia, right foot; M77.8 Other enthesopathies, not elsewhere classified; M67.01 Short Achilles tendon (acquired), right ankle; H54.7 Unspecified visual loss | CPT/HCPCS: 99213 ==

== ENCOUNTER 2024-08-30 11:20 | Outpatient (CLI) | payer MEDICARE, SELFPAY ==
--- NOTE | 2024-08-30 09:00 | DI.RAD_ITS ---
Exam(s) XR KNEE RT 2V AP,LAT EXAM: XR KNEE RT 2V AP,LAT CLINICAL HISTORY: ANNUAL F/U R TKA. TECHNIQUE: 2D digital imaging was performed. Two images were obtained. AP and lateral views were ob tained. COMPARISON: CR XR KNEE RT 2V AP,LAT from 08/25/2023 FINDINGS: BONES: There are stable post operative changes of a right total knee arthroplasty present. No fractu re or dislocation. JOINTS: The orthopedic hardware is in good position. No evidence of hardware loosening. SOFT TISSUE: Normal. IMPRESSION: Stable right total knee arthroplasty. DATA REPOSITORY: RADIATION DOSE DELIVERED:
== END 2024-08-30 11:21 | disposition home or self-care (01) ==
LOC: DIORS 11:21
PROVIDERS: PCP Student in an Organized Health Care Education/Training Program; Visit Provider Physician Assistant
DX: Z96.651 Presence of right artificial knee joint (principal); Z47.1 Aftercare following joint replacement surgery
CPT/HCPCS: 99213; 73560

== ENCOUNTER 2024-10-17 21:58 | Inpatient (IN) | payer MEDICARE, SELFPAY ==
[2024-10-17] VITALS (17 sets, daily range): BP systolic 134–198; BP diastolic 84–124; PULSE 73–99; RESP 13–27; TEMP 36.6; O2SAT 94–100
--- NOTE | 2024-10-17 22:00 | RT.EKG_ITS ---
APPROVED REPORT Exam: Resting ECG Reason for Exam: Chest Pain Patient Location: E HR:74 bpm ECG Measurements Heart Rate 74 AXIS TX 133 P 35 QRSd 98 QRS -52 QT 411 T 27 QTc 456 Conclusion Sinus rhythm...normal P axis, V-rate 60- 99 Left anterior fascicular block...axis(240,-40), init forces inf Left ventricular hypertrophy...multiple voltage criteria Physician: no stemi
[2024-10-17 22:25] LABS: Abs Immature Grans 0.03 10^3/uL (0.0-0.06); HCT 43.2 % (36.0-46.0); HGB 14.5 g/dL (11.2-15.7); Immature Grans % 0.3 %; MCH 31.2 pg (27.0-33.0); MCHC 33.6 % (32.0-36.0); MCV 93 fL (80-95); MPV 9.8 fL (8.0-11.0); Platelet Count 224 10^3/uL (130-400); RBC 4.65 10^6/uL (3.93-5.22); RDW 13.0 % (11.7-14.6); RDW-SD 44.4 fL; WBC 9.47 10^3/uL (4.4-10.8)
[2024-10-17 22:39] LABS: INR 1.1 (0.9-1.1); PTT Activated 23.9 sec (20.6-30.2); Prothrombin Time 10.9 sec (9.1-11.1)
[2024-10-17 22:49] LABS: ALT 28 U/L (14-59); AST 29 U/L (15-37); Albumin 3.9 g/dL (3.4-5.0); Alkaline Phosphatase 160 U/L (46-116); Anion Gap 12.5 mmol/L (3-11); BUN 11 mg/dL (7-18); Bilirubin, Total 0.9 mg/dL (0.2-1.0); CO2 25.5 mmol/L (21.0-32.0); Calcium 10.0 mg/dL (8.5-10.1); Chloride 103 mmol/L (98-107); Estimated GFR 92.39 (mL/min/1.73m2); Glucose 102 mg/dL (74-106); Lipase 22 U/L (<78); Potassium 3.2 mmol/L (3.5-5.1); Sodium 141 mmol/L (136-145); Total Protein 7.6 g/dL (6.4-8.2); Troponin I 13 ng/L (<or=51)
[2024-10-17] MEDS: Famotidine 20 MG/2 ML VIAL IVP (22:57)
[2024-10-17] MEDS: MYLANTA 30 ML, LIDOCAINE 2% VISCOUS UD 15 ML PO (22:57)
[2024-10-17] MEDS: Pantoprazole 40 MG VIAL IVP (22:57)
[2024-10-17] MEDS: Sucralfate 1 GM TAB PO (22:58)
--- NOTE | 2024-10-17 23:00 | NUR.NOTE ---
Nursing Note: Pt drank GI cocktail and 1/2 of carafate and then vomitted
--- NOTE | 2024-10-17 23:12 | W.ED.GENAD ---
Discharge Plan Disposition Patient Disposition: Admit to [facility] Condition: Stable Discharge Details Clinical Impression: Acute esophageal obstruction Primary Care Provider: Kleber Rico ED Provider: Adrian Kimball Home Meds and New Rx's Prescriptions: No Action aspirin 81 mg tablet,delayed release (DR/EC) 81 mg PO DAILY atorvastatin 40 mg tablet 40 mg PO DAILY mycophenolate mofetil 500 mg tablet 1,500 mg PO BID colchicine 0.6 mg tablet 0.6 mg PO DAILY cyanocobalamin (vitamin B-12) 1,000 mcg tablet, sublingual 1,000 mcg sublingual DAILY folic acid 1 mg tablet 1 mg PO DAILY pantoprazole 40 mg tablet,delayed release (DR/EC) 40 mg PO DAILY potassium chloride 20 mEq tablet extended release 20 meq PO DAILY vitamin A 2,400 mcg capsule 2,400 mcg PO DAILY pyridoxine (vitamin B6) [Vitamin B-6] 25 mg tablet 25 mg PO DAILY cholecalciferol (vitamin D3) 50 mcg (2,000 unit) capsule 50 mcg PO DAILY epinephrine 0.3 mg/0.3 mL auto-injector 0.3 mg IM ONCE PRN Rx Instructions: as a single dose acetaminophen 500 mg tablet 1,000 mg PO Q8H PRN (Reason: pain) Qty: 90 3RF omeprazole 40 mg capsule,delayed release(DR/EC) 40 mg PO DAILY famotidine 20 mg tablet 20 mg PO DAILY Patient Comments: TAKE ONE TABLET BY MOUTH TWICE A DAY FOR HEARTBURN HPI General Date/Time Provider Initiated Documentation: 10/17/24 22:00. HPI Narrative: This is a 79-year-old female with a past medical history of questionable previous stroke, hypertension, GERD, paroxysmal SVT, regular mild alcohol use with 2 beers per day and 1 glass of wine at night, high cholesterol, who presents today for burning sensation in chest. Patient states that for the last 4 weeks she has had a burning sensation in her chest. It usually occurs during the day/afternoon. It is improved by exertion. She had not been taking any medications for until it got notably worse in the last few days. Over the last 48 hours it became constant and unremitting. An extreme burning sensation worsened with eating or drinking. She also feels that there is something somewhat stuck down there and has difficulty when she eats. She denies vomiting but does admit to nausea. She did take some Maalox today but it did not improve her symptoms at all. She did see her primary care provider who did prescribe famotidine and omeprazole. She has just started taking this without improvement. No other complaints at this time. No history of esophageal cancer in her family. No hematemesis or hematochezia. She does admit to eating notably less because of the pain. Related Data Home Medications ?Medication ?Instructions ?Recorded ?Confirmed cholecalciferol (vitamin D3) 50 50 mcg PO DAILY 07/14/20 10/17/24 mcg (2,000 unit) capsule epinephrine 0.3 mg/0.3 mL 0.3 mg IM ONCE PRN 07/14/20 10/17/24 injection, auto-injector acetaminophen 500 mg tablet 1,000 mg (2 x 500 mg) PO Q8H PRN 08/23/22 10/17/24 pain #90 tabs aspirin 81 mg tablet,delayed 81 mg PO DAILY 08/25/23 10/17/24 release atorvastatin 40 mg tablet 40 mg PO DAILY 08/25/23 10/17/24 mycophenolate mofetil 500 mg tablet 1,500 mg PO BID 08/25/23 10/17/24 colchicine 0.6 mg tablet 0.6 mg PO DAILY 05/28/24 10/17/24 cyanocobalamin (vitamin B-12) 1,000 mcg sublingual DAILY 05/28/24 10/17/24 1,000 mcg sublingual tablet folic acid 1 mg tablet 1 mg PO DAILY 05/28/24 10/17/24 pantoprazole 40 mg tablet,delayed 40 mg PO DAILY 05/28/24 10/17/24 release potassium chloride 20 mEq 20 meq PO DAILY 05/28/24 10/17/24 tablet,extended release pyridoxine (vitamin B6) 25 mg 25 mg PO DAILY 05/28/24 10/17/24 tablet (Vitamin B-6) vitamin A 2,400 mcg capsule 2,400 mcg PO DAILY 05/28/24 10/17/24 famotidine 20 mg tablet 20 mg PO DAILY 10/17/24 10/17/24 omeprazole 40 mg capsule,delayed 40 mg PO DAILY 10/17/24 10/17/24 release Previous Rx's ?Medication ?Instructions ?Recorded acetaminophen 500 mg tablet 1,000 mg (2 x 500 mg) PO Q8H PRN 08/23/22 pain #90 tabs Allergies Allergy/AdvReac Type Severity Reaction Status Date / Time Sulfa (Sulfonamide Allergy Other (See Unverified 10/17/24 22:04 Antibiotics) Comment) honey bees Allergy Severe Anaphylaxis Uncoded 10/17/24 22:04 General Stated Complaint: Chest Pain LILLY: 3 Exam Narrative Exam Narrative: 1.Const: Well-nourished, Well-developed, appearing stated age 2.Eyes: PERRL, no conjunctival injection, and symmetrical lids. 3.ENT: Atraumatic external nose and ears. Moist MM. Neck: Symmetric, trachea midline, No thyromegaly. 4.CVS: +S1/S2, Peripheral pulses 2+ and equal in all extremities. Brisk capillary refill in all extremities. 5.RESP: Unlabored respiratory effort. Clear to auscultation bilaterally. No wheezes rales or rhonchi 6.GI: Soft, Nontender/Nondistended, No hepatosplenomegaly. No guarding or rebound. Minimal epigastric discomfort 7.MSK: Normocephalic/Atraumatic, Extremities w/o deformity or ttp No cyanosis or clubbing, Normal movement of all extremities 8.Skin: Warm, Dry. No rashes or lesions. 9.Neuro: captain waiter II-XII grossly intact. Sensation grossly intact, no focal neurologic deficits. 10.Psych: (AAO) x3. Appropriate mood and affect Course Vital Signs Vital signs: Vital Signs Pulse 88 10/17/24 22:00 Respiratory Rate 16 10/17/24 22:00 Pulse Oximetry 98 10/17/24 22:00 Temperature 36.6 C 10/17/24 22:04 Temperature Source Oral 10/17/24 22:04 Pulse 88 10/17/24 22:00 Respiratory Rate 18 10/17/24 22:04 Respiratory Effort Normal 10/17/24 22:04 Respiratory Depth Normal 10/17/24 22:04 Respiratory Pattern Normal 10/17/24 22:04 Blood Pressure 196/89 H 10/17/24 22:06 Blood Pressure Mean 124 10/17/24 22:06 Pulse Oximetry 98 10/17/24 22:00 Oxygen Delivery Method Room Air 10/17/24 22:00 Oxygen Flow Rate 0 10/17/24 22:00 Lab/Test Results Lab/Test Results: Laboratory Tests Range/Units 10/17/24 22:17 WBC (4.4-10.8) 10^3/uL 9.47 RBC (3.93-5.22) 10^6/uL 4.65 Hgb (11.2-15.7) g/dL 14.5 Hct (36.0-46.0) % 43.2 MCV (80-95) fL 93 MCH (27.0-33.0) pg 31.2 MCHC (32.0-36.0) % 33.6 RDW (11.7-14.6) % 13.0 Plt Count (130-400) 10^3/uL 224 MPV (8.0-11.0) fL 9.8 Immature Gran % % 0.3 Neutrophils % % 63.0 Lymphocytes % % 22.9 Monocytes % % 12.1 Eosinophils % % 1.0 Basophils % % 0.7 Nucleated RBC % (0.0-0.3) % 0.0 Absolute Neutrophils (1.2-6.7) 10^3/uL 5.96 Absolute Lymphocytes (1.2-3.4) 10^3/uL 2.17 Absolute Monocytes (0.1-0.8) 10^3/uL 1.15 H Absolute Eosinophils (0.0-0.7) 10^3/uL 0.09 Absolute Basophils (0.0-0.2) 10^3/uL 0.07 PT (9.1-11.1) sec 10.9 INR (0.9-1.1) 1.1 APTT (20.6-30.2) sec 23.9 Sodium (136-145) mmol/L 141 Potassium (3.5-5.1) mmol/L 3.2 L Chloride (98-107) mmol/L 103 Carbon Dioxide (21.0-32.0) mmol/L 25.5 Anion Gap (3-11) mmol/L 12.5 H BUN (7-18) mg/dL 11 Creatinine (0.55-1.02) mg/dL 0.6 Est GFR (CKD-EPI 2020) (mL/min/1.73m2) 92.39 Glucose (74-106) mg/dL 102 Calcium (8.5-10.1) mg/dL 10.0 Total Bilirubin (0.2-1.0) mg/dL 0.9 AST (15-37) U/L 29 ALT (14-59) U/L 28 Alkaline Phosphatase (46-116) U/L 160 H Troponin I (<or=51) ng/L 13 Total Protein (6.4-8.2) g/dL 7.6 Albumin (3.4-5.0) g/dL 3.9 Lipase (<78) U/L 22 Medical Decision Making This is a 79-year-old female with a past medical history of questionable previous stroke, hypertension, GERD, paroxysmal SVT, regular mild alcohol use with 2 beers per day and 1 glass of wine at night, high cholesterol, who presents today for burning sensation in chest. Patient states that for the last 4 weeks she has had a burning sensation in her chest. It usually occurs during the day/afternoon. It is improved by exertion. She had not been taking any medications for until it got notably worse in the last few days. Over the last 48 hours it became constant and unremitting. An extreme burning sensation worsened with eating or drinking. She also feels that there is something somewhat stuck down there and has difficulty when she eats. She denies vomiting but does admit to nausea. She did take some Maalox today but it did not improve her symptoms at all. She did see her primary care provider who did prescribe famotidine and omeprazole. She has just started taking this without improvement. No other complaints at this time. No history of esophageal cancer in her family. No hematemesis or hematochezia. She does admit to eating notably less because of the pain. Exam demonstrates a well-appearing female, stable vital signs, mildly to moderately hypertensive, minimal epigastric discomfort. Differential is broad, however symptoms appear unlikely to be cardiac etiology. She has no exertional components, no heaviness in her chest, no bandlike sensation in her chest or arm neck or shoulder pain. The burning sensation initially appeared to be during the day and improved with exertion. Esophagitis, GERD, gastric ulcer, is high on the differential. However esophageal cancer is of concern as well. We did try a GI cocktail here and she promptly vomited it up. Concern for potential abdominal pathology as well. Will get CT scan of the chest and abdomen, give IV Protonix and famotidine, monitor closely and reassess. EKG shows no evidence of STEMI. 1 AM Laboratory workup has returned unremarkable. No white count bandemia or left shift. Electrolytes stable aside from minimally low potassium at 3.2. Serial troponins normal. Lipase normal. On reassessment the patient had no improvement with GI cocktail. As previously described she immediately vomited it up. CT scan results show evidence of a notable amount of fluid in the esophagus consistent with GERD and potential achalasia. However symptomatically, symptoms appear more consistent with an obstruction, likely at the GE junction. CT scan also shows evidence of stomach wall thickening and edema of the esophagogastric mucosa. I suspect this is reflective of inflammation of the GE junction, and a component of her symptomatology. Patient would benefit from EGD. We did give 1 mg of glucagon, this did not improve the patient's symptoms. She is still not able to tolerate significant p.o. I did reach out to surgery and discussed the case with Dr. Berman, she agrees on the need for EGD and does recommend admission to the medicine team. I did contact the hospitalist Dr. Fuentes, he agrees with the assessment and plan. Patient will be admitted for further management. Patient has been started on 150 mL/h of normal saline for maintenance. I have extensively reviewed the treatment plan with the patient. I have addressed all patient concerns at this time. I have also discussed the plan with the admitting physician and they agree with the current assessment and plan and have agreed to assume responsibility for the patient. All parties demonstrate verbal understanding and agreement with our assessment and plan at this time. The documentation in this chart was dictated using [employer] dictation software. Please excuse any dictation errors. FINDINGS: Lungs: Unremarkable. No consolidation. No masses. Pleural spaces: There is no evidence of pneumothorax. There are no pleural effusions present. Heart: There is calcification of the cardiac aortic valve annulus. The cardiac structures are normal. Coronary arteries: There is mild atherosclerotic calcification of the coronary arteries. Esophagus: Copious amount of fluid is seen within the esophagus consistent with severe gastroesophageal reflux. Consider achalasia. Lymph nodes: Unremarkable. No enlarged lymph nodes. Vasculature: The pulmonary arteries are not enlarged. There is no evidence of filling defects within the pulmonary arterial circulation to suggest pulmonary embolism. Intraperitoneal space: Please see CT of the abdomen and pelvis. Bones/joints: The skeletal structures and soft tissues show no evidence of fracture or other acute processes. Soft tissues: The soft tissues of the extrathoracic region are unremarkable. IMPRESSION: 1. Copious amount of fluid is seen within the esophagus consistent with severe gastroesophageal reflux. Consider achalasia. 2. There is no evidence of filling defects within the pulmonary arterial circulation to suggest pulmonary embolism. FINDINGS: Lungs: Please see CT of the chest and lungs. Esophagus: Copious amount of fluid is seen within the esophagus consistent with severe gastroesophageal reflux. Consider achalasia. Liver: Low-attenuation lesions present within the left and right liver lobe the largest measuring 3.3 x 4.5 x 3.7 cm additional lesions are present within the right liver lobe. Findings may represent hemangiomas versus primary metastatic malignancy. MRI of the liver may prove helpful for further evaluation. There is a diffuse decrease in hepatic parenchymal density, consistent with mild fatty infiltration. Gallbladder and biliary ducts: The gallbladder is normal. There is no cholelitiasis, wall thickening or pericholecystic fluid to suggest cholecystitis. Pancreas: Pancreas is unremarkable. No ductal dilation. Spleen: The spleen is normal. Adrenal glands: The adrenal glands are normal. Kidneys and ureters: There are bilateral simple appearing renal cysts the largest within the left kidney measuring 4.8 cm in diameter. Largest within the right kidney measuring 10 mm. The kidneys are otherwise unremarkable. No evidence of renal calculi. Stomach and bowel: The stomach wall is thickened and edematous there is thickening and enhancement of the esophagogastric mucosa. Consider esophagogastritis. Moderate diverticulosis is present in the sigmoid and descending colon. There is moderate increased colonic fecal content. The colon is mildly distended. These findings suggest a moderate degree of constipation. Clinical correlation recommended. 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 Fluid-filled loops of small bowel may represent early enteritis. Appendix: No evidence of appendicitis. Intraperitoneal space: No free air. No significant fluid collection. Vasculature: The aorta demonstrates mild atherosclerotic calcification. The arterial peripheral vasculature demonstrates diffuse mild atherosclerotic calcification. No abdominal aortic aneurysm. The portal, mesenteric and splenic veins are patent.The inferior venacava appears normal. Lymph nodes: No evidence of lymphadenopathy. Urinary bladder: The bladder is normal. Reproductive: The uterus is normal. The ovaries are normal. Bones/joints: The skeletal structures and soft tissues show no evidence of fracture or other acute processes. Moderate to severe degenerative changes of the lumbosacral spine. Grade 1 anterolisthesis of L4 anteriorly on L5 no definitive spondylolytic changes. Soft tissues: The extra-abdominal soft tissues are normal. IMPRESSION: 1. Copious amount of fluid is seen within the esophagus consistent with severe gastroesophageal reflux. Consider achalasia. 2. The stomach wall is thickened and edematous there is thickening and enhancement of the esophagogastric mucosa. Consider esophagogastritis. Fluid-filled loops of small bowel may represent early enteritis. 3. Low-attenuation lesions present within the left and right liver lobe the largest measuring 3.3 x 4.5 x 3.7 cm additional lesions are present within the right liver lobe. Findings may represent hemangiomas versus primary metastatic malignancy. MRI of the liver may prove helpful for further evaluation. Thank you for allowing us to participate in the care of your patient. Dictated and Authenticated by: Santino Antonio MD 10/18/2024 12:33 AM Eastern Time ([place] & C Critical Care Time Critical Care Time Critical Care Time: Yes Total Critical Care Time: 30 Attestation: Upon my evaluation, this patient had a high probability of imminent or life-threatening deterioration, which required my direct attention, intervention, and personal management. I have personally provided 30 minutes of critical care time exclusive of time spent on separately billable procedures. Time includes review of laboratory data, radiology results, discussion with consultants, and monitoring for potential decompensation. Interventions were performed as documented. [facility] All Active Problems (Updated 10/18/24 @ 01:57 by Adrian Kimball DO) Acute esophageal obstruction (Acute) Vision impairment (Acute) Achilles tendon contracture, right (Acute) Capsulitis of right foot (Acute) Bursitis (Acute) Metatarsalgia, right foot (Acute) History of total right knee replacement (Acute 08/23/22) Intra-Op medial condylar fracture fixated with screws fixation. Anemia due to acute blood loss (Acute) Multiple gastric polyps (Acute) Esophagitis (Acute) Hypomagnesemia (Acute) Multiple gastric polyps (Acute ~03/16/20) bleeding adn necrotic Discharge planning issues (Acute) DVT prophylaxis (Acute) H/O: CVA (cerebrovascular accident) (Chronic) Weight loss, non-intentional (Acute) Dysphagia (Chronic) Upper gastrointestinal bleeding (Acute) Medical History Dislocation of right shoulder joint >35 years ago Reduced in ER History of stroke >30 years ago; denies residual issues History of breast cancer (~2011) Treated with left breast lumpectomy and sentinel lymph node biopsies and subsequent radiation and chemotherapy; follow-up through [facility] Surgical History Status post laparotomy Performed for evaluation of possible ectopic but none found S/P breast lumpectomy (~2011) Family History Father No problems noted. Other Colon cancer Social History Smoking/Tobacco Use Status: Never Smoking risk assessment performed?: Yes Alcohol Intake: current Alcohol Intake frequency: 0-2 drinks per day Alcohol type: beer and wine Substance use type: does not use What type of physical activity do you participate in: none Additional Social history: Unable to assess [facility] History History 0 Para Hx # Term Pregnancies Multiple births Hx # Pregnancies Ectopic pregnancies AB induced Hx Number of Living Children AB spontaneous
[2024-10-17 23:26] LABS: Troponin I 14 ng/L (<or=51)
[2024-10-17] MEDS: Omnipaque 350 MG/ML 100 ML BTL 75 ML IJ (23:38)
[2024-10-17] MEDS: Normal Saline - Diluent 50 ML VIAL IJ (23:39)
--- NOTE | 2024-10-17 23:45 | DI.CT_ITS ---
Exam(s) CT CHEST/ABD/PEL W EXAM: CT CHEST/ABD/PEL W CLINICAL HISTORY: burning CP and globus sensation, vomiting. TECHNIQUE: Imaging Protocol: Axial computed tomography images with coronal and sagittal reformatted images were created and reviewed. Computer aided detection (CAD) was utilized. CONTRAST MATERIAL: Intravenous: Omnipaque 350 Contrast volume:75 mL Oral: / no COMPARISON: MG SCREENING [facility] MAMMO W/CAD DIGI from 04/08/2009 US LEFT BREAST ULTRASOUND from 04/14/2009 MG DIAGNOSTIC LEFT MAMMO DIGITAL from 04/14/2009 CR,XR XR ABD FLAT UPRIGHT PA CHEST from 03/15/2020 FINDINGS: CHEST: Pulmonary parenchyma: No consolidation. No dominant measurable mass. Tracheobronchial tree: No bronchiectasis. No mucous plugging.No bronchial wall thickening. Pleura: No effusion or pneumothorax. Mediastinum: No adenopathy. The esophagus is markedly distended with fluid. The some lingering high-density material posteriorly. Pulmonary arteries: No visible emboli. Cardiovascular: Normal heart size. Aortic valve calcification and mild coronary artery. No pericardial effusion. Thoracic aorta non-dilated. Bones: Unremarkable for age. No lytic lesions. There fuse high density foci in the midthoracic vertebral body and spinous process appear nonspecific. These may represent bone islands. No compression fractures. Soft tissues: Focal area of presumed arm scarring in the lateral right breast, presumably related to lumpectomy. A left breast mass was seen on the 2010 mammogram and ultrasound. This abuts the chest wall. Clinical correlation recommended. ABDOMEN and PELVIS: Liver: Normal density. Ill-defined 4.5 centimeter low-density lesion noted near the dome of the diaphragm anteriorly. Additional lesion seen posteriorly near the diaphragm measuring the 3.2 cm. Other low-density lesion seen anteriorly in the right lobe measuring 10 millimeters. Gallbladder and biliary tract: No evidence of stones or wall thickening. No biliary dilatation. Pancreas: Normal density, no abnormal calcifications or inflammatory process. Spleen: Normal. Kidneys: Normal size, contour and axis. No radiodense stones. No obstructive uropathy. Cysts. No suspicious masses seen. Adrenal glands: No masses seen. Aorta: Abdominal portion non-dilated. Mild atherosclerotic changes. Lymph nodes: 11 millimeter lymph node noted to the right of the esophagus at the level of the GE junction.. Soft tissues: Chronic calcification noted in the subcutaneous fat at the level of the iliac crest posteriorly. Bladder: Nearly empty but unremarkable. Bowel: The stomach is empty and difficult to evaluate. There is marked dilatation of the esophagus with fluid. A mass is not excluded at the GE junction. No obstruction. Widespread colonic diverticulosis. Peritoneal cavity: No ascites. No focal collection. No mesenteric inflammatory response. No free air. Bones: Degenerative changes in the lumbar spine. No compression fracture. No lytic or blastic lesions. Reproductive organs: Unremarkable for age. IMPRESSION: Dilated fluid-filled esophagus. Consider mass versus stricture at the GE junction. Endoscopy recommended. Suspicious appearing liver lesions which may represent metastatic disease versus primary malignancy. The preliminary [facility] report was reviewed. RADIATION DOSE DELIVERED: 351mGy.cm Total DLP DATA REPOSITORY: All CT scans at this facility are submitted to the National Radiology Data Registry (NRDR) Dose Index Registry (DIR) with the [employer] ([employer]). RADIATION OPTIMIZATION: All CT scans at this facility use at least one of these dose optimization techniques: automated exposure control; mA and/or kV adjustment per patient size (includes targeted exams where dose is matched to clinical indication); or iterative reconstruction.
[2024-10-17] MEDS: MORPHine 4 MG/ML SYR IVP (23:58)
[2024-10-18] VITALS (113 sets, daily range): BP systolic 93–196; BP diastolic 55–175; PULSE 58–91; RESP 11–23; TEMP 35.9–36.8; O2SAT 93–100; BMI 24.4
[2024-10-18] MEDS: Glucagon 1 MG VIAL IVP (00:22)
--- NOTE | 2024-10-18 00:34 | DI.[facility]_ITS ---
PROCEDURE INFORMATION: Exam: CT Chest With Contrast; Diagnostic Exam date and time: 10/17/2024 11:11 PM Age: 79 years old Clinical indication: Other: Chest pain; Burning cp and globus sensation, vomiting TECHNIQUE: Imaging protocol: Diagnostic computed tomography of the chest with contrast. 3D rendering (Not supervised by radiologist): MIP and/or 3D reconstructed images were created by the technologist. Radiation optimization: All CT scans at this facility use at least one of these dose optimization techniques: automated exposure control; mA and/or kV adjustment per patient size (includes targeted exams where dose is matched to clinical indication); or iterative reconstruction. Contrast material: [id number]; Contrast volume: 75 ml; Contrast route: INTRAVENOUS (IV); COMPARISON: CR XR ABD FLAT UPRIGHT PA CHEST 03/15/2020 8:04 PM FINDINGS: Lungs: Unremarkable. No consolidation. No masses. Pleural spaces: There is no evidence of pneumothorax. There are no pleural effusions present. Heart: There is calcification of the cardiac aortic valve annulus. The cardiac structures are normal. Coronary arteries: There is mild atherosclerotic calcification of the coronary arteries. Esophagus: Copious amount of fluid is seen within the esophagus consistent with severe gastroesophageal reflux. Consider achalasia. Lymph nodes: Unremarkable. No enlarged lymph nodes. Vasculature: The pulmonary arteries are not enlarged. There is no evidence of filling defects within the pulmonary arterial circulation to suggest pulmonary embolism. Intraperitoneal space: Please see CT of the abdomen and pelvis. Bones/joints: The skeletal structures and soft tissues show no evidence of fracture or other acute processes. Soft tissues: The soft tissues of the extrathoracic region are unremarkable. IMPRESSION: 1. Copious amount of fluid is seen within the esophagus consistent with severe gastroesophageal reflux. Consider achalasia. 2. There is no evidence of filling defects within the pulmonary arterial circulation to suggest pulmonary embolism. PROCEDURE INFORMATION: Exam: CT Abdomen And Pelvis With Contrast Exam date and time: 10/17/2024 11:11 PM Age: 79 years old Clinical indication: Other: Chest pain; Burning cp and globus sensation, vomiting TECHNIQUE: Imaging protocol: Computed tomography of the abdomen and pelvis with contrast. 3D rendering (Not supervised by radiologist): MIP and/or 3D reconstructed images were created by the technologist. Radiation optimization: All CT scans at this facility use at least one of these dose optimization techniques: automated exposure control; mA and/or kV adjustment per patient size (includes targeted exams where dose is matched to clinical indication); or iterative reconstruction. Contrast material: [id number]; Contrast volume: 75 ml; Contrast route: INTRAVENOUS (IV); COMPARISON: CR XR HIP LT COMPLETE AP PELVIS 09/10/2020 10:48 AM FINDINGS: Lungs: Please see CT of the chest and lungs. Esophagus: Copious amount of fluid is seen within the esophagus consistent with severe gastroesophageal reflux. Consider achalasia. Liver: Low-attenuation lesions present within the left and right liver lobe the largest measuring 3.3 x 4.5 x 3.7 cm additional lesions are present within the right liver lobe. Findings may represent hemangiomas versus primary metastatic malignancy. MRI of the liver may prove helpful for further evaluation. There is a diffuse decrease in hepatic parenchymal density, consistent with mild fatty infiltration. Gallbladder and biliary ducts: The gallbladder is normal. There is no cholelitiasis, wall thickening or pericholecystic fluid to suggest cholecystitis. Pancreas: Pancreas is unremarkable. No ductal dilation. Spleen: The spleen is normal. Adrenal glands: The adrenal glands are normal. Kidneys and ureters: There are bilateral simple appearing renal cysts the largest within the left kidney measuring 4.8 cm in diameter. Largest within the right kidney measuring 10 mm. The kidneys are otherwise unremarkable. No evidence of renal calculi. Stomach and bowel: The stomach wall is thickened and edematous there is thickening and enhancement of the esophagogastric mucosa. Consider esophagogastritis. Moderate diverticulosis is present in the sigmoid and descending colon. There is moderate increased colonic fecal content. The colon is mildly distended. These findings suggest a moderate degree of constipation. Clinical correlation recommended. 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 Fluid-filled loops of small bowel may represent early enteritis. Appendix: No evidence of appendicitis. Intraperitoneal space: No free air. No significant fluid collection. Vasculature: The aorta demonstrates mild atherosclerotic calcification. The arterial peripheral vasculature demonstrates diffuse mild atherosclerotic calcification. No abdominal aortic aneurysm. The portal, mesenteric and splenic veins are patent.The inferior venacava appears normal. Lymph nodes: No evidence of lymphadenopathy. Urinary bladder: The bladder is normal. Reproductive: The uterus is normal. The ovaries are normal. Bones/joints: The skeletal structures and soft tissues show no evidence of fracture or other acute processes. Moderate to severe degenerative changes of the lumbosacral spine. Grade 1 anterolisthesis of L4 anteriorly on L5 no definitive spondylolytic changes. Soft tissues: The extra-abdominal soft tissues are normal. IMPRESSION: 1. Copious amount of fluid is seen within the esophagus consistent with severe gastroesophageal reflux. Consider achalasia. 2. The stomach wall is thickened and edematous there is thickening and enhancement of the esophagogastric mucosa. Consider esophagogastritis. Fluid-filled loops of small bowel may represent early enteritis. 3. Low-attenuation lesions present within the left and right liver lobe the largest measuring 3.3 x 4.5 x 3.7 cm additional lesions are present within the right liver lobe. Findings may represent hemangiomas versus primary metastatic malignancy. MRI of the liver may prove helpful for further evaluation. Dictated and Authenticated by: Santino Antonio MD. Orderin Jigar Campbell MD
--- NOTE | 2024-10-18 03:00 | W.PM.HP.N ---
Date of service: 10/18/24 Time of Service: 03:01 Assessment and Plan Assessment and plan (1) Acute esophageal obstruction: Start date: 10/18/24 Status: Acute Assessment and plan: This is 79-year-old lady who has had progressive symptoms of dysphagia and severe heartburn now with complete obstruction of her lower esophagus with fluid-filled esophagus on imaging and patient having inability to swallow liquids or solids with severe heartburn. She does vomit mucus material and any food that she tries to swallow. She will be n.p.o. over the night with surgery consulted planning EGD in the morning. Patient does have a history of gastric polyp which were multiple and never fully removed in the last 4 years. She also has liver lesions on imaging with concern for malignancy in her esophagus/stomach and metastatic disease to the liver. She is a full code. (2) Multiple gastric polyps: Status: Chronic Assessment and plan: This may. Patient had risk for malignancy in her stomach or esophagus. She had multiple EGDs with removal of suspicious polyps in the past but not in the recent year. She has not seen blood in her u stool or vomitus. She has had weight loss with her recent events but this could be from decreased intake rather than malignancy. She is not having resting pain in her stomach. (3) Hypokalemia: Start date: 10/18/24 Status: Acute Assessment and plan: This may be secondary to nutritional versus loss the patient chronically on potassium supplement. Replete and follow-up lab. Magnesium will be checked as well. (4) HTN (hypertension): Status: Chronic Assessment and plan: Not on treatment and elevated. His hospital stay with acute distress. Monitor and treat as indicated. (5) GERD (gastroesophageal reflux disease): Status: Chronic Assessment and plan: Patient is chronically on PPIs and this may be exacerbated by her gastric polyps. (6) History of breast cancer: Assessment and plan: Left breast lumpectomy with radiation and chemotherapy. SOWMYA by patient's report. 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 She is coping fairly well wearing dark glasses and can see outlines of people remembering them mostly by their voices. History of Present Illness History of Present Illness Chief Complaint: Unable to swallow over 1 week with dysphagia for 4 weeks. Narrative: This is a 79-year-old female patient has a history of left breast cancer with was resected by lumpectomy treated with radiation and chemotherapy. 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 She can only see images. She presents with a 4-week history of worsening dysphagia and severe heartburn. Mostly she was having heartburn but not chest pain. Over this last week she has not been able to eat any solids and barely drinking any fluid. She would vomit any food that she attempted to eat and would also vomit mucus material. It was not bilious. She had no blood in her vomitus. He has lost 10 pounds over this last 4 weeks. She has a very supportive at home. She presented to the ED because of concerns of dehydration and starvation not been able to swallow for 1 week. She was evaluated and found to have severe obstruction of the distal esophagus with swelling as well as swelling in her stomach. She does have a history of polyps in her stomach which were multiple and the surgeon at [facility] was not able to completely remove all the polyps when first discovered 4 years ago. She did have every 2-year EGDs for her gastric polyps with the last procedure about 1 year ago. They never were able to completely remove all the polyps and stated with her age, further follow-up was most likely not needed. She has not seen any blood in her stool. She has no urinary complaints. The CT findings of changes of the esophagus and stomach as well as a possible lesion in the liver, patient will be admitted for IV hydration and surgical consultation for EGD in the morning. She is NPO. Patient is a full code. Review of Systems Narrative: 13 point review of systems otherwise unrevealing or stable. PFSH All Active Problems (Updated 10/18/24 @ 03:15 by Ramon Fuentes) Hypokalemia (Acute) Acute esophageal obstruction (Acute) Vision impairment (Chronic) Achilles tendon contracture, right (Acute) Capsulitis of right foot (Acute) Bursitis (Acute) Metatarsalgia, right foot (Acute) History of total right knee replacement (Acute 08/23/22) Intra-Op medial condylar fracture fixated with screws fixation. Anemia due to acute blood loss (Acute) Multiple gastric polyps (Chronic) Esophagitis (Acute) Hypomagnesemia (Acute) Multiple gastric polyps (Acute ~12/21/20) bleeding adn necrotic Discharge planning issues (Acute) DVT prophylaxis (Acute) H/O: CVA (cerebrovascular accident) (Chronic) Weight loss, non-intentional (Acute) Dysphagia (Chronic) Upper gastrointestinal bleeding (Acute) HTN (hypertension) (Chronic) GERD (gastroesophageal reflux disease) (Chronic) No history of formal endoscopic evaluation but empirically treated with AcipHex Medical History Dislocation of right shoulder joint >35 years ago Reduced in ER History of stroke >30 years ago; denies residual issues History of breast cancer (~2011) Treated with left breast lumpectomy and sentinel lymph node biopsies and subsequent radiation and chemotherapy; follow-up through [facility] Surgical History Status post laparotomy Performed for evaluation of possible ectopic but none found S/P breast lumpectomy (~2011) Family History Father No problems noted. Other Colon cancer Social History Smoking/Tobacco Use Status: Never Smoking risk assessment performed?: Yes Alcohol Intake: current Alcohol Intake frequency: 0-2 drinks per day Alcohol type: beer and wine Substance use type: does not use What type of physical activity do you participate in: none Additional [facility]: [facility] History 0 Para Hx # Term Pregnancies Multiple births Hx # Pregnancies Ectopic pregnancies AB induced Hx Number of Living Children AB spontaneous Meds Allergies and Home Medications Allergies Allergy/AdvReac Type Severity Reaction Status Date / Time Sulfa (Sulfonamide Allergy Other (See Unverified 10/17/24 22:04 Antibiotics) Comment) honey bees Allergy Severe Anaphylaxis Uncoded 10/17/24 22:04 Home Medications ?Medication ?Instructions ?Recorded ?Confirmed ?Type cholecalciferol (vitamin D3) 50 50 mcg PO DAILY 07/14/20 10/17/24 History mcg (2,000 unit) capsule epinephrine 0.3 mg/0.3 mL 0.3 mg IM ONCE PRN 07/14/20 10/17/24 History injection, auto-injector acetaminophen 500 mg tablet 1,000 mg (2 x 500 mg) PO Q8H PRN 08/23/22 10/17/24 Rx pain #90 tabs aspirin 81 mg tablet,delayed 81 mg PO DAILY 08/25/23 10/17/24 History release atorvastatin 40 mg tablet 40 mg PO DAILY 08/25/23 10/17/24 History mycophenolate mofetil 500 mg tablet 1,500 mg PO BID 08/25/23 10/17/24 History colchicine 0.6 mg tablet 0.6 mg PO DAILY 05/28/24 10/17/24 History cyanocobalamin (vitamin B-12) 1,000 mcg sublingual DAILY 05/28/24 10/17/24 History 1,000 mcg sublingual tablet folic acid 1 mg tablet 1 mg PO DAILY 05/28/24 10/17/24 History pantoprazole 40 mg tablet,delayed 40 mg PO DAILY 05/28/24 10/17/24 History release potassium chloride 20 mEq 20 meq PO DAILY 05/28/24 10/17/24 History tablet,extended release pyridoxine (vitamin B6) 25 mg 25 mg PO DAILY 05/28/24 10/17/24 History tablet (Vitamin B-6) vitamin A 2,400 mcg capsule 2,400 mcg PO DAILY 05/28/24 10/17/24 History famotidine 20 mg tablet 20 mg PO DAILY 10/17/24 10/17/24 History omeprazole 40 mg capsule,delayed 40 mg PO DAILY 10/17/24 10/17/24 History release Exam Narrative Exam Narrative: General: Patient is short stature, she wears dark sunglasses and is very talkative. She is in no acute distress. She is alert and oriented x 3. HEENT: Normocephalic, patient is wearing dark glasses and has been examined, ears normal, oropharynx with moist mucosa and fair dentition. Neck: Supple without JVD. Back: Kyphotic without CVA tenderness. Lungs: Normal aeration and clear to auscultation and percussion. No expiratory wheeze. Breast: Exam deferred with patient having previous lumpectomy left breast. Heart: Regular rate and rhythm with no murmurs gallops appreciated. Abdomen: Obese contour, soft and nontender to palpation with no palpable hepatosplenomegaly. No epigastric tenderness or guarding. No rebound.'s is positive all quadrants. Genitalia/rectal: Exam deferred. Extremities without clubbing, cyanosis or pitting edema. Good capillary refill. Skin: Normal color, warm and dry. Neuro: Cranial nerves II through XII grossly intact except for decreased vision, no focalized motor deficits. No tremor. Psych: Normal affect and mood. No abnormal thought processes. Remote and recent memory intact. Results Imaging Imaging Studies: Exam: CT Chest With Contrast; Diagnostic Exam date and time: 10/17/2024 11:11 PM Age: 79 years old Clinical indication: Other: Chest pain; Burning cp and globus sensation, vomiting COMPARISON: CR XR ABD FLAT UPRIGHT PA CHEST 03/15/2020 8:04 PM FINDINGS: Lungs: Unremarkable. No consolidation. No masses. Pleural spaces: There is no evidence of pneumothorax. There are no pleural effusions present. Heart: There is calcification of the cardiac aortic valve annulus. The cardiac structures are normal. Coronary arteries: There is mild atherosclerotic calcification of the coronary arteries. Esophagus: Copious amount of fluid is seen within the esophagus consistent with severe gastroesophageal reflux. Consider achalasia. Lymph nodes: Unremarkable. No enlarged lymph nodes. Vasculature: The pulmonary arteries are not enlarged. There is no evidence of filling defects within the pulmonary arterial circulation to suggest pulmonary embolism. Intraperitoneal space: Please see CT of the abdomen and pelvis. Bones/joints: The skeletal structures and soft tissues show no evidence of fracture or other acute processes. Soft tissues: The soft tissues of the extrathoracic region are unremarkable. IMPRESSION: 1. Copious amount of fluid is seen within the esophagus consistent with severe gastroesophageal reflux. Consider achalasia. 2. There is no evidence of filling defects within the pulmonary arterial circulation to suggest pulmonary embolism. PROCEDURE INFORMATION: Exam: CT Abdomen And Pelvis With Contrast Exam date and time: 10/17/2024 11:11 PM Age: 79 years old Clinical indication: Other: Chest pain; Burning cp and globus sensation, vomiting COMPARISON: CR XR HIP LT COMPLETE AP PELVIS 09/10/2020 10:48 AM FINDINGS: Lungs: Please see CT of the chest and lungs. Esophagus: Copious amount of fluid is seen within the esophagus consistent with severe gastroesophageal reflux. Consider achalasia. Liver: Low-attenuation lesions present within the left and right liver lobe the largest measuring 3.3 x 4.5 x 3.7 cm additional lesions are present within the right liver lobe. Findings may represent hemangiomas versus primary metastatic malignancy. MRI of the liver may prove helpful for further evaluation. There is a diffuse decrease in hepatic parenchymal density, consistent with mild fatty infiltration. Gallbladder and biliary ducts: The gallbladder is normal. There is no cholelitiasis, wall thickening or pericholecystic fluid to suggest cholecystitis. Pancreas: Pancreas is unremarkable. No ductal dilation. Spleen: The spleen is normal. Adrenal glands: The adrenal glands are normal. Kidneys and ureters: There are bilateral simple appearing renal cysts the largest within the left kidney measuring 4.8 cm in diameter. Largest within the right kidney measuring 10 mm. The kidneys are otherwise unremarkable. No evidence of renal calculi. Stomach and bowel: The stomach wall is thickened and edematous there is thickening and enhancement of the esophagogastric mucosa. Consider esophagogastritis. Moderate diverticulosis is present in the sigmoid and descending colon. There is moderate increased colonic fecal content. The colon is mildly distended. These findings suggest a moderate degree of constipation. Clinical correlation recommended. 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 Fluid-filled loops of small bowel may represent early enteritis. Appendix: No evidence of appendicitis. Intraperitoneal space: No free air. No significant fluid collection. Vasculature: The aorta demonstrates mild atherosclerotic calcification. The arterial peripheral vasculature demonstrates diffuse mild atherosclerotic calcification. No abdominal aortic aneurysm. The portal, mesenteric and splenic veins are patent.The inferior venacava appears normal. Lymph nodes: No evidence of lymphadenopathy. Urinary bladder: The bladder is normal. Reproductive: The uterus is normal. The ovaries are normal. Bones/joints: The skeletal structures and soft tissues show no evidence of fracture or other acute processes. Moderate to severe degenerative changes of the lumbosacral spine. Grade 1 anterolisthesis of L4 anteriorly on L5 no definitive spondylolytic changes. Soft tissues: The extra-abdominal soft tissues are normal. IMPRESSION: 1. Copious amount of fluid is seen within the esophagus consistent with severe gastroesophageal reflux. Consider achalasia. 2. The stomach wall is thickened and edematous there is thickening and enhancement of the esophagogastric mucosa. Consider esophagogastritis. Fluid-filled loops of small bowel may represent early enteritis. 3. Low-attenuation lesions present within the left and right liver lobe the largest measuring 3.3 x 4.5 x 3.7 cm additional lesions are present within the right liver lobe. Findings may represent hemangiomas versus primary metastatic malignancy. MRI of the liver may prove helpful for further evaluation. Labs 10/17/24 22:17 10/17/24 22:17 Labs: Laboratory Results - last 24 hr 10/17/24 10/17/24 10/18/24 22:17 23:04 01:16 WBC 9.47 RBC 4.65 Hgb 14.5 Hct 43.2 MCV 93 MCH 31.2 MCHC 33.6 RDW 13.0 Plt Count 224 MPV 9.8 Immature Gran % 0.3 Neutrophils % 63.0 Lymphocytes % 22.9 Monocytes % 12.1 Eosinophils % 1.0 Basophils % 0.7 Nucleated RBC % 0.0 Absolute Neutrophils 5.96 Absolute Lymphocytes 2.17 Absolute Monocytes 1.15 H Absolute Eosinophils 0.09 Absolute Basophils 0.07 PT 10.9 INR 1.1 APTT 23.9 Sodium 141 Potassium 3.2 L Chloride 103 Carbon Dioxide 25.5 Anion Gap 12.5 H BUN 11 Creatinine 0.6 Est GFR (CKD-EPI 2020) 92.39 Glucose 102 Calcium 10.0 Total Bilirubin 0.9 AST 29 ALT 28 Alkaline Phosphatase 160 H Troponin I 13 14 Cancelled Total Protein 7.6 Albumin 3.9 Lipase 22 Last Vital Signs Temp 36.6 C 10/17/24 22:04 Pulse 83 10/17/24 23:57 Resp 17 10/17/24 23:57 BP 165/92 H 10/17/24 23:57 Pulse Ox 97 10/17/24 23:57 Time Spent Time spent with Patient: >75 minutes Time was spent: preparing to see the patient(eg.review tests), obtaining and/or reviewing separately otained hiistory, ordering medications,tests, procedures, referring, communicating with other health senior care manager, indepentently interpreting results, counseling the patient and care coordination
[2024-10-18] MEDS: Normal Saline 1,000 ML 125 ML IV ×2 (05:51→18:13)
[2024-10-18] MEDS: Normal Saline Flush 10 ML SYR IVP ×4 (05:53→21:40)
[2024-10-18] MEDS: POTASSIUM CHLORIDE 20 MEQ/100 ML BAG 50 MEQ IV_INF (05:54)
[2024-10-18] MEDS: Pantoprazole 40 MG VIAL IVP (06:44)
--- NOTE | 2024-10-18 07:49 | W.SURGCON ---
Date of service: 10/18/24 Time of Service: 07:49 Assessment and Plan Assessment and plan (1) Acute esophageal obstruction: Status: Acute Assessment and plan: Acute severe symptomatic esophageal obstruction. Suspect this is due to hiatal hernia associated reflux and stricture, though obstruction by gastric polyposis or other mass lesion is possible. Other differential includes eosinophilic esophagitis, achalasia, other esophageal spasm disorder. I recommend an EGD today for diagnostic and therapeutic intent. If a stricture is identified dilation will be performed if safe. I confirmed with her that she does not take Plavix or anticoagulants. If dilation is not possible we will consider a PPI drip for acute management and repeat attempt dilation after few days. If a mass lesion is identified then management will depend on what and where the mass lesion is. At esophageal mass obstruction will be referred to a tertiary center. Regrowth of gastric polyposis causing obstruction can be managed by me with endoscopic resection and polypectomy. If there is no evidence of inflammatory changes or visible obstruction this is likely an esophageal spasm disorder and dilation can be performed followed by upper GI x-ray for diagnosis. I will order twice daily PPI for her for now and plan the EGD for this afternoon. (2) Hiatal hernia with GERD and esophagitis: Status: Acute Assessment and plan: EGD planned for today for therapeutic and diagnostic intent. If peptic stricture of the esophagus is identified, then this occurred despite long-term PPI use. I will increase her to twice daily PPI in that case and send her for evaluation for hiatal hernia repair as this would be a severe complication from that. (3) Weight loss, non-intentional: Status: Acute (4) Multiple gastric polyps: Status: Acute History of Present Illness History of Present Illness Chief Complaint: blocked esophagus Narrative: 79-year-old female admitted with esophageal obstruction. She has not been able to eat or drink for 2 days. She can swallow her own saliva and is not spitting it into a container. But in terms of drinking liquids or eating food she has been unable to tolerate any amount of intake. For the last 2 days it has become more severe but it has been worsening acutely for 2 weeks. In the last month she noticed her ability to eat and swallow without throwing up going downhill. She is lost 21 pounds in the last 4 weeks. She has had a lot of problems with heartburn during this time. She now feels epigastric pain that feels like a burning fire in her chest. She takes omeprazole 40 mg once a day and takes famotidine 40 mg once a day also. She contacted her PCPs office and those prescriptions were sent for her while they work to get her into be seen. She prior to that was taking pantoprazole 40 mg daily. She has a history of multiple EGDs in the past at [facility] where a large gastric polyps were removed. She has had 2 polyp clearance EGDs. She says that they have removed 60 or more polyps in the time she has seen them. At her last visit they removed 10 and told her she did not need to return. She has had an EGD for dysphagia here in 2022. At that time multiple gastric polyps were seen and she had hiatal hernia with esophagitis. There was no esophageal obstruction at that time. She does not take Plavix. As far as she knows she does not take mycophenolate mofetil. Those medications have been on her medication list in the past. She is not on any blood thinners. She states that she takes vitamins and stomach pills and that is about it. She has a history of breast cancer with surgery chemo and radiation as her treatment course. Review of Systems All systems reviewed & are unremarkable except as noted in HPI and below PFSH All Active Problems (Updated 10/18/24 @ 07:55 by Jyoti Berman MD) Hiatal hernia with GERD and esophagitis (Acute) Hypokalemia (Acute) Acute esophageal obstruction (Acute) Vision impairment (Chronic) Achilles tendon contracture, right (Acute) Capsulitis of right foot (Acute) Bursitis (Acute) Metatarsalgia, right foot (Acute) History of total right knee replacement (Acute 08/23/22) Intra-Op medial condylar fracture fixated with screws fixation. Anemia due to acute blood loss (Acute) Multiple gastric polyps (Chronic) Esophagitis (Acute) Hypomagnesemia (Acute) Multiple gastric polyps (Acute ~03/16/20) bleeding adn necrotic Discharge planning issues (Acute) DVT prophylaxis (Acute) H/O: CVA (cerebrovascular accident) (Chronic) Weight loss, non-intentional (Acute) Dysphagia (Chronic) Upper gastrointestinal bleeding (Acute) HTN (hypertension) (Chronic) GERD (gastroesophageal reflux disease) (Chronic) No history of formal endoscopic evaluation but empirically treated with AcipHex Medical History Dislocation of right shoulder joint >35 years ago Reduced in ER History of stroke >30 years ago; denies residual issues History of breast cancer (~2011) Treated with left breast lumpectomy and sentinel lymph node biopsies and subsequent radiation and chemotherapy; follow-up through [facility] Surgical History Status post laparotomy Performed for evaluation of possible ectopic but none found S/P breast lumpectomy (~2011) Family History Father No problems noted. Other Colon cancer Social History Smoking/Tobacco Use Status: Never Smoking risk assessment performed?: Yes Alcohol Intake: current Alcohol Intake frequency: 0-2 drinks per day Alcohol type: beer and wine Substance use type: does not use Housing: house What type of physical activity do you participate in: none Additional Social history: Unable to assess [facility] History History 0 Para Hx # Term Pregnancies Multiple births Hx # Pregnancies Ectopic pregnancies AB induced Hx Number of Living Children AB spontaneous Exam Narrative Exam Narrative: awake, NAD eomi, MMM midline trachea, neck is symmetric PULM: normal resp effort, equal chest rise with respiration, no wheezing audible CARDIAC: normal PMI, no jvd, regular rate, normal perfusion abdomen is nondistended. extremities are without deformity, normal movement of all four extremities speech is clear and coherent mood and affect are congruent, no focal neurological deficits skin without rash Results Last Vital Signs Temp 98.1 F 10/18/24 04:40 Pulse 76 10/18/24 04:40 Resp 16 10/18/24 04:40 BP 165/78 H 10/18/24 04:40 Pulse Ox 95 10/18/24 04:40 Labs 10/17/24 22:17 10/17/24 22:17 Labs: Laboratory Results - last 24 hr 10/17/24 10/17/24 10/18/24 22:17 23:04 01:16 WBC 9.47 RBC 4.65 Hgb 14.5 Hct 43.2 MCV 93 MCH 31.2 MCHC 33.6 RDW 13.0 Plt Count 224 MPV 9.8 Immature Gran % 0.3 Neutrophils % 63.0 Lymphocytes % 22.9 Monocytes % 12.1 Eosinophils % 1.0 Basophils % 0.7 Nucleated RBC % 0.0 Absolute Neutrophils 5.96 Absolute Lymphocytes 2.17 Absolute Monocytes 1.15 H Absolute Eosinophils 0.09 Absolute Basophils 0.07 PT 10.9 INR 1.1 APTT 23.9 Sodium 141 Potassium 3.2 L Chloride 103 Carbon Dioxide 25.5 Anion Gap 12.5 H BUN 11 Creatinine 0.6 Est GFR (CKD-EPI 2020) 92.39 Glucose 102 Calcium 10.0 Total Bilirubin 0.9 AST 29 ALT 28 Alkaline Phosphatase 160 H Troponin I 13 14 Cancelled Total Protein 7.6 Albumin 3.9 Lipase [address] scan report/results: report reviewed and image reviewed
[2024-10-18 08:08] LABS: HCT 44.5 % (36.0-46.0); HGB 14.8 g/dL (11.2-15.7); MCH 31.7 pg (27.0-33.0); MCHC 33.3 % (32.0-36.0); MCV 95 fL (80-95); MPV 9.7 fL (8.0-11.0); Platelet Count 216 10^3/uL (130-400); RBC 4.67 10^6/uL (3.93-5.22); RDW 13.2 % (11.7-14.6); RDW-SD 46.0 fL; WBC 8.15 10^3/uL (4.4-10.8)
[2024-10-18 08:25] LABS: ALT 24 U/L (14-59); AST 26 U/L (15-37); Albumin 3.8 g/dL (3.4-5.0); Alkaline Phosphatase 151 U/L (46-116); Anion Gap 12.6 mmol/L (3-11); BUN 11 mg/dL (7-18); Bilirubin, Total 0.9 mg/dL (0.2-1.0); CO2 26.4 mmol/L (21.0-32.0); Calcium 9.6 mg/dL (8.5-10.1); Chloride 105 mmol/L (98-107); Estimated GFR 96.54 (mL/min/1.73m2); Glucose 98 mg/dL (74-106); Magnesium 1.5 mg/dL (1.8-2.4); Potassium 3.1 mmol/L (3.5-5.1); Sodium 144 mmol/L (136-145); Total Protein 7.4 g/dL (6.4-8.2)
[2024-10-18 09:04] LABS: Glucose Negative (Negative)
--- NOTE | 2024-10-18 11:22 | W.ANESPRE ---
General Info Date of Service Date Performed: 10/18/24 Height: 4 ft 11 in Weight: 54.885 kg Body Mass Index (BMI): 24.4 Surgical Procedure: Operation Date: 10/18/24 12:05 Proposed Procedure Side Surgeon p Gastroscopy Jyoti Berman MD Meds Allergies and Home Medications Allergies Allergy/AdvReac Type Severity Reaction Status Date / Time Sulfa (Sulfonamide Allergy Other (See Unverified 10/17/24 22:04 Antibiotics) Comment) honey bees Allergy Severe Anaphylaxis Uncoded 10/17/24 22:04 Home Medication ?Medication ?Instructions ?Recorded cholecalciferol (vitamin D3) 50 50 mcg PO DAILY 07/14/20 mcg (2,000 unit) capsule epinephrine 0.3 mg/0.3 mL 0.3 mg IM ONCE PRN 07/14/20 injection, auto-injector acetaminophen 500 mg tablet 1,000 mg (2 x 500 mg) PO Q8H PRN 08/23/22 pain #90 tabs aspirin 81 mg tablet,delayed 81 mg PO DAILY 08/25/23 release atorvastatin 40 mg tablet 40 mg PO DAILY 08/25/23 mycophenolate mofetil 500 mg tablet 1,500 mg PO BID 08/25/23 colchicine 0.6 mg tablet 0.6 mg PO DAILY 05/28/24 cyanocobalamin (vitamin B-12) 1,000 mcg sublingual DAILY 05/28/24 1,000 mcg sublingual tablet folic acid 1 mg tablet 1 mg PO DAILY 05/28/24 pantoprazole 40 mg tablet,delayed 40 mg PO DAILY 05/28/24 release potassium chloride 20 mEq 20 meq PO DAILY 05/28/24 tablet,extended release pyridoxine (vitamin B6) 25 mg 25 mg PO DAILY 05/28/24 tablet (Vitamin B-6) vitamin A 2,400 mcg capsule 2,400 mcg PO DAILY 05/28/24 famotidine 20 mg tablet 20 mg PO DAILY 10/17/24 omeprazole 40 mg capsule,delayed 40 mg PO DAILY 10/17/24 release Current Visit Medications: Current Medications Generic Name Dose Route Start Last Admin Trade Name Freq PRN Reason Stop Dose Admin Heparin Sodium (Porcine) 5,000 units 10/18/24 06:00 10/18/24 06:39 Heparin 5,000 Units/Ml Vial SC Not Given Q8H HERACLIO Sodium Chloride 1,000 mls @ 125 mls/hr 10/18/24 05:00 10/18/24 05:51 Saline 1000ml Bag IV 125 mls/hr INFUSION HERACLIO Administration Pantoprazole Sodium 40 mg 10/18/24 06:00 10/18/24 06:44 Pantoprazole 40 Mg Vial IVP 40 mg Q12H HERACLIO Administration Sodium Chloride 0 ml 10/17/24 22:16 10/18/24 06:45 Normal Saline Flush 10 Ml Syr IVP 10 ml PRN PRN Administration Sodium Chloride 0 ml 10/18/24 08:30 10/18/24 09:45 Normal Saline Flush 10 Ml Syr IVP Not Given BID HERACLIO Sodium Chloride 0 ml 10/17/24 22:16 Normal Saline 10 Ml Vial IJ DIRECTED PRN PFSH Active Problems Active Problems: Problem Status Onset Code Hiatal hernia with GERD and esophagitis Acute K44.9, K21.00 Hypokalemia Acute E87.6 Acute esophageal obstruction Acute K22.2 Vision impairment Chronic H54.7 Achilles tendon contracture, right Acute M67.01 Capsulitis of right foot Acute M77.8 Bursitis Acute M71.9 Metatarsalgia, right foot Acute M77.41 History of total right knee replacement Acute 08/23/22 Z96.651 Anemia due to acute blood loss Acute D62 Multiple gastric polyps Chronic K31.7 Esophagitis Acute K20.90 Hypomagnesemia Acute E83.42 Nonsustained paroxysmal supraventricular tachycardia Resolved I47.1 Multiple gastric polyps Acute ~12 K31.7 Discharge planning issues Acute Z02.9 DVT prophylaxis Acute Z29.9 H/O: CVA (cerebrovascular accident) Chronic Z86.73 Weight loss, non-intentional Acute R63.4 Dysphagia Chronic R13.10 Upper gastrointestinal bleeding Acute K92.2 HTN (hypertension) Chronic GERD (gastroesophageal reflux disease) Chronic Medical History Medical History Dislocation of right shoulder joint >35 years ago Reduced in ER History of stroke >30 years ago; denies residual issues History of breast cancer (~2011) Treated with left breast lumpectomy and sentinel lymph node biopsies and subsequent radiation and chemotherapy; follow-up through [facility] Surgical History Surgical History Status post laparotomy Performed for evaluation of possible ectopic but none found S/P breast lumpectomy (~2011) Tobacco Smoking/Tobacco Use Status: Never Alcohol Alcohol Intake: current Alcohol intake frequency: 0-2 drinks per day Alcohol type: beer and wine Substance Use Substance use type: does not use Prental History History 0 Para Hx # Term Pregnancies Multiple births Hx # Pregnancies Ectopic pregnancies AB induced Hx Number of Living Children AB spontaneous Vital Signs and Lab Results Vital Signs Most Recent Vital Signs in EMR: Most Recent Vital Signs Temp Pulse Resp BP Pulse Ox 36.0 C L 60 16 153/77 H 100 10/18/24 11:18 10/18/24 11:18 10/18/24 11:18 10/18/24 11:18 10/18/24 11:18 Lab Results 10/18/24 07:55 10/18/24 07:55 Complete Blood Count: WBC, (4.4-10.8) 8.15 10^3/uL Today, 07:55 RBC, (3.93-5.22) 4.67 10^6/uL Today, 07:55 Hgb, (11.2-15.7) 14.8 g/dL Today, 07:55 Hct, (36.0-46.0) 44.5 % Today, 07:55 Plt Count, (130-400) 216 10^3/uL Today, 07:55 Complete Metabolic Panel: Sodium, (136-145) 144 mmol/L Today, 07:55 Potassium, (3.5-5.1) 3.1 mmol/L L Today, 07:55 Chloride, (98-107) 105 mmol/L Today, 07:55 Carbon Dioxide, (21.0-32.0) 26.4 mmol/L Today, 07:55 BUN, (7-18) 11 mg/dL Today, 07:55 Creatinine, (0.55-1.02) 0.5 mg/dL L Today, 07:55 Est GFR (CKD-EPI 2020), (mL/min/1.73m2) 96.54 Today, 07:55 Magnesium, (1.8-2.4) 1.5 mg/dL L Today, 07:55 Calcium, (8.5-10.1) 9.6 mg/dL Today, 07:55 Albumin, (3.4-5.0) 3.8 g/dL Today, 07:55 Glucose, (74-106) 98 mg/dL Today, 07:55 Liver Function Panel: ALT, (14-59) 24 U/L Today, 07:55 AST, (15-37) 26 U/L Today, 07:55 Coagulation Panel: INR, (0.9-1.1) 1.1 10/17/24, 22:17 PT, (9.1-11.1) 10.9 sec 10/17/24, 22:17 APTT, (20.6-30.2) 23.9 sec 10/17/24, 22:17 Cardiac Panel: Troponin I, (<or=51) 14 ng/L 10/17/24 Pancreas Panel: Lipase, (<78) 22 U/L 10/17/24, 22:17 Imaging and Studies Imaging and Studies Study information below may be from another EMR and interpreted by another provider. Please see original notes in EMR for more complete details. EKG Summary: DATE/TIME OF SERVICE: 07/14/20806 : 1945[facility]ING [facility] Exam: Resting ECG Patient Location: O HR:68 bpm ECG Measurements Heart Rate 68 AXIS NH 142 P 30 QRSd 80 QRS -24 QT 406 T-3 QTc 432 Conclusion Sinus rhythm...normal P axis, V-rate 50- 99 Atrial premature complex... low voltage Echocardiogram Summary: Date of study: 01/31/2018 Transthoracic Echocardiography M-mode, complete 2D, complete spectral Doppler, and color Doppler *STUDY CONCLUSIONS* Summary: 1. Left ventricle: The cavity size was normal. Wall thickness was normal. Systolic function was normal. The estimated ejection fraction was 60-65%. Wall motion was normal; there were no regional wall motion abnormalities. Some parameters suggest diastolic dysfunction. 2. Left atrium: The atrium was mildly dilated. 3. Right ventricle: The cavity size was normal. Wall thickness was normal. Systolic function was normal. Anesthesia Assessment and Plan Anesthesia History Personal History: No History of Anesthesia Complications Family History: No Family History of Anesthesia Complications Exercise Tolerance Exercise Tolerance: Metabolic Equivalents>4 Pertinent Negatives Pertinent Negatives: No Major Cardiovascular Symptoms or Complaints, No Major Pulmonary Symptoms or Complaints and Other (Stroke approx 30 yrs ago, no residual) Cardiac & Pulmonary Exam Cardiac Exam: Normal S1/S2 Heart Sounds Pulmonary Exam: Clear Bilateral Breath Sounds Implantable Cardiac Device Does patient have a Pacemaker or an ICD?: No Airway Exam Known Difficult Airway: No Mallampati Class: 2 Mouth Opening: Normal (> 3cm) Thyromental Distance: Less than 3 cm Neck Range of Motion: Full ROM Neck Circumference: Normal Teeth Condition: Normal Dentition ASA Classification ASA Score: ASA 3 Emergency Case?: Yes NPO Status NPO Status: Full Stomach Anesthesia Plan Resuscitation Status: Full Code Anesthesia Technique: General Anesthesia Airway Planned: Endotracheal Tube Monitors Used: Standard Monitors Preoperative Comments:: Decreased vision secondary to chemo Patient with full esophagus on CT
[2024-10-18] MEDS: Lactated Ringers 1,000 ML 30 ML IV (12:23)
--- NOTE | 2024-10-18 12:58 | W.PM.ENDDOP ---
Date of service: 10/18/24 Time of Service: 12:58 Endoscopy Report DATE OF PROCEDURE: 10/18/24 PRE-OP DIAGNOSIS: esophageal obstruction POST-OP DIAGNOSIS: same (Esophageal obstruction due to distal esophageal stricture) PROCEDURE: EGD SURGEON: Jyoti Berman ANESTHESIA TYPE: General LMA/ETT ESTIMATED BLOOD LOSS: 0 PATHOLOGY: none sent COMPLICATIONS: None DISPOSITION: PACU INDICATIONS: Esophageal obstruction FINDINGS: Distal esophageal stricture, too narrow for endoscope to pass through. Unable to dilate blindly. PROCEDURE DESCRIPTION: 79-year-old old female admitted with esophageal obstruction. She has a history of 2 days of acute intolerance to any oral intake. She has a 4-week history of progressive dysphagia leading to complete oral intolerance of food and liquid. CT imaging showed distal esophagus obstruction and a dilated fluid-filled esophagus. She has a history of hiatal hernia with GERD and esophagitis, and a benign gastric polyposis with history of removal of over 60 large sized gastric polyps according to the patient. EGD is indicated for evaluation and also possible dilation. Informed consent was obtained and the patient was taken to the procedure room. General anesthesia was induced with an endotracheal tube. Timeout was performed. And ended scope was passed through a bite block into the esophagus. A large amount of saliva was suctioned clear, and small amounts of old food particulate were noted. The gastroesophageal junction was identified at 37 cm from the teeth. It was tightly strictured down and the endoscope was not able to be pushed through. Clanton insufflation did not open or expand the entry. The stomach beyond the GE junction could not be visualized at all. There was a small polypoid flap visible and present at the GE junction it was approximately 4 mm in size and was not causing obstruction. There is no clear esophageal mass lesion. There is suggestion of possible esophageal ulceration below the level of the visualized esophagus. A Vann net was used to remove food particulate from the distal esophagus. The Vann net could not safely be passed through the stricture as there was no clear visualization beyond the folds of the esophagus at the stricture level. Safe dilation could not be performed with the available balloon dilators. The esophagus was decompressed and emptied out with suction. The endoscope was removed. An awake extubation was performed to prevent aspiration with extubation. No complications Assessment and plan; I recommend a Protonix drip as this appears most consistent with a peptic stricture. Dilation of the esophageal stricture could not be performed safely. The only dilator available to me is a 10 mm balloon dilator that I do not feel safe passing through the stricture to dilate it. The patient has a known hiatal hernia and gastric polyposis and perforation of the herniated portion of the stomach could occur with blind passage of the balloon. Savory dilators could be used if available in small sizes these are not available to me. Options for him next Epson management include Protonix drip for 48 to 72 hours then repeat endoscopic attempt by me to dilate the stricture. Alternatively the patient could be sent to a tertiary center where gastroenterology may be able to intervene with more advanced endoscopy tools available. Fluoroscopic guided dilation may also be performed and that is not available to me. I will discuss this with the hospitalist and determine the best next steps.
--- NOTE | 2024-10-18 13:26 | W.ANESPOSTOP ---
Postoperative Evaluation Date, Time and Location Date Performed: 10/18/24 Time Performed: 13:26 Patient Location: PACU Vital Signs Most Recent Imported Vital Signs: Most Recent Vital Signs Temp Pulse Resp BP Pulse Ox 36.2 C L 67 17 93/76 L 96 10/18/24 13:19 10/18/24 13:21 10/18/24 13:21 10/18/24 13:21 10/18/24 13:21 Pain Score Most Recent Pain Score: Most Recent Pain Score Pain Level [Anterior Medial 8 10/18/24 04:44 Chest] Pain Level 0 10/18/24 13:19 Assessment Mental Status: Awake (Alert & Oriented to Patient Baseline) Airway and Respiratory Function: Patent airway with normal (patient baseline) respiratory exam Cardiovascular Function: Hemodynamically Stable Hydration Status: Adequately Hydrated Nausea & Vomiting: No Nausea or Vomiting Pain: Pt. Denies Any Pain Peripheral Nerve Block: Patient did not receive a nerve block
--- NOTE | 2024-10-18 13:41 | INITIAL_ITS ---
Date of service: 10/18/24 Time of Service: 14:34 Care Management Initial Assmt Initial Assessment Reason for Hospitalization: Acute esophageal obstruction with dysphagia Functional Status/Living Situation Patient Presentation: Desirae was lying in bed and just come back to the unit following an EDG. Desirae presented to the ED for evaluation of burning sensation in chest. She is a pleasant lady who engages in conversation easily. Desirae is living in [place] with her Ortega in their single family home. Her and Ortega have been for 55 years; They have no children, but are supported by his family. Desirae has a neighbor (Scot), who has been very supportive to both her an Ortega for many years; Desirae considers Scot to be her adopted son and cares deeply for him. In their home, they have 3 flights of stairs but 3 steps to get inside. Desirae states, she stays on one floor, but Ortega can utilize the stairs. At baseline, Desirae states she can climb the stairs to enter the home, and she preforms her ADL's independently. She does not drive; Ortega is her primary source of transportation. Per Desirae, she does not use an assistive device at this time, but when she 'goes out', she holds onto Ortega for stability. Per Desirae, she attends exercise class 2x/wk at the [facility] in [place]. Desirae requests her be present when providers explain her plan of care; CM communicated this to the Hospitalist and Surgeon. CM requested palliative consult, provider wishes to defer for now, as she may be transfered. CM will continue to follow Town of Residence: [place] Resides with: Spouse (Ortega) Significant Other/Family: Local (Husbands brother lives near by ) Caregiver/Guardian: Her and Ortega support eachother Natural Supports: Family Employment Status: Retired ([employer] for 19 years. ) Instrumental Activities of Daily Living (ADLs): Independent (other than driving, and flights of stairs) Activities/Hobbies/SocialSupport: Enjoys traveling, socializing, and spending time with Ortega. Desirae is suppose to fly to [place] 11/10/24 for a conference. Medications Medication Management: No Issues/Barriers identified Physical Functioning/Mobility Assistive Device: has cane and walking stick in the home, but states she does not use them. Advance Directives Advance Directives: Do you have an Advance Directive: Y , 15:41 AD On File at [facility]: N 08/22/12, 20:36 Date Asked 10/17/24 10/17/24, 21:59 AD Date Reviewed COLST On File at [facility] COLST Date Scanned Code Status Resuscitation Status Full Code Portal Pt does not currently have a portal and education provided: Yes Insurance Coverage/Financial Issues Insurance: BC/BS [facility] - [id number] Care Team Visit Care Team Role Provider Type Mason Schulte MD MD [facility] STAFF PHYSICIAN Kleber Rico Primary Care Provider NON-[facility] STAFF PHYSICIAN Jyoti Berman MD Other Providers [facility] STAFF PHYSICIAN Adrian Kimball DO Emergency Provider [facility] STAFF PHYSICIAN Ramon Fuentes Admit Provider [facility] STAFF PHYSICIAN Attending Provider Discharge Potential Discharge Needs: PCP F/U Appt Anticipated Barriers to Discharge: Medical Status Patient/Family Education Needs: Review discharge instructions, discuss Ask Me Three Transportation: Private vehicle Plan: Desirae underwent an EDG today. Anticipate Desirae will discharge home possibly with new services (may benefit from PT consult) vs. being transferred to a tertiary care facility to receive a higher level of care. Regardless, she should follow up with her PCP, surgical services, and plan of care. Transport pending on plan at discharge. CM will continue to follow. Social Determinants of Health Screening Social Determinants of health last assessed in clinic: 10/18/24 Will the Patient Participate in the Screening?: Declined to provide Do you worry about having a steady place to live?: no Problems where you live: no known problems In the past 12 months, have you had to go without electric, gas, oil or water in your home?: no 1. Within the past 12 months, we worried whether our food would run out before we got money to buy more.: Never true 2. Within the past 12 months, the food we bought just didn't last and we didn't have money to get more.: Never true Has lack of transportation kept you from medical appointments or from doing things needed for daily living?: no Has anyone in your life made you feel unsafe or unsupported?: no How hard is it for you to pay for the very basics like food, housing, medical care, and heating? Would you say it is:: Not hard at all Do you want help finding or keeping work or a job?: I do not need or want help If for any reason you need help with day-to-day activities such as bathing, preparing meals, shopping, managing finances, etc., do you get the help you need?: I don?t need any help How often do you feel lonely or isolated from those around you?: Never Do you speak a language other than German at home?: No Does the patient want assistance with any of the above?: No PFSH All Active Problems (Updated 10/18/24 @ 07:55 by Jyoti Berman MD) Hiatal hernia with GERD and esophagitis (Acute) Hypokalemia (Acute) Acute esophageal obstruction (Acute) Vision impairment (Chronic) Achilles tendon contracture, right (Acute) Capsulitis of right foot (Acute) Bursitis (Acute) Metatarsalgia, right foot (Acute) History of total right knee replacement (Acute 08/23/22) Intra-Op medial condylar fracture fixated with screws fixation. Anemia due to acute blood loss (Acute) Multiple gastric polyps (Chronic) Esophagitis (Acute) Hypomagnesemia (Acute) Multiple gastric polyps (Acute ~03/16/20) bleeding adn necrotic Discharge planning issues (Acute) DVT prophylaxis (Acute) H/O: CVA (cerebrovascular accident) (Chronic) Weight loss, non-intentional (Acute) Dysphagia (Chronic) Upper gastrointestinal bleeding (Acute) HTN (hypertension) (Chronic) GERD (gastroesophageal reflux disease) (Chronic) No history of formal endoscopic evaluation but empirically treated with AcipHex Medical History Dislocation of right shoulder joint >35 years ago Reduced in ER History of stroke >30 years ago; denies residual issues History of breast cancer (~2011) Treated with left breast lumpectomy and sentinel lymph node biopsies and subsequent radiation and chemotherapy; follow-up through [facility] Surgical History Status post laparotomy Performed for evaluation of possible ectopic but none found S/P breast lumpectomy (~2011) Family History Father No problems noted. Other Colon cancer Social History Smoking/Tobacco Use Status: Never Smoking risk assessment performed?: Yes Alcohol Intake: current Alcohol Intake frequency: 0-2 drinks per day Alcohol type: beer and wine Substance use type: does not use Housing: house What type of physical activity do you participate in: none Additional Social history: [facility] History History 0 Para Hx # Term Pregnancies Multiple births Hx # Pregnancies Ectopic pregnancies AB induced Hx Number of Living Children AB spontaneous Readmission Within the Past 30 Days Yes or No: No
[2024-10-18] MEDS: PANTOPRAZOLE 80 MG in Normal Saline 100 ML 10 MG IV (17:07)
[2024-10-18] MEDS: ACETAMINOPHEN 1,000 MG/100 ML BAG 400 MG IVPB (18:14)
[2024-10-18] MEDS: Heparin 5,000 UNITS/ML VIAL 5000 UNITS SC (21:39)
[2024-10-19] VITALS (8 sets, daily range): BP systolic 87–158; BP diastolic 68–85; PULSE 58–81; RESP 15–20; TEMP 35.8–37; O2SAT 94–99
[2024-10-19] MEDS: ACETAMINOPHEN 1,000 MG/100 ML BAG 400 MG IVPB ×3 (01:37→18:20)
[2024-10-19] MEDS: Normal Saline Flush 10 ML SYR IVP ×6 (01:38→21:30)
[2024-10-19] MEDS: Normal Saline 1,000 ML 125 ML IV (03:00)
[2024-10-19] MEDS: PANTOPRAZOLE 80 MG in Normal Saline 100 ML 10 MG IV ×2 (03:16→16:30)
[2024-10-19] MEDS: Heparin 5,000 UNITS/ML VIAL 5000 UNITS SC ×3 (05:55→21:28)
[2024-10-19 06:27] LABS: HCT 41.3 % (36.0-46.0); HGB 13.4 g/dL (11.2-15.7); MCH 31.1 pg (27.0-33.0); MCHC 32.4 % (32.0-36.0); MCV 96 fL (80-95); MPV 10.3 fL (8.0-11.0); Platelet Count 183 10^3/uL (130-400); RBC 4.31 10^6/uL (3.93-5.22); RDW 13.1 % (11.7-14.6); RDW-SD 46.3 fL; WBC 8.17 10^3/uL (4.4-10.8)
[2024-10-19 06:52] LABS: ALT 21 U/L (14-59); AST 20 U/L (15-37); Albumin 3.1 g/dL (3.4-5.0); Alkaline Phosphatase 119 U/L (46-116); Anion Gap 13.2 mmol/L (3-11); BUN 5 mg/dL (7-18); Bilirubin, Total 0.8 mg/dL (0.2-1.0); CO2 22.8 mmol/L (21.0-32.0); Calcium 8.3 mg/dL (8.5-10.1); Chloride 106 mmol/L (98-107); Estimated GFR 101.87 (mL/min/1.73m2); Glucose 69 mg/dL (74-106); Magnesium 1.2 mg/dL (1.8-2.4); Potassium 3.0 mmol/L (3.5-5.1); Sodium 142 mmol/L (136-145); Total Protein 6.2 g/dL (6.4-8.2)
[2024-10-19] MEDS: POTASSIUM CHLORIDE/D5-0.45NACL 1,000 ML 125 MEQ IV ×2 (09:23→18:33)
[2024-10-19] MEDS: MAGNESIUM SULFATE 4 GM/100 ML BAG IV_INF (09:28)
[2024-10-19] MEDS: POTASSIUM CHLORIDE 20 MEQ/100 ML BAG 50 MEQ IV_INF ×2 (09:45→11:35)
--- NOTE | 2024-10-19 16:17 | W.PM.PROGNOT ---
Date of Service Date of service: 10/19/24 Time of Service: 16:17 Assessment and Plan Assessment and plan (1) Acute esophageal obstruction: Start date: 10/18/24 Status: Acute Assessment and plan: Stricture just past gastroesophageal junction seen on 10/18 EGD Plan per surgery is NPO with pantoprazole drip over the weekend to address repeat EGD 10/21. (2) Multiple gastric polyps: Status: Chronic Assessment and plan: Patient at risk for malignancy in her stomach or esophagus. Plan to repeat EGD as above. (3) Hypokalemia: Start date: 10/18/24 Status: Acute Assessment and plan: a/w hypomagnesemia. Chronically on potassium supplement. Replace both IV for now. (4) HTN (hypertension): Status: Chronic Assessment and plan: Intermittently elevated, will not treat unless symptomatic. (5) DVT prophylaxis: Status: Acute Assessment and plan: SQ heparin Subjective Subjective Patient reports: no new complaints and voiding w/o difficulty; denies diarrhea, shortness of breath or fever Interval history since last seen: Events: EGD with Dr. Berman 10/18, LE stricture, couldn't dilate, started on pantoprazole drip. Still getting heart burn that comes and goes. Pain is better than when she came in. Some nausea. has not been vomiting. Feels okay overall. Exam Narrative Exam Narrative: General: She is alert and oriented, NAD Lungs: Normal aeration and clear to auscultation and percussion. No expiratory wheeze. Heart: Regular rate and rhythm with no murmurs gallops appreciated. Abdomen: +BS, soft, mild epigastric tenderness, NT/ND Extremities without clubbing, cyanosis or pitting edema. Good capillary refill. Objective Last Vital Signs Temp 36.3 C L 10/19/24 15:21 Pulse 70 10/19/24 15:21 Resp 15 10/19/24 15:21 BP 134/68 10/19/24 15:21 Pulse Ox 98 10/19/24 15:21 Laboratory Results - last 24 hr 10/19/24 06:02 WBC 8.17 RBC 4.31 Hgb 13.4 Hct 41.3 MCV 96 H MCH 31.1 MCHC 32.4 RDW 13.1 Plt Count 183 MPV 10.3 Sodium 142 Potassium 3.0 L Chloride 106 Carbon Dioxide 22.8 Anion Gap 13.2 H BUN 5 L Creatinine 0.4 L Est GFR (CKD-EPI 2020) 101.87 Glucose 69 L Calcium 8.3 L Magnesium 1.2 L Total Bilirubin 0.8 AST 20 ALT 21 Alkaline Phosphatase 119 H Total Protein 6.2 L Albumin 3.1 L PAWSS Have you Been Recently Intoxicated or Drunk Within the Last 30 days?: No Have you Ever Experienced Previous Episodes of Alcohol Withdrawal?: No Have you ever Experienced Withdrawal Seizures?: No Have you ever Experienced Delirium Tremens(DT)s?: No Have you ever undergone Alcohol Rehabilitation Treatment (i.e, inpt ot outpatient treatment programs)?: No Have you ever Experienced Blackouts?: No Have you ever Combined Alcohol with other Downers within the last 90 days?: No Have you ever Combined Alcohol with any other Substance of Abuse during the last 90 days?: No Positive Blood Alcohol level on Presentation? [PCS.BAL]: No Evidence of Increased Autonomic Activity (i.e. HR>120, tremor, sweating, agitation, nausea)?: No Result: 0 Time Spent with Patient Time Spent with Patient: 35-49 minutes Time was spent: preparing to see the patient(eg.review tests), obtaining and/or reviewing separately otained hiistory, ordering medications,tests, procedures, referring, communicating with other health critical care technician, indepentently interpreting results, counseling the patient and care coordination
[2024-10-19] MEDS: MORPHine 2 MG/ML SYR IVP (17:18)
[2024-10-20] MEDS: PANTOPRAZOLE 80 MG in Normal Saline 100 ML 10 MG IV ×2 (02:20→14:14)
[2024-10-20] MEDS: POTASSIUM CHLORIDE/D5-0.45NACL 1,000 ML 125 MEQ IV ×3 (02:33→19:23)
[2024-10-20 03:38] VITALS: BP 131/74; PULSE 58; RESP 18; TEMP 35.8; O2SAT 94
[2024-10-20] MEDS: MORPHine 2 MG/ML SYR IVP ×4 (04:53→20:21)
[2024-10-20] MEDS: Heparin 5,000 UNITS/ML VIAL 5000 UNITS SC (04:53)
[2024-10-20 08:02] VITALS: BP 148/70; PULSE 59; RESP 16; TEMP 36.5; O2SAT 96
[2024-10-20 08:35] LABS: Anion Gap 10.5 mmol/L (3-11); BUN 2 mg/dL (7-18); CO2 23.5 mmol/L (21.0-32.0); Calcium 9.1 mg/dL (8.5-10.1); Chloride 106 mmol/L (98-107); Estimated GFR 96.54 (mL/min/1.73m2); Glucose 130 mg/dL (74-106); Magnesium 1.6 mg/dL (1.8-2.4); Potassium 4.3 mmol/L (3.5-5.1); Sodium 140 mmol/L (136-145)
[2024-10-20] MEDS: Normal Saline Flush 10 ML SYR IVP ×3 (10:12→20:21)
[2024-10-20 11:34] VITALS: BP 132/64; PULSE 69; RESP 17; TEMP 36.6; O2SAT 96
--- NOTE | 2024-10-20 12:14 | W.PM.PROGNOT ---
Date of Service Date of service: 10/20/24 Time of Service: 12:14 Assessment and Plan Assessment and plan (1) Hiatal hernia with GERD and esophagitis: Status: Acute Assessment and plan: She seems to be tolerating the Protonix infusion without any issues, and I do not think there is anything else to change for today. Were planning for repeat trip for another EGD tomorrow, and I would expect attempted dilation at that time. Subjective Subjective Interval history since last seen: Desirae did pretty well through yesterday, although she did have a few episodes of pain and low-volume emesis overnight. The pain was better controlled with morphine. She was able to get some sleep, and aside from being hungry she feels pretty well this morning. Exam GI Other: Abdomen remains soft, nontender and not at all distended. Objective Last Vital Signs Temp 97.9 F 10/20/24 11:34 Pulse 69 10/20/24 11:34 Resp 17 10/20/24 11:34 BP 132/64 10/20/24 11:34 Pulse Ox 96 10/20/24 11:34 Laboratory Results - last 24 hr 10/20/24 07:58 Sodium 140 Potassium 4.3 D Chloride 106 Carbon Dioxide 23.5 Anion Gap 10.5 BUN 2 L Creatinine 0.5 L Est GFR (CKD-EPI 2020) 96.54 Glucose 130 H Calcium 9.1 Magnesium 1.6 L PAWSS Have you Been Recently Intoxicated or Drunk Within the Last 30 days?: No Have you Ever Experienced Previous Episodes of Alcohol Withdrawal?: No Have you ever Experienced Withdrawal Seizures?: No Have you ever Experienced Delirium Tremens(DT)s?: No Have you ever undergone Alcohol Rehabilitation Treatment (i.e, inpt ot outpatient treatment programs)?: No Have you ever Experienced Blackouts?: No Have you ever Combined Alcohol with other Downers within the last 90 days?: No Have you ever Combined Alcohol with any other Substance of Abuse during the last 90 days?: No Positive Blood Alcohol level on Presentation? [PCS.BAL]: No Evidence of Increased Autonomic Activity (i.e. HR>120, tremor, sweating, agitation, nausea)?: No Result: 0 Time Spent with Patient Time Spent with Patient: <25 minutes Time was spent: preparing to see the patient(eg.review tests), indepentently interpreting results and counseling the patient
--- NOTE | 2024-10-20 12:35 | PGE_ITS ---
Date of Service Date of service: 10/20/24 Time of Service: 12:35 Assessment and Plan Assessment and plan (1) Acute esophageal obstruction: Start date: 10/18/24 Status: Acute Assessment and plan: Stricture just past gastroesophageal junction seen on 10/18 EGD Plan per surgery is NPO with pantoprazole drip over the weekend to address r epeat EGD 10/21. (2) Multiple gastric polyps: Status: Chronic Assessment and plan: Patient at risk for malignancy in her stomach or esophagus. Liver masses add to this concern. Plan to repeat EGD 10/20. Hopefully any abnormalities can be biopsied then as well. (3) Liver masses: Status: Acute Assessment and plan: Discussed with the patient and her today, including concern for malignancy. Also a large lymph node on CT. If cancer found on endoscopy, more likely the liver lesions would be metastases. If no cancer on EGD, would consider biopsy of liver lesions or at least liver MRI to start as the MRI itself can be diagnostic for HCC. (4) Hypokalemia: Start date: 10/18/24 Status: Acute Assessment and plan: a/w hypomagnesemia. Chronically on potassium supplement. Replace both IV for now. (5) DVT prophylaxis: Status: Acute Assessment and plan: SQ heparin Subjective Subjective Patient reports: feels better and voiding w/o difficulty; denies bowel movement, nausea, vomiting, shortness of breath or fever Interval history since last seen: Feels a little better. Still getting intermittent heartburn that feels like spasms, but less. Morphine did help. Exam Narrative Exam Narrative: General: She is alert and oriented, NAD Lungs: Normal aeration and clear to auscultation and percussion. No expiratory wheeze. Heart: Regular rate and rhythm with no murmurs gallops appreciated. Abdomen: +BS, soft, mild epigastric tenderness, NT/ND Extremities without clubbing, cyanosis or pitting edema. Good capillary refill. Objective Last Vital Signs Temp 36.6 C 10/20/24 11:34 Pulse 69 10/20/24 11:34 Resp 17 10/20/24 11:34 BP 132/64 10/20/24 11:34 Pulse Ox 96 10/20/24 11:34 Laboratory Results - last 24 hr 10/20/24 07:58 Sodium 140 Potassium 4.3 D Chloride 106 Carbon Dioxide 23.5 Anion Gap 10.5 BUN 2 L Creatinine 0.5 L Est GFR (CKD-EPI 2020) 96.54 Glucose 130 H Calcium 9.1 Magnesium 1.6 L PAWSS Have you Been Recently Intoxicated or Drunk Within the Last 30 days?: No Have you Ever Experienced Previous Episodes of Alcohol Withdrawal?: No Have you ever Experienced Withdrawal Seizures?: No Have you ever Experienced Delirium Tremens(DT)s?: No Have you ever undergone Alcohol Rehabilitation Treatment (i.e, inpt ot outpatient treatment programs)?: No Have you ever Experienced Blackouts?: No Have you ever Combined Alcohol with other Downers within the last 90 days?: No Have you ever Combined Alcohol with any other Substance of Abuse during the last 90 days?: No Positive Blood Alcohol level on Presentation? [PCS.BAL]: No Evidence of Increased Autonomic Activity (i.e. HR>120, tremor, sweating, agitation, nausea)?: No Result: 0 Time Spent with Patient Time Spent with Patient: 35-49 minutes Time was spent: preparing to see the patient(eg.review tests), obtaining and/or reviewing separately otained hiistory, ordering medications,tests, procedures, referring, communicating with other health technical healthcare consultant, indepentently interpreting results, counseling the patient and care coordination
[2024-10-20 15:16] VITALS: BP 153/96; PULSE 68; RESP 14; TEMP 36.2; O2SAT 97
[2024-10-20 19:25] VITALS: BP 148/86; PULSE 63; RESP 16; TEMP 36; O2SAT 98
[2024-10-21] VITALS (59 sets, daily range): BP systolic 123–149; BP diastolic 62–90; PULSE 60–118; RESP 14–25; TEMP 35.2–36.7; O2SAT 93–99; BMI 26.2
[2024-10-21] MEDS: PANTOPRAZOLE 80 MG in Normal Saline 100 ML 10 MG IV ×2 (01:08→10:58)
[2024-10-21] MEDS: POTASSIUM CHLORIDE/D5-0.45NACL 1,000 ML 125 MEQ IV ×2 (03:24→11:01)
[2024-10-21] MEDS: Normal Saline Flush 10 ML SYR IVP ×4 (08:29→22:10)
[2024-10-21] MEDS: MORPHine 2 MG/ML SYR IVP ×3 (08:35→21:27)
--- NOTE | 2024-10-21 11:53 | W.ANESPRE ---
General Info Date of Service Date Performed: 10/21/24 Height: 4 ft 11 in Weight: 58.967 kg Body Mass Index (BMI): 26.2 Surgical Procedure: Operation Date: 10/18/24 12:05 Proposed Procedure Side Surgeon p Gastroscopy Jyoti Berman MD Actual Procedure Side Surgeon p Gastroscopy Not Applicable Jyoti Berman MD Pre-Op Diagnosis Post-Op Diagnosis Acute esophageal obstruction with dysphagia Esophageal obstruction and esophageal stricture Operation Date: 10/21/24 10:35 Proposed Procedure Side Surgeon p Gastroscopy with Dilation Jyoti Berman MD Actual Procedure Side Surgeon p Gastroscopy with Dilation Not Applicable Jyoti Berman MD Pre-Op Diagnosis Post-Op Diagnosis Acute esophageal obstruction with dysphagia Meds Allergies and Home Medications Allergies Allergy/AdvReac Type Severity Reaction Status Date / Time Sulfa (Sulfonamide Allergy Other (See Unverified 10/17/24 22:04 Antibiotics) Comment) honey bees Allergy Severe Anaphylaxis Uncoded 10/17/24 22:04 Home Medication ?Medication ?Instructions ?Recorded cholecalciferol (vitamin D3) 50 50 mcg PO DAILY 07/14/20 mcg (2,000 unit) capsule epinephrine 0.3 mg/0.3 mL 0.3 mg IM ONCE PRN 07/14/20 injection, auto-injector acetaminophen 500 mg tablet 1,000 mg (2 x 500 mg) PO Q8H PRN 08/23/22 pain #90 tabs aspirin 81 mg tablet,delayed 81 mg PO DAILY 08/25/23 release atorvastatin 40 mg tablet 40 mg PO DAILY 08/25/23 mycophenolate mofetil 500 mg tablet 1,500 mg PO BID 08/25/23 colchicine 0.6 mg tablet 0.6 mg PO DAILY 05/28/24 cyanocobalamin (vitamin B-12) 1,000 mcg sublingual DAILY 05/28/24 1,000 mcg sublingual tablet folic acid 1 mg tablet 1 mg PO DAILY 05/28/24 pantoprazole 40 mg tablet,delayed 40 mg PO DAILY 05/28/24 release potassium chloride 20 mEq 20 meq PO DAILY 05/28/24 tablet,extended release pyridoxine (vitamin B6) 25 mg 25 mg PO DAILY 05/28/24 tablet (Vitamin B-6) vitamin A 2,400 mcg capsule 2,400 mcg PO DAILY 05/28/24 famotidine 20 mg tablet 20 mg PO DAILY 10/17/24 omeprazole 40 mg capsule,delayed 40 mg PO DAILY 10/17/24 release Current Visit Medications: Current Medications Generic Name Dose Route Start Last Admin Trade Name Debbie PRN Reason Stop Dose Admin Heparin Sodium (Porcine) 5,000 units 10/18/24 06:00 10/21/24 05:11 Heparin 5,000 Units/Ml Vial SC Not Given Q8H HERACLIO Pantoprazole Sodium 80 mg/ 100 mls @ 10 mls/hr 10/18/24 14:00 10/21/24 10:58 Sodium Chloride IV 10 mls/hr INFUSION HERACLIO Administration Potassium Chloride/Sodium Chloride 1,000 mls @ 125 mls/hr 10/19/24 08:00 10/21/24 11:01 Kcl 40meq/D5-0.45% Nacl IV 125 mls/hr INFUSION HERACLIO Administration Morphine Sulfate 2 mg 10/19/24 17:00 10/21/24 08:35 Morphine 2 Mg/Ml Syr IVP 2 mg Q4H PRN PRN Administration Sodium Chloride 0 ml 10/17/24 22:16 10/21/24 11:07 Normal Saline Flush 10 Ml Syr IVP 20 ml PRN PRN Administration Sodium Chloride 0 ml 10/18/24 08:30 10/21/24 08:29 Normal Saline Flush 10 Ml Syr IVP 10 ml BID HERACLIO Administration Sodium Chloride 0 ml 10/17/24 22:16 Normal Saline 10 Ml Vial IJ DIRECTED PRN PFSH Active Problems Active Problems: Problem Status Onset Code Liver masses Acute R16.0 Hiatal hernia with GERD and esophagitis Acute K44.9, K21.00 Hypokalemia Acute E87.6 Acute esophageal obstruction Acute K22.2 Vision impairment Chronic H54.7 Achilles tendon contracture, right Acute M67.01 Capsulitis of right foot Acute M77.8 Bursitis Acute M71.9 Metatarsalgia, right foot Acute M77.41 History of total right knee replacement Acute 08/23/22 Z96.651 Anemia due to acute blood loss Acute D62 Multiple gastric polyps Chronic K31.7 Esophagitis Acute K20.90 Hypomagnesemia Acute E83.42 Nonsustained paroxysmal supraventricular tachycardia Resolved I47.1 Multiple gastric polyps Acute ~03/16/20 K31.7 Discharge planning issues Acute Z02.9 DVT prophylaxis Acute Z29.9 H/O: CVA (cerebrovascular accident) Chronic Z86.73 Weight loss, non-intentional Acute R63.4 Dysphagia Chronic R13.10 Upper gastrointestinal bleeding Acute K92.2 HTN (hypertension) Chronic GERD (gastroesophageal reflux disease) Chronic Medical History Medical History Dislocation of right shoulder joint >35 years ago Reduced in ER History of stroke >30 years ago; denies residual issues History of breast cancer (~2011) Treated with left breast lumpectomy and sentinel lymph node biopsies and subsequent radiation and chemotherapy; follow-up through [facility] Surgical History Surgical History Status post laparotomy Performed for evaluation of possible ectopic but none found S/P breast lumpectomy (~2011) Tobacco Smoking/Tobacco Use Status: Never Alcohol Alcohol Intake: current Alcohol intake frequency: 0-2 drinks per day Alcohol type: beer and wine Substance Use Substance use type: does not use Prental History History 0 Para Hx # Term Pregnancies Multiple births Hx # Pregnancies Ectopic pregnancies AB induced Hx Number of Living Children AB spontaneous Vital Signs and Lab Results Vital Signs Most Recent Vital Signs in EMR: Most Recent Vital Signs Temp Pulse Resp BP Pulse Ox 36.5 C 88 15 145/90 H 94 10/21/24 11:06 10/21/24 11:06 10/21/24 11:06 10/21/24 11:06 10/21/24 11:06 Lab Results 10/19/24 06:02 10/20/24 07:58 Complete Blood Count: WBC, (4.4-10.8) 8.17 10^3/uL 10/19/24, 06:02 RBC, (3.93-5.22) 4.31 10^6/uL 10/19/24, 06:02 Hgb, (11.2-15.7) 13.4 g/dL 10/19/24, 06:02 Hct, (36.0-46.0) 41.3 % 10/19/24, 06:02 Plt Count, (130-400) 183 10^3/uL 10/19/24, 06:02 Complete Metabolic Panel: Sodium, (136-145) 140 mmol/L 10/20/24, 07:58 Potassium, (3.5-5.1) 4.3 mmol/L Δ 10/20/24, 07:58 Chloride, (98-107) 106 mmol/L 10/20/24, 07:58 Carbon Dioxide, (21.0-32.0) 23.5 mmol/L 10/20/24, 07:58 BUN, (7-18) 2 mg/dL L 10/20/24, 07:58 Creatinine, (0.55-1.02) 0.5 mg/dL L 10/20/24, 07:58 Est GFR (CKD-EPI 2020), (mL/min/1.73m2) 96.54 10/20/24, 07:58 Magnesium, (1.8-2.4) 1.6 mg/dL L 10/20/24, 07:58 Calcium, (8.5-10.1) 9.1 mg/dL 10/20/24, 07:58 Albumin, (3.4-5.0) 3.1 g/dL L 10/19/24, 06:02 Glucose, (74-106) 130 mg/dL H 10/20/24, 07:58 Liver Function Panel: ALT, (14-59) 21 U/L 10/19/24, 06:02 AST, (15-37) 20 U/L 10/19/24, 06:02 Coagulation Panel: INR, (0.9-1.1) 1.1 10/17/24, 22:17 PT, (9.1-11.1) 10.9 sec 10/17/24, 22:17 APTT, (20.6-30.2) 23.9 sec 10/17/24, 22:17 Cardiac Panel: Troponin I, (<or=51) 14 ng/L 10/17/24 Pancreas Panel: Lipase, (<78) 22 U/L 10/17/24, 22:17 Imaging and Studies Imaging and Studies Study information below may be from another EMR and interpreted by another provider. Please see original notes in EMR for more complete details. EKG Summary: DATE/TIME OF SERVICE: 07/14/20806 : 04/09/1946PERFORMING LOCATION: DI.CARD APPROVED REPORT Exam: Resting ECG Patient Location: O HR:68 bpm ECG Measurements Heart Rate 68 AXIS WI 142 P 30 QRSd 80 QRS -24 QT 406 T-3 QTc 432 Conclusion Sinus rhythm...normal P axis, V-rate 50- 99 Atrial premature complex... low voltage Echocardiogram Summary: Date of study: 01/31/2018 Transthoracic Echocardiography M-mode, complete 2D, complete spectral Doppler, and color Doppler *STUDY CONCLUSIONS* Summary: 1. Left ventricle: The cavity size was normal. Wall thickness was normal. Systolic function was normal. The estimated ejection fraction was 60-65%. Wall motion was normal; there were no regional wall motion abnormalities. Some parameters suggest diastolic dysfunction. 2. Left atrium: The atrium was mildly dilated. 3. Right ventricle: The cavity size was normal. Wall thickness was normal. Systolic function was normal. Anesthesia Assessment and Plan Anesthesia History Personal History: No History of Anesthesia Complications Family History: No Family History of Anesthesia Complications Exercise Tolerance Exercise Tolerance: Metabolic Equivalents>4 Cardiac & Pulmonary Exam Cardiac Exam: Normal S1/S2 Heart Sounds Pulmonary Exam: Clear Bilateral Breath Sounds Implantable Cardiac Device Does patient have a Pacemaker or an ICD?: No Airway Exam Known Difficult Airway: No Mallampati Class: 2 Mouth Opening: Normal (> 3cm) Thyromental Distance: Less than 3 cm Neck Range of Motion: Full ROM Neck Circumference: Normal Teeth Condition: Normal Dentition ASA Classification ASA Score: ASA 3 Emergency Case?: No NPO Status NPO Status: NPO Clears >2 hours, Solids >8 hours Anesthesia Plan Resuscitation Status: Full Code Anesthesia Technique: General Anesthesia Airway Planned: Endotracheal Tube Monitors Used: Standard Monitors Preoperative Comments:: 79 yo female for EGD due to esophageal stricture. Dilation was previously attempted, but was not able to be completed due to swelling. Previous Anes for EGD: RSI glide 3 grade 1. Discussed plans for RSI. Discussed risk of aspiration.
[2024-10-21] MEDS: Lactated Ringers 1,000 ML 30 ML IV (12:13)
--- NOTE | 2024-10-21 12:50 | ENDO_ITS ---
Date of service: 10/21/24 Time of Service: 12:50 Endoscopy Report DATE OF PROCEDURE: 10/21/24 PRE-OP DIAGNOSIS: esophageal obstruction POST-OP DIAGNOSIS: same (Esophageal obstruction due to distal esophageal stricture) PROCEDURE: EGD SURGEON: Jyoti Berman ANESTHESIA TYPE: General LMA/ETT ESTIMATED BLOOD LOSS: 0 PATHOLOGY: none sent COMPLICATIONS: None DISPOSITION: PACU INDICATIONS: Esophageal obstruction FINDINGS: Distal esophageal stricture, persistently too narrow to pass through or dilate despite protonix drip for 72 hours. Unsafe to dilate blindly. Improved passage of liquids/saliva through stricture comparatively. PROCEDURE DESCRIPTION: 79-year-old old female admitted with esophageal obstruction. She has a 4-week history of progressive dysphagia leading to complete oral intolerance of food and liquid. CT imaging showed distal esophagus obstruction and a dilated fluid- filled esophagus. She has a history of hiatal hernia with GERD and esophagitis, and a benign gastric polyposis with history of removal of over 60 large sized gastric polyps according to the patient. EGD performed 3 days ago showed narrowing and stiffening of distal esophagus suggestive of a stricture. Pantoprazole drip was administered for 72h followed by repeat attempt at EGD evaluation and possible dilation today. Informed consent was obtained and the patient was taken to the procedure room. General anesthesia was induced with an endotracheal tube. Timeout was performed. The endoscope was passed through a bite block into the esophagus. A large amount of saliva was suctioned yojana. Saliva was noted to push distally with insufflation and pass through the stricture into the stomach more easily than prior procedure. The gastroesophageal junction was identified at 37 cm from the teeth. It was persistently strictured down and the endoscope was not able to be pushed through. Bleeding occurred from gentle attempts to pass the endoscope. The stomach beyond the GE junction could not be visualized at all. There is small polypoid tissue noted at the GE junction, looks hyperplastic or otherwise benign in nature. It is not the obstructive lesion. 4mm in size, stable from previous exam. There is no clear esophageal mass lesion but it is possible there is mass beyond the visualized area. Safe dilation could not be performed with the available balloon dilators. The esophagus was decompressed and emptied out with suction. The endoscope was removed. An awake extubation was performed to prevent aspiration with extubation. No complications Assessment and plan; Persistent severe stricture/narrowing of distal esophagus. There is some improvement with visualized passage of some saliva into the stomach during the exam. There is growing concern for a mass lesion beyond the narrowing. I spoke with the patient prior to procedure, and with Ortega after the procedure. Will plan to send patient to a tertiary center for availability of more advanced GI expertise, tools and techniques. Continue pantoprazole drip.
--- NOTE | 2024-10-21 13:23 | W.ANESPOSTOP ---
Postoperative Evaluation Date, Time and Location Date Performed: 10/21/24 Time Performed: 13:23 Patient Location: Day Surgery Unit Vital Signs Most Recent Imported Vital Signs: Most Recent Vital Signs Temp Pulse Resp BP Pulse Ox 36.7 C 80 19 149/63 H 95 10/21/24 13:11 10/21/24 13:11 10/21/24 13:11 10/21/24 13:11 10/21/24 13:11 Most Recent Vital Signs Temp Pulse Resp BP Pulse Ox 36.2 C L 67 17 93/76 L 96 10/18/24 13:19 10/18/24 13:21 10/18/24 13:21 10/18/24 13:21 10/18/24 13:21 Pain Score Most Recent Pain Score: Most Recent Pain Score Pain Level [Anterior Medial 6 10/21/24 08:15 Chest] Pain Level 0 10/21/24 13:11 Assessment Mental Status: Awake (Alert & Oriented to Patient Baseline) Airway and Respiratory Function: Patent airway with normal (patient baseline) respiratory exam Cardiovascular Function: Hemodynamically Stable Hydration Status: Adequately Hydrated Nausea & Vomiting: No Nausea or Vomiting Pain: Pt. Denies Any Pain Peripheral Nerve Block: Patient did not receive a nerve block
[2024-10-21] MEDS: Heparin 5,000 UNITS/ML VIAL 5000 UNITS SC ×2 (14:37→22:09)
--- NOTE | 2024-10-21 15:40 | PDOC.CMPRO ---
Date of service: 10/21/24 Time of Service: 15:40 Care Management Progress Note Progress Note Text Progress Note Text: Desirae was lying in bed and awake visiting with her Ortega when CM arrived. She had a palliative consult today. Desirae underwent an EDG with dilation today which she reports was unsuccessful in obtaining a biospy. It is still anticipated Desirae will transfer to a tertiary facility. Desirae states her and Ortega have advanced directives; CM contacted PCP office and is awaiting a return call, directives not on registry. CM will continue to follow. Discharge Potential Discharge Needs: Imaging/labs and PCP F/U Appt Anticipated Barriers to Discharge: Medical Status Patient/Family Education Needs: Review discharge instructions, discuss Ask Me Three Transportation: [place] [facility] [place] Plan: Desirae underwent an EDG today. Anticipate Desirae is being transferred to a tertiary care facility to receive a higher level of care. She should follow up with her PCP, surgical services, and plan of care. Transport pending on plan at discharge. CM will continue to follow. Social Determinants of Health Screening Social Determinants of health last assessed in clinic: 10/18/24 Will the Patient Participate in the Screening?: Declined to provide Do you worry about having a steady place to live?: no Problems where you live: no known problems In the past 12 months, have you had to go without electric, gas, oil or water in your home?: no Has lack of transportation kept you from medical appointments or from doing things needed for daily living?: no Has anyone in your life made you feel unsafe or unsupported?: no How hard is it for you to pay for the very basics like food, housing, medical care, and heating? Would you say it is:: Not hard at all Do you want help finding or keeping work or a job?: I do not need or want help If for any reason you need help with day-to-day activities such as bathing, preparing meals, shopping, managing finances, etc., do you get the help you need?: I don?t need any help How often do you feel lonely or isolated from those around you?: Never Do you speak a language other than [place]bourg[place] at home?: No Does the patient want assistance with any of the above?: No
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
--- NOTE | 2024-10-21 17:35 | PGE_ITS ---
Date of Service Date of service: 10/21/24 Time of Service: 17:35 Assessment and Plan Assessment and plan (1) Acute esophageal obstruction: Start date: 10/18/24 Status: Acute Assessment and plan: Stricture just past gastroesophageal junction seen on 10/18 EGD, pantoprazole drip over the weekend, but still not able to get through obstruction on repeat EGD 10/21. Case reviewed with GI. They have slim scope they think they could at least get through for biopsy. No beds to transfer, but will try down/back this week for endoscopy as well as try to get IR to do percutaneous feeding tube. (2) Multiple gastric polyps: Status: Chronic Assessment and plan: Patient at risk for malignancy in her stomach or esophagus. Liver masses add to this concern. Results from EGDs in 04/2020 and 09/2023 reviewed, multiple polyps both times, in 2020 there were at least 50 with largest up to 3cm, all over 1cm were removed. In 2023 found multiple typical fundic and gastric gland polyps, larges 18m removed. Both times gastric fundic gland polyps on pathology. Plan as above, GI at [facility] (3) Liver masses: Status: Acute Assessment and plan: Discussed with the patient and her and family friend Dr. Phillips, including concern for malignancy. Also a large lymph node on CT. If cancer found on endoscopy, more likely the liver lesions would be metastases. If no cancer on EGD, would consider biopsy of liver lesions or at least liver MRI to start as the MRI itself can be diagnostic for HCC. (4) Hypokalemia: Start date: 10/18/24 Status: Acute Assessment and plan: a/w hypomagnesemia. Chronically on potassium supplement. Replaced both IV, repeat in am (5) DVT prophylaxis: Status: Acute Assessment and plan: SQ heparin Subjective Subjective Patient reports: voiding w/o difficulty; denies nausea, vomiting, shortness of breath or fever Interval history since last seen: EGD this morning, not able to pass obstruction She feels okay, still getting intermittent pain spasms. She has been up on her feet. Exam Narrative Exam Narrative: General: She is alert and oriented, NAD Lungs: Normal aeration and clear to auscultation and percussion. No expiratory wheeze. Heart: Regular rate and rhythm with no murmurs gallops appreciated. Abdomen: +BS, soft, mild epigastric tenderness, NT/ND Extremities without clubbing, cyanosis or pitting edema. Good capillary refill. Objective Last Vital Signs Temp 36.7 C 10/21/24 15:17 Pulse 79 10/21/24 15:17 Resp 15 10/21/24 15:17 BP 123/90 10/21/24 15:17 Pulse Ox 99 10/21/24 15:17 Laboratory Results - last 24 hr 10/19/24 06:40 Sodium Cancelled Potassium Cancelled Chloride Cancelled Carbon Dioxide Cancelled Anion Gap Cancelled BUN Cancelled Creatinine Cancelled Est GFR (CKD-EPI 2020) Cancelled Glucose Cancelled Calcium Cancelled PAWSS Have you Been Recently Intoxicated or Drunk Within the Last 30 days?: No Have you Ever Experienced Previous Episodes of Alcohol Withdrawal?: No Have you ever Experienced Withdrawal Seizures?: No Have you ever Experienced Delirium Tremens(DT)s?: No Have you ever undergone Alcohol Rehabilitation Treatment (i.e, inpt ot outpatient treatment programs)?: No Have you ever Experienced Blackouts?: No Have you ever Combined Alcohol with other Downers within the last 90 days?: No Have you ever Combined Alcohol with any other Substance of Abuse during the last 90 days?: No Positive Blood Alcohol level on Presentation? [PCS.BAL]: No Evidence of Increased Autonomic Activity (i.e. HR>120, tremor, sweating, agitation, nausea)?: No Result: 0 Time Spent with Patient Time Spent with Patient: 35-49 minutes Time was spent: preparing to see the patient(eg.review tests), obtaining and/or reviewing separately otained hiistory, ordering medications,tests, procedures, referring, communicating with other health resident care associate, indepentently interpreting results, counseling the patient and care coordination
[2024-10-22] MEDS: MAGNESIUM SULFATE 8.12 MEQ, MULTIVITAMIN 10 ML, THIAMINE 100 MG, FOLIC ACID 1 MG in Nor... 168.867 MG IV (01:00)
[2024-10-22] MEDS: Normal Saline Flush 10 ML SYR IVP ×3 (01:06→19:54)
--- NOTE | 2024-10-22 03:00 | RT.EKG_ITS ---
APPROVED REPORT Exam: Resting ECG Reason for Exam: Rhythm Change Patient Location: I HR:64 bpm ECG Measurements Heart Rate 64 AXIS VT 143 P -5 QRSd 93 QRS -55 QT 379 T 13 QTc 391 Conclusion Sinus rhythm...normal P axis, V-rate 50- 99 Supraventricular bigeminy...bigeminy string>4 w/ SV complexes Left anterior fascicular block...axis(240,-40), init forces inf Consider anterior infarct...Q >30mS in V2-V5
[2024-10-22 03:05] VITALS: BP 109/58; PULSE 62; RESP 19; TEMP 36.1; O2SAT 95
[2024-10-22] MEDS: Heparin 5,000 UNITS/ML VIAL 5000 UNITS SC (05:49)
[2024-10-22] MEDS: MORPHine 2 MG/ML SYR IVP ×5 (06:33→23:57)
[2024-10-22 07:07] LABS: Anion Gap 9.7 mmol/L (3-11); BUN 3 mg/dL (7-18); CO2 24.3 mmol/L (21.0-32.0); Calcium 8.9 mg/dL (8.5-10.1); Chloride 107 mmol/L (98-107); Estimated GFR 101.87 (mL/min/1.73m2); Glucose 90 mg/dL (74-106); Magnesium 1.6 mg/dL (1.8-2.4); Potassium 3.3 mmol/L (3.5-5.1); Sodium 141 mmol/L (136-145)
[2024-10-22 07:13] VITALS: BP 110/69; PULSE 56; RESP 15; TEMP 36.2; O2SAT 92
--- NOTE | 2024-10-22 10:42 | PDOC.CMPRO ---
Date of service: 10/22/24 Time of Service: 10:58 Care Management Progress Note Progress Note Text Progress Note Text: Desirae was sitting up in bed and awake when CM met with her. She states she is experiencing some burning at rest but it is worse when she tried to drink water. CM informed RN. It is anticipated Desirae will go for a down and [place] [facility] [place] G tube by IR (Interventional Radiology). PCP states they do not have advanced directives on file. Desirae states Ortega will bring them in. Desirae shares she was treated by [facility] for her cancer treatment. Following the treatment, she lost eye sight other than figures and movements. CM will continue to follow. Discharge Potential Discharge Needs: PT Evaluation, PCP F/U Appt and Surgical F/U Appt Anticipated Barriers to Discharge: Medical Status Patient/Family Education Needs: Review discharge instructions, discuss Ask Me Three Transportation: Private vehicle (EMS for down and back, Private vehicle at D/C) Plan: Desirae underwent an EDG yesterday and will go [place] [facility] [place]. Anticipate Desirae will discharge home possibly with new services (may benefit from PT consult) vs. being transferred to a tertiary care facility to receive a higher level of care. Regardless, she should follow up with her PCP, surgical services, and plan of care. Likely she will transport via private vehcile. CM will continue to follow. Social Determinants of Health Screening Social Determinants of health last assessed in clinic: 10/18/24 Will the Patient Participate in the Screening?: Declined to provide Do you worry about having a steady place to live?: no Problems where you live: no known problems In the past 12 months, have you had to go without electric, gas, oil or water in your home?: no Has lack of transportation kept you from medical appointments or from doing things needed for daily living?: no Has anyone in your life made you feel unsafe or unsupported?: no How hard is it for you to pay for the very basics like food, housing, medical care, and heating? Would you say it is:: Not hard at all Do you want help finding or keeping work or a job?: I do not need or want help If for any reason you need help with day-to-day activities such as bathing, preparing meals, shopping, managing finances, etc., do you get the help you need?: I don?t need any help How often do you feel lonely or isolated from those around you?: Never Do you speak a language other than Maltese at home?: No Does the patient want assistance with any of the above?: No
[2024-10-22 11:41] VITALS: BP 128/60; PULSE 61; RESP 12; TEMP 36.3; O2SAT 95
[2024-10-22] MEDS: Pantoprazole 40 MG VIAL IVP ×2 (12:09→19:53)
--- NOTE | 2024-10-22 15:06 | CHAPLAIN ---
Desirae was resting in bed when I visited. She was waiting for the nurse to arrive with her morphine shot, so pleasantly joked that she was disappointed it was me who walked in. Desirae explained that she is having trouble swallowing and was expecting to be transferred to [facility] today where they would use a pediatric scope on her because of her small size, but that trip was delayed until tomorrow. Desirae's , Ortega, was with her. They are from [place] and are members of the [employer]. We found out that we're [facility] just outside of [place] and attend services there. Ortega is the former care assistant head master at the [facility]. Desirae asked me to pray for her.
[2024-10-22] MEDS: POTASSIUM CHLORIDE/D5-0.45NACL 1,000 ML 125 MEQ IV ×2 (15:20→23:31)
[2024-10-22 19:16] VITALS: BP 157/74; PULSE 60; RESP 17; TEMP 36.1; O2SAT 95
--- NOTE | 2024-10-22 19:25 | PGE_ITS ---
Date of Service Date of service: 10/22/24 Time of Service: : Assessment and Plan Assessment and plan (1) Acute esophageal obstruction: Start date: 10/18/24 Status: Acute Assessment and plan: Stricture just past gastroesophageal junction seen on 10/18 EGD, pantoprazole drip over the weekend, but still not able to get through obstruction on repeat EGD 10/21. Case reviewed with GI and IR, plan down/back 10/22 with endoscopy with biopsy and IR g-tube (2) Multiple gastric polyps: Status: Chronic Assessment and plan: Patient at risk for malignancy in her stomach or esophagus. Liver masses add to this concern. Results from EGDs in 04/2020 and 09/2023 reviewed, multiple polyps both times, in 2020 there were at least 50 with largest up to 3cm, all over 1cm were removed. In 2023 found multiple typical fundic and gastric gland polyps, larges 18m removed. Both times gastric fundic gland polyps on pathology. Plan as above, GI at [facility], pending (3) Liver masses: Status: Acute Assessment and plan: Discussed with the patient and her and family friend Dr. Phillips, including concern for malignancy. Also a large lymph node on CT. If cancer found on endoscopy, more likely the liver lesions would be metastases. If no cancer on EGD, would consider biopsy of liver lesions or at least liver MRI to start as the MRI itself can be diagnostic for HCC. Discussed with IR. (4) Hypokalemia: Start date: 10/18/24 Status: Acute Assessment and plan: a/w hypomagnesemia. Chronically on potassium supplement. Replaced both again IV, repeat in am (5) DVT prophylaxis: Status: Acute Assessment and plan: change to LMWH for less shots Subjective Subjective Patient reports: no new complaints and voiding w/o difficulty; denies shortness of breath or fever Interval history since last seen: Events: SVT overnight. given bananna bag. now on tele wanted to try fluids, but water came right back up after trying to swallow. Otherwise she feels well Exam Narrative Exam Narrative: General: She is alert and oriented, NAD Lungs: Normal aeration and clear to auscultation and percussion. No expiratory wheeze. Heart: Regular rate and rhythm with no murmurs gallops appreciated. Abdomen: +BS, soft, mild epigastric tenderness, NT/ND Extremities without clubbing, cyanosis or pitting edema. Good capillary refill. Objective Last Vital Signs Temp 36.1 C L 10/22/24 19:16 Pulse 60 10/22/24 19:16 Resp 17 10/22/24 19:16 BP 157/74 H 10/22/24 19:16 Pulse Ox 95 10/22/24 19:16 Laboratory Results - last 24 hr 10/22/24 06:05 Sodium 141 Potassium 3.3 L D Chloride 107 Carbon Dioxide 24.3 Anion Gap 9.7 BUN 3 L Creatinine 0.4 L Est GFR (CKD-EPI 2020) 101.87 Glucose 90 Calcium 8.9 Magnesium 1.6 L PAWSS Have you Been Recently Intoxicated or Drunk Within the Last 30 days?: No Have you Ever Experienced Previous Episodes of Alcohol Withdrawal?: No Have you ever Experienced Withdrawal Seizures?: No Have you ever Experienced Delirium Tremens(DT)s?: No Have you ever undergone Alcohol Rehabilitation Treatment (i.e, inpt ot outpatient treatment programs)?: No Have you ever Experienced Blackouts?: No Have you ever Combined Alcohol with other Downers within the last 90 days?: No Have you ever Combined Alcohol with any other Substance of Abuse during the last 90 days?: No Positive Blood Alcohol level on Presentation? [PCS.BAL]: No Evidence of Increased Autonomic Activity (i.e. HR>120, tremor, sweating, agitation, nausea)?: No Result: 0 Time Spent with Patient Time Spent with Patient: 25-34 minutes Time was spent: preparing to see the patient(eg.review tests), obtaining and/or reviewing separately otained hiistory, ordering medications,tests, procedures, referring, communicating with other health children's zoo caretaker, indepentently interpreting results, counseling the patient and care coordination
[2024-10-22] MEDS: MAGNESIUM SULFATE 4 GM/100 ML BAG IV_INF (19:40)
[2024-10-22 23:15] VITALS: BP 144/71; PULSE 63; RESP 17; TEMP 36; O2SAT 94
[2024-10-23 03:39] VITALS: BP 109/69; PULSE 56; RESP 16; TEMP 36; O2SAT 93
[2024-10-23] MEDS: MORPHine 2 MG/ML SYR IVP ×4 (04:00→20:09)
[2024-10-23 06:51] LABS: Anion Gap 7.5 mmol/L (3-11); CO2 25.5 mmol/L (21.0-32.0); Calcium 9.1 mg/dL (8.5-10.1); Chloride 106 mmol/L (98-107); Estimated GFR 101.87 (mL/min/1.73m2); Glucose 113 mg/dL (74-106); Magnesium 2.1 mg/dL (1.8-2.4); Potassium 4.3 mmol/L (3.5-5.1); Sodium 139 mmol/L (136-145)
[2024-10-23 07:04] LABS: BUN 2 mg/dL (7-18)
[2024-10-23] MEDS: POTASSIUM CHLORIDE/D5-0.45NACL 1,000 ML 125 MEQ IV (07:28)
[2024-10-23 07:33] VITALS: BP 137/80; PULSE 54; RESP 15; TEMP 36.3; O2SAT 97
[2024-10-23] MEDS: Normal Saline Flush 10 ML SYR IVP ×4 (08:01→20:08)
[2024-10-23] MEDS: Pantoprazole 40 MG VIAL IVP ×2 (08:01→20:09)
[2024-10-23 10:26] LABS: HCT 42.3 % (36.0-46.0); HGB 13.7 g/dL (11.2-15.7); MCH 30.9 pg (27.0-33.0); MCHC 32.4 % (32.0-36.0); MCV 96 fL (80-95); MPV 10.0 fL (8.0-11.0); Platelet Count 173 10^3/uL (130-400); RBC 4.43 10^6/uL (3.93-5.22); RDW 12.9 % (11.7-14.6); RDW-SD 44.9 fL; WBC 8.04 10^3/uL (4.4-10.8)
--- NOTE | 2024-10-23 10:34 | PDOC.CMPRO ---
Date of service: 10/23/24 Time of Service: 12:34 Care Management Progress Note Progress Note Text Progress Note Text: Desirae went for a down and back to [facility] today. CM did not meet with her as she was out of the building. PT consult requested. CM will continue to follow. Discharge Potential Discharge Needs: PT Evaluation, PCP F/U Appt and Surgical F/U Appt Anticipated Barriers to Discharge: Medical Status Patient/Family Education Needs: Review discharge instructions, discuss Ask Me Three Transportation: Private vehicle Plan: Desirae went for a [facility] down and back today. Anticipate Desirae will discharge home possibly with new services (may benefit from PT consult) vs. being transferred to a tertiary care facility to receive a higher level of care. Regardless, she should follow up with her PCP, surgical services, and plan of care. Likely she will transport via private vehcile. CM will continue to follow. Social Determinants of Health Screening Social Determinants of health last assessed in clinic: 10/23/24 Will the Patient Participate in the Screening?: Declined to provide Do you worry about having a steady place to live?: no Problems where you live: no known problems In the past 12 months, have you had to go without electric, gas, oil or water in your home?: no 1. Within the past 12 months, we worried whether our food would run out before we got money to buy more.: Never true 2. Within the past 12 months, the food we bought just didn't last and we didn't have money to get more.: Never true Has lack of transportation kept you from medical appointments or from doing things needed for daily living?: no Has anyone in your life made you feel unsafe or unsupported?: no How hard is it for you to pay for the very basics like food, housing, medical care, and heating? Would you say it is:: Not hard at all Do you want help finding or keeping work or a job?: I do not need or want help If for any reason you need help with day-to-day activities such as bathing, preparing meals, shopping, managing finances, etc., do you get the help you need?: I don?t need any help How often do you feel lonely or isolated from those around you?: Never Do you speak a language other than Telugu at home?: No Does the patient want assistance with any of the above?: No
--- NOTE | 2024-10-23 16:28 | PHA.REVIEW2 ---
Pharmacy Admission Review Admission Clinical Review Admission Pharmacy Review: ACP (advance care planning) (Acute) Palliative care encounter (Acute) Liver masses (Acute) Hiatal hernia with GERD and esophagitis (Acute) Hypokalemia (Acute) Acute esophageal obstruction (Acute) Multiple gastric polyps (Acute ~03/16/20) DVT prophylaxis (Acute) Weight loss, non-intentional (Acute) Sulfa (Sulfonamide Antibiotics) Allergy (Unverified 10/17/24 22:04) Other (See Comment) honey bees Allergy (Severe, Uncoded 10/17/24 22:04) Anaphylaxis Resuscitation Status Full Code Height 4 ft 11 in Weight 56.4 kg Pharmacy Admission Review Renal Dosing Renal Dosing: BUN 2 mg/dL (7-18) L 10/23/24 05:48 Creatinine 0.4 mg/dL (0.55-1.02) L 10/23/24 05:48 Medications needing adjustments: Reviewed (CrCl 41.91 mL/min) List of meds needing interventions: Current medications are okay Anticoagulation Anticoagulation: Hgb 13.7 g/dL (11.2-15.7) 10/23/24 10:15 Hct 42.3 % (36.0-46.0) 10/23/24 10:15 Plt Count 173 10^3/uL (130-400) 10/23/24 10:15 INR 1.1 (0.9-1.1) 10/17/24 22:17 Creatinine 0.4 mg/dL (0.55-1.02) L 10/23/24 05:48 DVT Prophylaxis: Reviewed Medications: Enoxaparin (40mg daily) Opiate Usage Evaluate Pain Scale/Pains Meds: Reviewed (morphine 2mg IVP q4h PRN - 10mg/24hrs) Scheduled Bowel Reg ordered if on Opiates?: No Relevant Labs Relevant Labs: Sodium 139 mmol/L (136-145) 10/23/24 05:48 Potassium 4.3 mmol/L (3.5-5.1) D 10/23/24 05:48 Chloride 106 mmol/L (98-107) 10/23/24 05:48 Magnesium 2.1 mg/dL (1.8-2.4) 10/23/24 05:48 Electrolytes, C-Reactive P, ESR: Reviewed Cardiac Review Cardiac Review: Troponin I Cancelled 10/18/24 01:16 BP, HR, EF%: Reviewed (HR 54, BP WNL) QTc Review QTc: Reviewed (391 from 10/22/24) IV to PO Switch IV Medications: Reviewed (NPO - esophageal obstruction) Home Meds Home Med List reviewed: Reviewed (NPO - none ordered at this time) Relevent Home Meds Not ordered & why?: acetaminophen (PRN), aspirin, atorvastatin, vitamin D3, colchicine, vitamin B12, Epipen (PRN), famotidine, folic acid, mycophenolate, omeprazole (has order for IV pantoprazole), potassium, vitamin B6 and vitamin A Current Meds Current Medication Order Review: Intervened Comments: Added IV admission order
--- NOTE | 2024-10-23 16:45 | W.PM.PROGNOT ---
Date of Service Date of service: 10/23/24 Time of Service: 08:50 Assessment and Plan Assessment and plan (1) Acute esophageal obstruction: Start date: 10/18/24 Status: Acute Assessment and plan: Stricture just past gastroesophageal junction seen on 10/18 EGD, pantoprazole drip over the weekend, but still not able to get through obstruction on repeat EGD 10/21. Case reviewed with GI and IR, sent for down/back 10/23 with endoscopy with biopsy and IR g-tube When she reterns from [facility], will need tube feed orders. Once this started, she can go home if otherwise stable. (2) Multiple gastric polyps: Status: Chronic Assessment and plan: Patient at risk for malignancy in her stomach or esophagus. Liver masses add to this concern. Results from EGDs in 04/2020 and 09/2023 reviewed, multiple polyps both times, in 2020 there were at least 50 with largest up to 3cm, all over 1cm were removed. In 2023 found multiple typical fundic and gastric gland polyps, larges 18m removed. Both times gastric fundic gland polyps on pathology. Visible tissue at obstruction did not look malignant, so it isn't totally clear. Plan as above, GI at [facility], pending (3) Liver masses: Status: Acute Assessment and plan: Discussed with the patient and her Ortega and family friend Dr. Phillips, including concern for malignancy. Also a large lymph node on CT. If cancer found on endoscopy, more likely the liver lesions would be metastases. If no cancer on EGD, would consider biopsy of liver lesions or at least liver MRI to start as the MRI itself can be diagnostic for HCC. Discussed with IR. The patient is willing to have liver biopsy if this is recommended along with other procedures. (4) Hypokalemia: Start date: 10/18/24 Status: Acute Assessment and plan: a/w hypomagnesemia. Chronically on potassium supplement. Normal today. On fluids with 40mEq KCl. (5) DVT prophylaxis: Status: Acute Assessment and plan: LMWH Subjective Subjective Patient reports: no new complaints and voiding w/o difficulty; denies bowel movement, nausea, shortness of breath or fever Interval history since last seen: Events: No events overnight. Few PACs on tele Tried water yesterday, didn't stay down She feels well. No pain now. No chest pain or palpitations. Exam Narrative Exam Narrative: General: She is alert and oriented, NAD Lungs: Normal aeration and clear to auscultation bilaterally. Heart: Regular rate and rhythm with no murmurs or gallops appreciated. Abdomen: +BS, soft, NT/ND Extremities without clubbing, cyanosis or pitting edema. Good capillary refill. Objective Last Vital Signs Temp 36.3 C L 10/23/24 07:33 Pulse 54 L 10/23/24 07:33 Resp 15 10/23/24 07:33 BP 137/80 10/23/24 07:33 Pulse Ox 97 10/23/24 07:33 Laboratory Results - last 24 hr 10/23/24 10/23/24 05:48 10:15 WBC 8.04 RBC 4.43 Hgb 13.7 Hct 42.3 MCV 96 H MCH 30.9 MCHC 32.4 RDW 12.9 Plt Count 173 MPV 10.0 Sodium 139 Potassium 4.3 D Chloride 106 Carbon Dioxide 25.5 Anion Gap 7.5 BUN 2 L Creatinine 0.4 L Est GFR (CKD-EPI 2020) 101.87 Glucose 113 H Calcium 9.1 Magnesium 2.1 PAWSS Have you Been Recently Intoxicated or Drunk Within the Last 30 days?: No Have you Ever Experienced Previous Episodes of Alcohol Withdrawal?: No Have you ever Experienced Withdrawal Seizures?: No Have you ever Experienced Delirium Tremens(DT)s?: No Have you ever undergone Alcohol Rehabilitation Treatment (i.e, inpt ot outpatient treatment programs)?: No Have you ever Experienced Blackouts?: No Have you ever Combined Alcohol with other Downers within the last 90 days?: No Have you ever Combined Alcohol with any other Substance of Abuse during the last 90 days?: No Positive Blood Alcohol level on Presentation? [PCS.BAL]: No Evidence of Increased Autonomic Activity (i.e. HR>120, tremor, sweating, agitation, nausea)?: No Result: 0 Time Spent with Patient Time Spent with Patient: 25-34 minutes Time was spent: preparing to see the patient(eg.review tests), obtaining and/or reviewing separately otained hiistory, ordering medications,tests, procedures, referring, communicating with other health certified social workers in health care, indepentently interpreting results, counseling the patient and care coordination
[2024-10-23 19:10] VITALS: BP 139/74; PULSE 73; RESP 18; TEMP 36.5; O2SAT 95
[2024-10-23] MEDS: Enoxaparin 40 MG/0.4 ML SYR SC (21:55)
[2024-10-23 22:52] VITALS: BP 128/69; PULSE 64; RESP 18; TEMP 36.3; O2SAT 94
[2024-10-24] MEDS: MORPHine 2 MG/ML SYR IVP ×4 (00:15→21:00)
[2024-10-24] MEDS: Normal Saline Flush 10 ML SYR IVP ×4 (00:19→21:01)
[2024-10-24] MEDS: POTASSIUM CHLORIDE/D5-0.45NACL 1,000 ML 125 MEQ IV (00:20)
[2024-10-24 04:41] VITALS: BP 122/74; PULSE 74; RESP 18; TEMP 36.5; O2SAT 95
[2024-10-24 07:25] VITALS: BP 124/72; PULSE 65; RESP 20; TEMP 36.5; O2SAT 95
[2024-10-24] MEDS: Pantoprazole 40 MG VIAL IVP ×2 (08:28→20:59)
--- NOTE | 2024-10-24 10:09 | IN_ITS ---
PT Notes Visit Reasons: Acute esophageal obstruction with dysphagia Physical Therapy Inpatient Initial Evaluation Date: 10/24/2024 Referring Doctor:Dr Busby PT Orders: PT CONSULT: Safety Consult for d/c Precautions: PEG tube continuous, IV access Patient Profile/Admitting Diagnosis: Pt is 79 yo female who presented to the ED with a 4-week history of worsening dysphagia and severe heartburn and weight loss . Pt diagnosed with acute esophageal obstruction.Patient does have a history of gastric polyp which were multiple and never fully removed in the last 4 years. She also has liver lesions on imaging with concern for malignancy in her esophagus/stomach and metastatic disease to the liver. Pt underwent endoscopy with biopsy and IR g-tube at [facility] on 10/23/2024. PMHX: Hypokalemia (Acute) Acute esophageal obstruction (Acute) Vision impairment (Chronic) Achilles tendon contracture, right (Acute) Capsulitis of right foot (Acute) Bursitis (Acute) Metatarsalgia, right foot (Acute) History of total right knee replacement (Acute 08/23/22) Intra-Op medial condylar fracture fixated with screws fixation. Anemia due to acute blood loss (Acute) Multiple gastric polyps (Chronic) Esophagitis (Acute) Hypomagnesemia (Acute) Multiple gastric polyps (Acute ~03/16/20) bleeding adn necroticDischarge planning issues (Acute) DVT prophylaxis (Acute) H/O: CVA (cerebrovascular accident) (Chronic) Weight loss, non-intentional (Acute) Dysphagia (Chronic) Upper gastrointestinal bleeding (Acute) HTN (hypertension) (Chronic) GERD (gastroesophageal reflux disease) (Chronic) No history of formal endoscopic evaluation but empirically treated with AcipHex Medical History Dislocation of right shoulder joint >35 years ago -Reduced in ER History of stroke >30 years ago; denies residual issues History of breast cancer (~2011)-Treated with left breast lumpectomy and sentinel lymph node biopsies and subsequent radiation and chemotherapy; follow- up through [facility] Surgical History Status post laparotomy Performed for evaluation of possible ectopic but none found S/P breast lumpectomy (~2011) Social History/Home Situation: Lives with her in multi level home with ramp to enter. Pt stays on primary level. She is independent ADL and Amb. drives. Equipment Owned/DME: [facility] ( after TKA in 2024) Subjective: Pt reports she feels great and is going home today. Pt reports she only sees outline of images no detail. Objective: [] General Observation:female presented seated at EOB with tube feeding infusing Mental Status: A + O x 4, pleasant cooperative, agreeable to participate in assessment able to follow all instructions Pain: No pain just a little discomfort ROM: [] BUE: WNL BLE:WNL Strength: [] BUE 5/5 BLE 5/5 Sensation: intact Bed Mobility/Transfers: [] Supine to sit Independent Sit to stand Independent Stand to sit Independent Bed to chair Independent Gait:Independent amb 400 feet while managing IV pole including directional changes small spaces, reciprocal pattern Stairs 1 step without rail independent Balance: [] Static Sitting: Normal Dynamic Sitting: Normal Static Standing: Normal Dynamic Standing: Normal Special Tests: [] Mobility Limitations Standardized Measure [] [facility] AM-PAC 6 clicks Basic Mobility Inpatient Short Form: [] Raw Score: 24 CMS Score:0% deficit Informed Consent/Education: Patient instructed in purpose of PT consult. Treatment: [id number]: functional mobility training with IV pole to simulate tight small spaces within her home. frequent sit to stand from chair, toilet, bed independent and tub transfer with grab bar with supervision Assessment: Desirae is a 79yo female who presents s/p PEG tube placement. She was referred to PT for safety assessment prior to discharge. Pt demonstrates ability to perform all functional tasks without an assistive device. Pt scored 24 on AM-PAC indicating low risk for falls and return admission d/t functional decline.Despite visual impairment pt is able to manage obstacles without assistance.Pt demonstrates safe management of IV pole and management of the tube to ensure it remaining secure. Patient is assessed as a low complexity based on the following: History: 79-year-old female with past medical history as indicated above Examination: as documented above Presentation: stable Decision Making: low Goals: N/A. Plan of Care/Treatment Plan: N/A. PT evaluation and 1 treatment session only for functional mobility training DISCHARGE RECOMMENDATIONS: Home no further skilled PT services indicated inpatient or at discharge to community TREATMENT CODE/TIME: 89983, 90241/ [id number] Thank you for the opportunity to participate in the care of this patient. Jamila Leos, PT [facility]
--- NOTE | 2024-10-24 10:12 | TELEFU_ITS ---
Date of service: 10/24/24 Time of Service: 10:13 Nutrition Note NOTE: Pt with hx of acute esophageal obstruction - just past EG junction. Went [place] [facility] [place] down and back for endoscopy and placement of g-tube. Pt anticipating discharge today. Tube feed started this morning - ordered for Jevity 1.2 at 30mL/hour with increase of 15mL [id number] until goal met. No goal rate indicated or protocol for flushes currently. Estimated energy needs: 1300kcals (REEx1.3AF), 67-84g protein (1.2-1.5g/kg) and ~1300mL fluid )1mL per required kcal) With current formula ordered (Jevity 1.2) would recommend goal volume of 1,085mL per day, resulting in 1301kcals, 60grams protein and 874mL fluid. While meeting 100% of her energy needs, she would require and additional 426mL of fluid per day and at least an additional 7g protein to meet her daily estimated needs. This can be achieved via free water flushes and use of at least 1 liquid protein concentrate pkt via g-tube daily (1pkt=15g protein with 60kcal) Initial tube feed recommendation would be to continue with current order of 30mL per hour and would increase 10mL per hour q4hour until goal rate of 45mL per hour is met over a 24 hour continuous feeding cycle for better toleration. Pt will need to be discharged with a plan for home care of her feeding tube and can adjust feeding cycle to 12 hour nocturnal feed or other protocol to best fit her personal preferences. Time Spent in Nutritional Counseling and Treatment: 5 min
--- NOTE | 2024-10-24 11:26 | CMPROGNOTE_ITS ---
Date of service: 10/24/24 Time of Service: 11:27 Care Management Progress Note Progress Note Text Progress Note Text: Desiare was sitting up in bed when CM met with her. She went [place] [facility] [place] for down and back for endoscopy and placement of g-tube. She reports she is having some regurgitation with the tube feeds; CM notified Nutrition, RN, and Provider as patient appears to have difficulty tolerating current regimen. Nutrition recommendations made, see note. has sent nutrition recommendations to [facility] and will continue coordination with other suppliers if necessary. Awaiting a call back to initiated tube feed with cost of delivery details, coordination and insurance coverage. PT consulted and patient is independent without device. CM will continue to follow. Discharge Potential Discharge Needs: PCP F/U Appt and Surgical F/U Appt Anticipated Barriers to Discharge: Medical Status Patient/Family Education Needs: Review discharge instructions, discuss Ask Me Three Transportation: Private vehicle Plan: Desirae went for a [facility] down and back yesterday where a new G-tube was placed. 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 She should follow up with her PCP, surgical services, and plan of care. Likely she will transport via private vehcile. CM will continue to follow. Social Determinants of Health Screening Social Determinants of health last assessed in clinic: 10/24/24 Will the Patient Participate in the Screening?: Declined to provide Do you worry about having a steady place to live?: no Problems where you live: no known problems In the past 12 months, have you had to go without electric, gas, oil or water in your home?: no 1. Within the past 12 months, we worried whether our food would run out before we got money to buy more.: Never true 2. Within the past 12 months, the food we bought just didn't last and we didn't have money to get more.: Never true Has lack of transportation kept you from medical appointments or from doing things needed for daily living?: no Has anyone in your life made you feel unsafe or unsupported?: no How hard is it for you to pay for the very basics like food, housing, medical care, and heating? Would you say it is:: Not hard at all Do you want help finding or keeping work or a job?: I do not need or want help If for any reason you need help with day-to-day activities such as bathing, preparing meals, shopping, managing finances, etc., do you get the help you need?: I don?t need any help How often do you feel lonely or isolated from those around you?: Never Do you speak a language other than Armenian at home?: No Does the patient want assistance with any of the above?: No
[2024-10-24 11:35] VITALS: BP 115/70; PULSE 57; RESP 20; TEMP 36.6; O2SAT 96
--- NOTE | 2024-10-24 11:47 | CHAPLAIN ---
Desirae was sitting up in bed reading on her tablet when I visited. She said she is hoping to be discharged today. Her procedure at [facility] went well yesterday, she said, explaining that they were able to scope down her throat. They also gave her a feeding tube which she said her Ortega will be able to help her with, she said, because he's an EMT. Desirae shared some personal history, telling me about her work for [employer]. She said Ortega has always been involved in lots of community services, so she is used to be home alone. They are members of the [employer] in [place] and are active in the religion. Desirae was very appreciative of the prayer shawl.
--- NOTE | 2024-10-24 15:10 | DSE_ITS ---
Date of service: 10/24/24 Time of Service: 15:10 DS: Diagnosis Discharge Diagnosis (1) Acute esophageal obstruction: Status: Resolved (2) Multiple gastric polyps: Status: Chronic (3) Liver masses: Status: Acute (4) Hypokalemia: Status: Acute (5) DVT prophylaxis: Status: Resolved Discharge Plan Disposition Patient Disposition: Home W/Home Health Services Condition: Stable Discharge Details Reason For Visit: Acute esophageal obstruction with dysphagia Admit Date/Time: 10/18/24 03:00 Admit Provider: Ramon Fuentes Attending Provider: Ramon Fuentes Primary Care Provider: Kleber Rico Hospital Course Hospital Course: It is imperative that Mrs. Galindo follow up with GI and PCP as soon as possible to evaluate a mass in her liver found on CT scan This is a 79-year-old female who was admitted to the hospital on 10/18/2024 for an acute esophageal obstruction. The plan on admission was to get a consult from general surgery for endoscopy. 2 attempts were made for surgical removal without success ultimately the patient was sent down to [facility] for interventional radiology and a stent was placed. Unfortunately, we do not have any details on the procedure. While she was in the ED originally, CT scan was indicative of a possible liver metastasis. The patient will need close monitoring and a biopsy as soon as possible. The original plan was to get this biopsy done at [facility] but due to time constraints this was not done. While she was in [facility], a PEG tube was also placed. Pt will need to follow up with GI [facility] to ensure proper functionality of her device. Pt was very anxious to dc and was dc to home on 10/24/24. Pt is in fair condition. Per PT notes, pt does not need continued PT CT chest/abd/pelvis 10/17/24 IMPRESSION: Dilated fluid-filled esophagus. Consider mass versus stricture at the GE junction. Endoscopy recommended. Suspicious appearing liver lesions which may represent metastatic disease versus primary malignancy. Home Meds and New Rx's Prescriptions: New morphine 10 mg capsule,extend.release pellets 10 mg PO Q12H Qty: 10 0RF Jevity 1.2 Thom 0.06 gram-1.2 kcal/mL liquid 271 ml feeding tube QID 20 Days Qty: 54375 0RF Rx Instructions: administer 4 times a day with 30-60ml flushes before and after each feeding. Also, add between 185-305ml of water throughout the day morphine 10 mg/5 mL solution 10 mg PO Q6H PRNQty: 100 0RF (DME) syringe (disposable) 60 mL syringe See Rx Instructions .Route Qty: 100 0RF Rx Instructions: As directed Continued aspirin 81 mg tablet,delayed release (DR/EC) 81 mg PO DAILY atorvastatin 40 mg tablet 40 mg PO DAILY mycophenolate mofetil 500 mg tablet 1,500 mg PO BID colchicine 0.6 mg tablet 0.6 mg PO DAILY cyanocobalamin (vitamin B-12) 1,000 mcg tablet, sublingual 1,000 mcg sublingual DAILY folic acid 1 mg tablet 1 mg PO DAILY potassium chloride 20 mEq tablet extended release 20 meq PO DAILY vitamin A 2,400 mcg capsule 2,400 mcg PO DAILY pyridoxine (vitamin B6) [Vitamin B-6] 25 mg tablet 25 mg PO DAILY cholecalciferol (vitamin D3) 50 mcg (2,000 unit) capsule 50 mcg PO DAILY epinephrine 0.3 mg/0.3 mL auto-injector 0.3 mg IM ONCE PRN Rx Instructions: as a single dose omeprazole 40 mg capsule,delayed release(DR/EC) 40 mg PO DAILY famotidine 20 mg tablet 20 mg PO DAILY Patient Comments: TAKE ONE TABLET BY MOUTH TWICE A DAY FOR HEARTBURN Discontinued pantoprazole 40 mg tablet,delayed release (DR/EC) 40 mg PO DAILY acetaminophen 500 mg tablet 1,000 mg PO Q8H PRN (Reason: pain) Qty: 90 3RF Discharge Instructions Stand Alone Forms: Nursing Discharge Form Referrals: GASTROENTEROLOGY,[facility] [OTHER, Gastroenterology] Referral Note: The office should be giving you a call to set up a follow up appointment. Appointment needs be as soon as possible. Kleber Rico [Primary Care Provider, Medicine] Referral Note: follow up in 3-5 days. PCP office will give you a call to set up a follow up appointment. follow up with [facility] GI [facility] Activity:: Activity as Tolerated Equipment/Supplies:: No Equipment Needed Diet:: per PEG only for now Discharge Orders Discharge Orders: Discharge Order (Routine); Ordered 10/24/24 Ordered By: Jerry Bone Discharge Data Discharge Date/Time-TO BE ENTERED AT DEPARTURE: 10/25/24 18:27 DS: Summary Time Spent with Patient providing and/or coordinating discharge services: Less than 30 minutes Status at Discharge Functional status at discharge: independent ambulation Overall status at discharge: patient is back to baseline Mental Status: mental status grossly normal Speech and Movement: speech and movement normal Mood: congruent mood Affect: normal affect Exam Psych Mental Status: mental status grossly normal Speech and Movement: speech and movement normal Mood: congruent mood Affect: normal affect DS: Data Vitals/I&O Vitals and I&O: Vital Signs Temperature 36.6 C 10/24/24 11:35 Temperature Source Temporal Artery Scan 10/24/24 11:35 Pulse 57 L 10/24/24 11:35 Pulse Rhythm Regular 10/18/24 04:53 Pulse 85 10/21/24 13:11 Respiratory Rate 20 10/24/24 11:35 Respiratory Effort Normal 10/18/24 04:53 Respiratory Depth Normal 10/18/24 04:53 Respiratory Pattern Normal 10/18/24 04:53 Blood Pressure 115/70 10/24/24 11:35 Blood Pressure Mean 85 10/24/24 11:35 Pulse Oximetry 96 10/24/24 11:35 Respiratory End-tidal CO2 27 10/18/24 13:40 Oxygen Delivery Method Room Air 10/24/24 11:35 Oxygen Flow Rate 0 10/24/24 11:35 Pain Level 0 10/24/24 11:35 Comment RN notified 10/21/24 11:06 Comment Pt arrived in pacu. 10/18/24 13:04 Intake & Output 10/23/24 10/24/24 10/24/24 23:59 11:59 23:59 Intake Total 452.083 / 3993.750 1262.500 / 1262.500 Balance 452.083 / 3993.750 1262.500 / 1262.500 Weight 56.3 kg Intake: IV 452.083 / 3993.750 1262.500 / 1262.500 Other: Urine Color Yellow Urine Appearance Clear Urine Odor Normal Comment immeasurable void into toilet PFSH All Active Problems (Updated 10/26/24 @ 00:00 by KAILA GREENBERG) ACP (advance care planning) (Acute) Palliative care encounter (Acute) Liver masses (Acute) Hiatal hernia with GERD and esophagitis (Acute) Hypokalemia (Acute) Vision impairment (Chronic) Achilles tendon contracture, right (Acute) Capsulitis of right foot (Acute) Bursitis (Acute) Metatarsalgia, right foot (Acute) History of total right knee replacement (Acute 08/23/22) Intra-Op medial condylar fracture fixated with screws fixation. Anemia due to acute blood loss (Acute) Multiple gastric polyps (Chronic) Esophagitis (Acute) Hypomagnesemia (Acute) Multiple gastric polyps (Acute ~03/16/20) bleeding adn necrotic Discharge planning issues (Acute) H/O: CVA (cerebrovascular accident) (Chronic) Weight loss, non-intentional (Acute) Dysphagia (Chronic) Upper gastrointestinal bleeding (Acute) HTN (hypertension) (Chronic) GERD (gastroesophageal reflux disease) (Chronic) No history of formal endoscopic evaluation but empirically treated with AcipHex Medical History (Updated 10/26/24 @ 00:00 by KAILA GREENBERG) Dislocation of right shoulder joint >35 years ago Reduced in ER History of stroke >30 years ago; denies residual issues History of breast cancer (~2011) Treated with left breast lumpectomy and sentinel lymph node biopsies and subsequent radiation and chemotherapy; follow-up through [facility] Surgical History (Updated 10/26/24 @ 00:00 by KAILA GREENBERG) History of esophagogastroduodenoscopy (~09/2024) Status post laparotomy Performed for evaluation of possible ectopic but none found S/P breast lumpectomy (~2011) Family History Father No problems noted. Other Colon cancer Social History Smoking/Tobacco Use Status: Never Smoking risk assessment performed?: Yes Alcohol Intake: current Alcohol Intake frequency: 0-2 drinks per day Alcohol type: beer and wine Substance use type: does not use Housing: house What type of physical activity do you participate in: none Additional Social history: Unable to [facility] History History 0 Para Hx # Term Pregnancies Multiple births Hx # Pregnancies Ectopic pregnancies AB induced Hx Number of Living Children AB spontaneous Time Spent with Patient Time Spent with Patient: <45 minutes Time was spent: preparing to see the patient(eg.review tests), obtaining and/or reviewing separately otained hiistory, ordering medications,tests, procedures, referring, communicating with other health lpn care manager, indepentently interpreting results, counseling the patient and care coordination
--- NOTE | 2024-10-24 15:13 | DSE_ITS ---
Date of service: 10/24/24 Time of Service: 15:13 DS: Diagnosis Discharge Diagnosis (1) Acute esophageal obstruction: Status: Acute (2) Multiple gastric polyps: Status: Chronic (3) Liver masses: Status: Acute (4) Hypokalemia: Status: Acute (5) DVT prophylaxis: Status: Acute Discharge Plan Disposition Patient Disposition: Home Condition: Stable Discharge Details Reason For Visit: Acute esophageal obstruction with dysphagia Admit Date/Time: 10/18/24 03:00 Admit Provider: Ramon Fuentes Attending Provider: Ramon Fuentes Primary Care Provider: Kleber Rico Hospital Course Hospital Course: It is imperative that Mrs. Galindo follow up with GI and PCP as soon as possible to evaluate a mass in her liver found on CT scan This is a 79-year-old female who was admitted to the hospital on 10/18/2024 for an acute esophageal obstruction. The plan on admission was to get a consult from general surgery for endoscopy. 2 attempts were made for surgical removal without success ultimately the patient was sent down to [facility] for interventional radiology and a stent was placed. Unfortunately, we do not have any details on the procedure. While she was in the ED originally, CT scan was indicative of a possible liver metastasis. The patient will need close monitoring and a biopsy as soon as possible. The original plan was to get this biopsy done at [facility] but due to time constraints this was not done. While she was in [facility], a PEG tube was also placed. Pt will need to follow up with GI ELADIA to ensure proper functionality of her device. Pt was very anxious to dc and was dc to home on 10/24/24. Pt is in fair condition. Per PT notes, pt does not need continued PT CT chest/abd/pelvis 10/17/24 IMPRESSION: Dilated fluid-filled esophagus. Consider mass versus stricture at the GE junction. Endoscopy recommended. Suspicious appearing liver lesions which may represent metastatic disease versus primary malignancy. Home Meds and New Rx's Prescriptions: New morphine 10 mg capsule,extend.release pellets 10 mg PO Q12H Qty: 10 0RF Continued aspirin 81 mg tablet,delayed release (DR/EC) 81 mg PO DAILY atorvastatin 40 mg tablet 40 mg PO DAILY mycophenolate mofetil 500 mg tablet 1,500 mg PO BID colchicine 0.6 mg tablet 0.6 mg PO DAILY cyanocobalamin (vitamin B-12) 1,000 mcg tablet, sublingual 1,000 mcg sublingual DAILY folic acid 1 mg tablet 1 mg PO DAILY potassium chloride 20 mEq tablet extended release 20 meq PO DAILY vitamin A 2,400 mcg capsule 2,400 mcg PO DAILY pyridoxine (vitamin B6) [Vitamin B-6] 25 mg tablet 25 mg PO DAILY cholecalciferol (vitamin D3) 50 mcg (2,000 unit) capsule 50 mcg PO DAILY epinephrine 0.3 mg/0.3 mL auto-injector 0.3 mg IM ONCE PRN Rx Instructions: as a single dose omeprazole 40 mg capsule,delayed release(DR/EC) 40 mg PO DAILY famotidine 20 mg tablet 20 mg PO DAILY Patient Comments: TAKE ONE TABLET BY MOUTH TWICE A DAY FOR HEARTBURN Discontinued pantoprazole 40 mg tablet,delayed release (DR/EC) 40 mg PO DAILY acetaminophen 500 mg tablet 1,000 mg PO Q8H PRN (Reason: pain) Qty: 90 3RF Discharge Instructions Stand Alone Forms: Nursing Discharge Form Referrals: Kleber Rico [Primary Care Provider, Medicine] Referral Note: follow up in 3-5 days follow up with [facility] GI [facility] Activity:: Activity as Tolerated Equipment/Supplies:: No Equipment Needed Diet:: per PEG only for now Discharge Orders Discharge Orders: Discharge Order (Routine); Ordered 10/24/24 Ordered By: Jerry Bone DS: Summary Time Spent with Patient providing and/or coordinating discharge services: Greater than 30 minutes Status at Discharge Functional status at discharge: independent ambulation Overall status at discharge: patient is back to baseline Mental Status: mental status grossly normal Speech and Movement: speech and movement normal Mood: congruent mood Affect: normal affect Exam Narrative Exam Narrative: General: She is alert and oriented, NAD Lungs: Normal aeration and clear to auscultation bilaterally. Heart: Regular rate and rhythm with no murmurs or gallops appreciated. Abdomen: +BS, soft, NT/ND Extremities without clubbing, cyanosis or pitting edema. Good capillary refill. Psych Mental Status: mental status grossly normal Speech and Movement: speech and movement normal Mood: congruent mood Affect: normal affect DS: Data Vitals/I&O Vitals and I&O: Vital Signs Temperature 36.6 C 10/24/24 11:35 Temperature Source Temporal Artery Scan 10/24/24 11:35 Pulse 57 L 10/24/24 11:35 Pulse Rhythm Regular 10/18/24 04:53 Pulse 85 10/21/24 13:11 Respiratory Rate 20 10/24/24 11:35 Respiratory Effort Normal 10/18/24 04:53 Respiratory Depth Normal 10/18/24 04:53 Respiratory Pattern Normal 10/18/24 04:53 Blood Pressure 115/70 10/24/24 11:35 Blood Pressure Mean 85 10/24/24 11:35 Pulse Oximetry 96 10/24/24 11:35 Respiratory End-tidal CO2 27 10/18/24 13:40 Oxygen Delivery Method Room Air 10/24/24 11:35 Oxygen Flow Rate 0 10/24/24 11:35 Pain Level 0 10/24/24 11:35 Comment RN notified 10/21/24 11:06 Comment Pt arrived in pacu. 10/18/24 13:04 Intake & Output 10/23/24 10/24/24 10/24/24 23:59 11:59 23:59 Intake Total 452.083 / 3993.750 1262.500 / 1262.500 Balance 452.083 / 3993.750 1262.500 / 1262.500 Weight 56.3 kg Intake: IV 452.083 / 3993.750 1262.500 / 1262.500 Other: Urine Color Yellow Urine Appearance Clear Urine Odor Normal Comment immeasurable void into toilet PFSH All Active Problems (Updated 10/24/24 @ 15:10 by Jerry Bone MD) ACP (advance care planning) (Acute) Palliative care encounter (Acute) Liver masses (Acute) Hiatal hernia with GERD and esophagitis (Acute) Hypokalemia (Acute) Acute esophageal obstruction (Acute) Vision impairment (Chronic) Achilles tendon contracture, right (Acute) Capsulitis of right foot (Acute) Bursitis (Acute) Metatarsalgia, right foot (Acute) History of total right knee replacement (Acute 08/23/22) Intra-Op medial condylar fracture fixated with screws fixation. Anemia due to acute blood loss (Acute) Multiple gastric polyps (Chronic) Esophagitis (Acute) Hypomagnesemia (Acute) Multiple gastric polyps (Acute ~03/16/20) bleeding adn necrotic Discharge planning issues (Acute) DVT prophylaxis (Acute) H/O: CVA (cerebrovascular accident) (Chronic) Weight loss, non-intentional (Acute) Dysphagia (Chronic) Upper gastrointestinal bleeding (Acute) HTN (hypertension) (Chronic) GERD (gastroesophageal reflux disease) (Chronic) No history of formal endoscopic evaluation but empirically treated with AcipHex Medical History Dislocation of right shoulder joint >35 years ago Reduced in ER History of stroke >30 years ago; denies residual issues History of breast cancer (~2011) Treated with left breast lumpectomy and sentinel lymph node biopsies and subsequent radiation and chemotherapy; follow-up through [facility] Surgical History Status post laparotomy Performed for evaluation of possible ectopic but none found S/P breast lumpectomy (~2011) Family History Father No problems noted. Other Colon cancer Social History Smoking/Tobacco Use Status: Never Smoking risk assessment performed?: Yes Alcohol Intake: current Alcohol Intake frequency: 0-2 drinks per day Alcohol type: beer and wine Substance use type: does not use Housing: house What type of physical activity do you participate in: none Additional Social history: Unable to assess [facility] History History 0 Para Hx # Term Pregnancies Multiple births Hx # Pregnancies Ectopic pregnancies AB induced Hx Number of Living Children AB spontaneous Time Spent with Patient Time Spent with Patient: 45-69 minutes Time was spent: preparing to see the patient(eg.review tests), obtaining and/or reviewing separately otained hiistory, ordering medications,tests, procedures, referring, communicating with other health rn care transition, indepentently interpreting results, counseling the patient and care coordination
[2024-10-24 16:02] VITALS: BP 143/87; PULSE 70; RESP 20; TEMP 36.6; O2SAT 97
[2024-10-24 19:37] VITALS: BP 134/84; PULSE 75; RESP 18; TEMP 36.4; O2SAT 97
[2024-10-24] MEDS: Enoxaparin 40 MG/0.4 ML SYR SC (21:54)
[2024-10-25] MEDS: MORPHine 2 MG/ML SYR IVP ×4 (01:08→16:32)
[2024-10-25 04:49] VITALS: BP 110/55; PULSE 60; RESP 18; TEMP 36; O2SAT 97
[2024-10-25 07:22] VITALS: BP 132/69; PULSE 67; RESP 17; TEMP 36.8; O2SAT 94
[2024-10-25] MEDS: Pantoprazole 40 MG VIAL IVP (08:36)
[2024-10-25] MEDS: Normal Saline Flush 10 ML SYR IVP ×3 (08:37→16:33)
[2024-10-25 11:33] VITALS: BP 134/60; PULSE 63; RESP 18; TEMP 36.6; O2SAT 96
--- NOTE | 2024-10-25 15:06 | PDOC.CMDIS ---
Date of service: 10/25/24 Time of Service: 15:29 LACE Index Scoring Tool Questions: Length of Stay (in days): 7 - 13 Was the patient admitted via the E.D.?: Yes Comorbidities: Any Tumor E.D. Visits: 1 Answers: Total Score: 11 Risk of Readmission: High Risk Care Management Discharge Plan Reason for Hospitalization: Acute esophageal obstruction with dysphagia Discharge Plan: Desirae is being discharged today, as requested by patient. Desirae was receiving enteral nutrition via continuous pump; Supplies companies cannot provide an enteral feed pump until early next week. Desirae is requesting to be discharged home today and is resistant to staying until a pump can be coordinated. Per provider, she will need to continue to partake in gravity enteral feedings. Per nutrition, we will send Desirae home 1 case of Jevity 1.2, CM contacted Desirae's pharmacy to create awareness of the anticipate order. Per Pharmacy, [facility] supplies are anticipated to arrived 10/28/24 around 11:00 a.m. Desirae should continue to refill this supply with her pharmacy for the duration of her tube feeds. Desirae is agreeable to this plan and prefers this option. RN will provide education to Desirae and Ortega surrounding the feeding tubes. It is recommended Desirae will follow up with her PCP, surgical team, all of community partners, and plan of care. Recommendation is new HH RN/MEDICAL STAFF ASSISTANT which will be order; There is no known VNA that covers [place] Tavera contacted [facility] who states service have to wait until Monday to confirm if they have RN coverage in that area. Per RN, patient and educated and expressed understanding, also provided written instructions prior to leaving. CM notified PCP office. Patient/Family Education Needs: Review of discharge instructions, activity, tube feeds and limitations. Discuss ask me three. Services Needed at Discharge: Home Health Care Services
[2024-10-25 15:09] VITALS: BP 126/74; PULSE 63; RESP 18; TEMP 36.6; O2SAT 97
--- NOTE | 2024-10-25 15:30 | PDOC.HHF2F_ITS ---
Home Health Referral Home Health Orders Clinical synopsis of why skilled professionals are needed: esophageal stenosis with new PEG Medical diagnosis necessitation home health referral: as above Registered Nurse: Check all that apply Instruct on new or changed medication(s)/assess compliance: Ordered Assess for exacerbation of medical condition, instruct patient/caregivers on signs and symptoms to report for early detection: Ordered Other: PEG tube Image Consultant: Assist with community resources: Ordered Assist with machine operator hop picker care planning: Ordered Encounter Date and Reason: I certify that a FTF encounter for this patient was performed on October 25, 2024 and that such encounter was related to the primary reason the patient requires home health services. The encounter was conducted in the following manner: * By me as the certifying physician, SR. DIRECTOR, PA or * By an inpatient physician, SR. DIRECTOR or PA during an inpatient stay who communicated findings to me, Certification And Authentication I certify that I composed the above information based on my clinical judgment relating to this patient's medical condition and, if applicable, clinical findings communicated to me by the NPP or inpatient physician who performed the FTF encounter. Name of Provider that will be monitoring home health services: Kleber Rico
--- NOTE | 2024-10-25 15:53 | W.EVENT ---
Date of service: 10/25/24 Time of Service: 15:54 Event Note: Ortega Galindo who is the of Desirae Galindo was scheduled to go to a conference between 11/10/24-11/15/2024. Due to new medical needs for his , Mr Galindo will not be able to attend this conference. It is a medical necessity that Mr. Galindo stays with his . I recommend complete refunds for travel/lodging/conference fees. Please call [phone] Dr. Jerry Bone Time Spent with Patient Time spent in critical care(minutes): none Time Spent Included: Coordination of care
--- NOTE | 2024-10-25 16:53 | DSE_ITS ---
Date of service: 10/25/24 Time of Service: 16:53 DS: Diagnosis Discharge Diagnosis (1) Acute esophageal obstruction: Status: Acute (2) Multiple gastric polyps: Status: Chronic (3) Liver masses: Status: Acute (4) Hypokalemia: Status: Acute (5) DVT prophylaxis: Status: Acute Discharge Plan Disposition Patient Disposition: Home W/Home Health Services Condition: Stable Discharge Details Reason For Visit: Acute esophageal obstruction with dysphagia Admit Date/Time: 10/18/24 03:00 Admit Provider: Ramon Fuentes Attending Provider: Ramon Fuentes Primary Care Provider: Kleber Rico Hospital Course Hospital Course: It is imperative that Mrs. Galindo follow up with GI and PCP as soon as possible to evaluate a mass in her liver found on CT scan This is a 79-year-old female who was admitted to the hospital on 10/18/2024 for an acute esophageal obstruction. The plan on admission was to get a consult from general surgery for endoscopy. 2 attempts were made for surgical removal without success ultimately the patient was sent down to [facility] for interventional radiology and a stent was placed. Unfortunately, we do not have any details on the procedure. While she was in the ED originally, CT scan was indicative of a possible liver metastasis. The patient will need close monitoring and a biopsy as soon as possible. The original plan was to get this biopsy done at [facility] but due to time constraints this was not done. While she was in [facility], a PEG tube was also placed. Pt will need to follow up with GI [facility] to ensure proper functionality of her device. Pt was very anxious to dc and was dc to home on 10/24/24. Pt is in fair condition. Per PT notes, pt does not need continued PT CT chest/abd/pelvis 10/17/24 IMPRESSION: Dilated fluid-filled esophagus. Consider mass versus stricture at the GE junction. Endoscopy recommended. Suspicious appearing liver lesions which may represent metastatic disease versus primary malignancy. Home Meds and New Rx's Prescriptions: New morphine 10 mg capsule,extend.release pellets 10 mg PO Q12H Qty: 10 0RF Jevity 1.2 Thom 0.06 gram-1.2 kcal/mL liquid 271 ml feeding tube QID 20 Days Qty: 65034 0RF Rx Instructions: administer 4 times a day with 30-60ml flushes before and after each feeding. Also, add between 185-305ml of water throughout the day morphine 10 mg/5 mL solution 10 mg PO Q6H PRNQty: 100 0RF (DME) syringe (disposable) 60 mL syringe See Rx Instructions .Route Qty: 100 0RF Rx Instructions: As directed Continued aspirin 81 mg tablet,delayed release (DR/EC) 81 mg PO DAILY atorvastatin 40 mg tablet 40 mg PO DAILY mycophenolate mofetil 500 mg tablet 1,500 mg PO BID colchicine 0.6 mg tablet 0.6 mg PO DAILY cyanocobalamin (vitamin B-12) 1,000 mcg tablet, sublingual 1,000 mcg sublingual DAILY folic acid 1 mg tablet 1 mg PO DAILY potassium chloride 20 mEq tablet extended release 20 meq PO DAILY vitamin A 2,400 mcg capsule 2,400 mcg PO DAILY pyridoxine (vitamin B6) [Vitamin B-6] 25 mg tablet 25 mg PO DAILY cholecalciferol (vitamin D3) 50 mcg (2,000 unit) capsule 50 mcg PO DAILY epinephrine 0.3 mg/0.3 mL auto-injector 0.3 mg IM ONCE PRN Rx Instructions: as a single dose omeprazole 40 mg capsule,delayed release(DR/EC) 40 mg PO DAILY famotidine 20 mg tablet 20 mg PO DAILY Patient Comments: TAKE ONE TABLET BY MOUTH TWICE A DAY FOR HEARTBURN Discontinued pantoprazole 40 mg tablet,delayed release (DR/EC) 40 mg PO DAILY acetaminophen 500 mg tablet 1,000 mg PO Q8H PRN (Reason: pain) Qty: 90 3RF Discharge Instructions Stand Alone Forms: Nursing Discharge Form [place] [place], [place] Referral Note: The office should be giving you a call to set up a follow up appointment. Appointment needs be as soon as possible. Kleber Rico [Primary Care Provider, Medicine] Referral Note: follow up in 3-5 days. PCP office will give you a call to set up a follow up appointment. follow up with [facility] GI EL[facility] Activity:: Activity as Tolerated Equipment/Supplies:: No Equipment Needed Diet:: per PEG only for now Discharge Orders Discharge Orders: Discharge Order (Routine); Ordered 10/24/24 Ordered By: Jerry Bone DS: Summary Time Spent with Patient providing and/or coordinating discharge services: Greater than 30 minutes Status at Discharge Functional status at discharge: independent ambulation Overall status at discharge: patient is back to baseline Mental Status: mental status grossly normal Speech and Movement: speech and movement normal Mood: congruent mood Affect: normal affect Exam Psych Mental Status: mental status grossly normal Speech and Movement: speech and movement normal Mood: congruent mood Affect: normal affect DS: Data Vitals/I&O Vitals and I&O: Vital Signs Temperature 36.6 C 10/25/24 15:09 Temperature Source Temporal Artery Scan 10/25/24 15:09 Pulse 63 10/25/24 15:09 Pulse Rhythm Regular 10/18/24 04:53 Pulse 85 10/21/24 13:11 Respiratory Rate 18 10/25/24 15:09 Respiratory Effort Normal 10/18/24 04:53 Respiratory Depth Normal 10/18/24 04:53 Respiratory Pattern Normal 10/18/24 04:53 Blood Pressure 126/74 10/25/24 15:09 Blood Pressure Mean 91 10/25/24 15:09 Pulse Oximetry 97 10/25/24 15:09 Respiratory End-tidal CO2 27 10/18/24 13:40 Oxygen Delivery Method Room Air 10/25/24 15:09 Oxygen Flow Rate 0 10/25/24 15:09 Pain Level 0 10/24/24 11:35 Comment Notifying RN 10/24/24 16:02 Comment Pt arrived in pacu. 10/18/24 13:04 Intake & Output 10/24/24 10/25/24 10/25/24 23:59 11:59 23:59 Intake Total 1620.834 / 1620.834 Balance 1620.834 / 1620.834 Weight 56 kg Intake: IV 1620.834 / 1620.834 Other: Urine Color Yellow Urine Appearance Clear PFSH All Active Problems (Updated 10/24/24 @ 15:10 by Jerry Bone MD) ACP (advance care planning) (Acute) Palliative care encounter (Acute) Liver masses (Acute) Hiatal hernia with GERD and esophagitis (Acute) Hypokalemia (Acute) Acute esophageal obstruction (Acute) Vision impairment (Chronic) Achilles tendon contracture, right (Acute) Capsulitis of right foot (Acute) Bursitis (Acute) Metatarsalgia, right foot (Acute) History of total right knee replacement (Acute 08/23/22) Intra-Op medial condylar fracture fixated with screws fixation. Anemia due to acute blood loss (Acute) Multiple gastric polyps (Chronic) Esophagitis (Acute) Hypomagnesemia (Acute) Multiple gastric polyps (Acute ~03/16/20) bleeding adn necrotic Discharge planning issues (Acute) DVT prophylaxis (Acute) H/O: CVA (cerebrovascular accident) (Chronic) Weight loss, non-intentional (Acute) Dysphagia (Chronic) Upper gastrointestinal bleeding (Acute) HTN (hypertension) (Chronic) GERD (gastroesophageal reflux disease) (Chronic) No history of formal endoscopic evaluation but empirically treated with AcipHex Medical History (Updated 10/24/24 @ 15:10 by Jerry Bone MD) Dislocation of right shoulder joint >35 years ago Reduced in ER History of stroke >30 years ago; denies residual issues History of breast cancer (~2011) Treated with left breast lumpectomy and sentinel lymph node biopsies and subsequent radiation and chemotherapy; follow-up through [facility] Surgical History (Updated 10/25/24 @ 14:49 by Mila Porter) History of esophagogastroduodenoscopy (~09/2024) Status post laparotomy Performed for evaluation of possible ectopic but none found S/P breast lumpectomy (~2011) Family History Father No problems noted. Other Colon cancer Social History Smoking/Tobacco Use Status: Never Smoking risk assessment performed?: Yes Alcohol Intake: current Alcohol Intake frequency: 0-2 drinks per day Alcohol type: beer and wine Substance use type: does not use Housing: house What type of physical activity do you participate in: none Additional Social history: Unable to assess [facility] History History 0 Para Hx # Term Pregnancies Multiple births Hx # Pregnancies Ectopic pregnancies AB induced Hx Number of Living Children AB spontaneous Time Spent with Patient Time Spent with Patient: <45 minutes Time was spent: preparing to see the patient(eg.review tests), obtaining and/or reviewing separately otained hiistory, ordering medications,tests, procedures, referring, communicating with other health physician assistant primary care, indepentently interpreting results, counseling the patient and care coordination
== END 2024-10-25 18:27 | disposition home health service (06) | DRG 392 ==
LOC: ER 10-18 03:03 → MS 10-18 04:21
PROVIDERS: Family Medicine; Surgery; Admitting Provider Family Medicine; Emergency Provider Student in an Organized Health Care Education/Training Program; PCP Student in an Organized Health Care Education/Training Program; Responsible Provider Hospitalist; Visit Provider Family Medicine
PROC: 0DJ68ZZ Inspection of Stomach, Via Natural or Artificial Opening Endoscopic (ICD-10-PCS; CPT 43235; principal; 2024-10-18 12:00)
PROC: 0D758ZZ Dilation of Esophagus, Via Natural or Artificial Opening Endoscopic (ICD-10-PCS; CPT 43200; principal; 2024-10-21 10:30)
DX: K22.2 Esophageal obstruction (principal); I47.10 Supraventricular tachycardia, unspecified; K31.7 Polyp of stomach and duodenum; E87.6 Hypokalemia; K21.00 Gastro-esophageal reflux disease with esophagitis, without bleeding; I10 Essential (primary) hypertension; Z85.3 Personal history of malignant neoplasm of breast; R63.4 Abnormal weight loss; K44.9 Diaphragmatic hernia without obstruction or gangrene; R16.0 Hepatomegaly, not elsewhere classified; R13.10 Dysphagia, unspecified; Z68.24 Body mass index [BMI] 24.0-24.9, adult; Z79.899 Other long term (current) drug therapy; F10.90 Alcohol use, unspecified, uncomplicated; E78.00 Pure hypercholesterolemia, unspecified; R07.89 Other chest pain; Z96.651 Presence of right artificial knee joint; M67.01 Short Achilles tendon (acquired), right ankle; M77.41 Metatarsalgia, right foot; E83.42 Hypomagnesemia; Z86.73 Personal history of transient ischemic attack (TIA), and cerebral infarction without residual deficits; H54.3 Unqualified visual loss, both eyes; T45.1X5A Adverse effect of antineoplastic and immunosuppressive drugs, initial encounter; K76.89 Other specified diseases of liver
CPT/HCPCS: 43215; 43200; 36410; 00123; 36415; 74177; 80048; 80053; 83690; 85027; 87637; 93005; 96374; 96375; 97161; 97530; 99222; 99231; 99291; J1650; 71260; 81003; 83735; 84484; 85025; 85610; 85730; 93010; 99223; 99232; 99239; J0131; J0330; J1610; J1644; J2270; J2371; J2470; J2704; J3411; J3475; J3480; J3490

== ENCOUNTER 2024-10-29 16:24 | Outpatient (REF) | payer MEDICARE, SELFPAY ==
[2024-10-29 20:50] LABS: Abs Immature Grans 0.08 10^3/uL (0.0-0.06); HCT 41.3 % (36.0-46.0); HGB 13.4 g/dL (11.2-15.7); Immature Grans % 0.5 %; MCH 30.8 pg (27.0-33.0); MCHC 32.4 % (32.0-36.0); MCV 95 fL (80-95); MPV 10.7 fL (8.0-11.0); Platelet Count 339 10^3/uL (130-400); RBC 4.35 10^6/uL (3.93-5.22); RDW 12.8 % (11.7-14.6); RDW-SD 44.4 fL; WBC 15.89 10^3/uL (4.4-10.8)
[2024-10-29 21:09] LABS: ALT 23 U/L (14-59); AST 24 U/L (15-37); Albumin 3.1 g/dL (3.4-5.0); Alkaline Phosphatase 133 U/L (46-116); Anion Gap 11.2 mmol/L (3-11); BUN 15 mg/dL (7-18); Bilirubin, Total 0.6 mg/dL (0.2-1.0); CO2 26.8 mmol/L (21.0-32.0); Calcium 9.6 mg/dL (8.5-10.1); Chloride 100 mmol/L (98-107); Estimated GFR 101.87 (mL/min/1.73m2); Glucose 96 mg/dL (74-106); Magnesium 1.8 mg/dL (1.8-2.4); Potassium 3.8 mmol/L (3.5-5.1); Sodium 138 mmol/L (136-145); Total Protein 6.8 g/dL (6.4-8.2)
== END 2024-10-29 16:25 | disposition home or self-care (01) ==
LOC: NCHCN 16:24
PROVIDERS: PCP Student in an Organized Health Care Education/Training Program; Visit Provider Student in an Organized Health Care Education/Training Program
DX: K31.89 Other diseases of stomach and duodenum (principal)
CPT/HCPCS: 80053; 83735; 85025

== ENCOUNTER 2024-11-23 00:31 | Outpatient (RCR) | payer MEDICARE, SELFPAY ==
[2024-11-21 08:39] LABS: Abs Immature Grans 0.06 10^3/uL (0.0-0.06); HCT 36.0 % (36.0-46.0); HGB 11.6 g/dL (11.2-15.7); Immature Grans % 0.4 %; MCH 29.7 pg (27.0-33.0); MCHC 32.2 % (32.0-36.0); MCV 92 fL (80-95); MPV 10.1 fL (8.0-11.0); Platelet Count 274 10^3/uL (130-400); RBC 3.90 10^6/uL (3.93-5.22); RDW 12.8 % (11.7-14.6); RDW-SD 43.0 fL; WBC 13.36 10^3/uL (4.4-10.8)
[2024-11-21] MEDS: Normal Saline Flush 10 ML SYR IVP (08:42)
[2024-11-21 09:10] LABS: ALT 26 U/L (14-59); AST 18 U/L (15-37); Albumin 2.8 g/dL (3.4-5.0); Alkaline Phosphatase 155 U/L (46-116); Anion Gap 5.0 mmol/L (3-11); BUN 15 mg/dL (7-18); Bilirubin, Total 0.4 mg/dL (0.2-1.0); CO2 29.0 mmol/L (21.0-32.0); Calcium 9.1 mg/dL (8.5-10.1); Chloride 103 mmol/L (98-107); Estimated GFR 96.54 (mL/min/1.73m2); Glucose 111 mg/dL (74-106); Potassium 3.7 mmol/L (3.5-5.1); Sodium 137 mmol/L (136-145); TSH 4.35 uIU/mL (0.36-3.74); Total Protein 7.0 g/dL (6.4-8.2)
[2024-11-22 09:17] LABS: CEA 19.8 ng/mL (See Note)
[2024-11-23 11:06] VITALS: BP 116/74; PULSE 68; RESP 16; TEMP 36.9; O2SAT 99
[2024-11-26] MEDS: Normal Saline Flush 10 ML SYR IVP (12:33)
== END 2024-11-24 23:59 | disposition home or self-care (01) ==
LOC: INF 00:31
PROVIDERS: PCP Student in an Organized Health Care Education/Training Program; Visit Provider Internal Medicine Hematology & Oncology
DX: C15.9 Malignant neoplasm of esophagus, unspecified (principal); Z79.899 Other long term (current) drug therapy; Z45.2 Encounter for adjustment and management of vascular access device
CPT/HCPCS: 36591; 80053; 82378; 84439; 84443; 85025

== ENCOUNTER 2024-12-19 00:40 | Outpatient (RCR) | payer MEDICARE, SELFPAY ==
[2024-11-26] MEDS: Normal Saline Flush 10 ML SYR IVP (11:30)
[2024-11-26] MEDS: Prochlorperazine 10 MG/2 ML VIAL (12:03)
[2024-11-26] MEDS: Normal Saline 1,000 ML 500 ML IV (12:11)
[2024-12-05] MEDS: Normal Saline Flush 10 ML SYR IVP (08:09)
[2024-12-05 08:26] LABS: Abs Immature Grans 0.04 10^3/uL (0.0-0.06); HCT 34.9 % (36.0-46.0); HGB 11.4 g/dL (11.2-15.7); Immature Grans % 0.4 %; MCH 29.5 pg (27.0-33.0); MCHC 32.7 % (32.0-36.0); MCV 90 fL (80-95); MPV 10.8 fL (8.0-11.0); Platelet Count 230 10^3/uL (130-400); RBC 3.86 10^6/uL (3.93-5.22); RDW 13.3 % (11.7-14.6); RDW-SD 44.2 fL; WBC 9.61 10^3/uL (4.4-10.8)
[2024-12-05 08:50] LABS: ALT 30 U/L (14-59); AST 21 U/L (15-37); Albumin 2.4 g/dL (3.4-5.0); Alkaline Phosphatase 134 U/L (46-116); Anion Gap 7.5 mmol/L (3-11); BUN 10 mg/dL (7-18); Bilirubin, Total 0.6 mg/dL (0.2-1.0); CO2 27.5 mmol/L (21.0-32.0); Calcium 9.0 mg/dL (8.5-10.1); Chloride 105 mmol/L (98-107); Estimated GFR 96.54 (mL/min/1.73m2); Glucose 110 mg/dL (74-106); Potassium 3.5 mmol/L (3.5-5.1); Sodium 140 mmol/L (136-145); TSH 3.09 uIU/mL (0.36-3.74); Total Protein 6.7 g/dL (6.4-8.2)
[2024-12-05 23:23] LABS: CEA 15.2 ng/mL (See Note)
[2024-12-07 11:00] VITALS: BP 113/67; PULSE 80
[2024-12-07] MEDS: Normal Saline Flush 10 ML SYR IVP (11:16)
[2024-12-19] MEDS: Normal Saline Flush 10 ML SYR IVP (08:06)
[2024-12-19 08:23] LABS: Abs Immature Grans 0.03 10^3/uL (0.0-0.06); HCT 35.6 % (36.0-46.0); HGB 11.2 g/dL (11.2-15.7); Immature Grans % 0.4 %; MCH 27.5 pg (27.0-33.0); MCHC 31.5 % (32.0-36.0); MCV 88 fL (80-95); MPV 10.2 fL (8.0-11.0); Platelet Count 225 10^3/uL (130-400); RBC 4.07 10^6/uL (3.93-5.22); RDW 14.3 % (11.7-14.6); RDW-SD 45.7 fL; WBC 7.97 10^3/uL (4.4-10.8)
[2024-12-19 08:57] LABS: ALT 27 U/L (14-59); AST 27 U/L (15-37); Albumin 2.5 g/dL (3.4-5.0); Alkaline Phosphatase 130 U/L (46-116); Anion Gap 5.8 mmol/L (3-11); BUN 9 mg/dL (7-18); Bilirubin, Total 0.4 mg/dL (0.2-1.0); CO2 30.2 mmol/L (21.0-32.0); Calcium 8.8 mg/dL (8.5-10.1); Chloride 103 mmol/L (98-107); Estimated GFR 96.54 (mL/min/1.73m2); Glucose 100 mg/dL (74-106); Potassium 3.5 mmol/L (3.5-5.1); Sodium 139 mmol/L (136-145); TSH 3.62 uIU/mL (0.36-3.74); Total Protein 6.8 g/dL (6.4-8.2)
[2024-12-19 11:39] LABS: Folate > 20.0 ng/mL (8.6-20.0); Vitamin B12 1242 pg/mL (193-986)
[2024-12-19 18:49] LABS: CEA 15.8 ng/mL (See Note)
== END 2024-12-24 23:59 | disposition home or self-care (01) ==
LOC: INF 00:40
PROVIDERS: Internal Medicine Hematology & Oncology; Nurse Practitioner Family; PCP Student in an Organized Health Care Education/Training Program; Visit Provider Hospitalist
DX: C15.9 Malignant neoplasm of esophagus, unspecified (principal); C16.0 Malignant neoplasm of cardia; Z79.899 Other long term (current) drug therapy
CPT/HCPCS: 36591; 80053; 96523; 82378; 82607; 82746; 84439; 84443; 85025; J0780

== ENCOUNTER 2025-01-04 00:17 | Outpatient (RCR) | payer MEDICARE, SELFPAY ==
[2025-01-04 08:26] VITALS: BP 104/67; PULSE 61; RESP 14; TEMP 37; O2SAT 99
[2025-01-04] MEDS: Normal Saline Flush 10 ML SYR IVP (08:41)
== END 2025-01-24 23:59 | disposition home or self-care (01) ==
LOC: INF 00:17
PROVIDERS: PCP Student in an Organized Health Care Education/Training Program; Visit Provider Internal Medicine Hematology & Oncology
DX: C15.9 Malignant neoplasm of esophagus, unspecified (principal); Z79.899 Other long term (current) drug therapy; Z45.2 Encounter for adjustment and management of vascular access device
CPT/HCPCS: 96523

== ENCOUNTER 2025-01-24 07:45 | Outpatient (RCR) | payer MEDICARE, SELFPAY ==
[2025-01-02] MEDS: Normal Saline Flush 10 ML SYR IVP (07:42)
[2025-01-02 07:49] LABS: Abs Immature Grans 0.04 10^3/uL (0.0-0.06); HCT 37.5 % (36.0-46.0); HGB 12.0 g/dL (11.2-15.7); Immature Grans % 0.4 %; MCH 27.5 pg (27.0-33.0); MCHC 32.0 % (32.0-36.0); MCV 86 fL (80-95); MPV 10.0 fL (8.0-11.0); Platelet Count 199 10^3/uL (130-400); RBC 4.37 10^6/uL (3.93-5.22); RDW 15.8 % (11.7-14.6); RDW-SD 47.9 fL; WBC 9.79 10^3/uL (4.4-10.8)
[2025-01-02 08:13] LABS: ALT 21 U/L (14-59); AST 28 U/L (15-37); Albumin 2.6 g/dL (3.4-5.0); Alkaline Phosphatase 141 U/L (46-116); Anion Gap 9.9 mmol/L (3-11); BUN 10 mg/dL (7-18); Bilirubin, Total 0.6 mg/dL (0.2-1.0); CO2 27.1 mmol/L (21.0-32.0); Calcium 8.9 mg/dL (8.5-10.1); Chloride 104 mmol/L (98-107); Glucose 99 mg/dL (74-106); Potassium 3.7 mmol/L (3.5-5.1); Sodium 141 mmol/L (136-145); TSH 8.17 uIU/mL (0.36-3.74); Total Protein 6.8 g/dL (6.4-8.2)
[2025-01-02 19:35] LABS: CEA 16.8 ng/mL (See Note)
[2025-01-16 08:31] LABS: Abs Immature Grans 0.05 10^3/uL (0.0-0.06); HCT 35.1 % (36.0-46.0); HGB 11.0 g/dL (11.2-15.7); Immature Grans % 0.5 %; MCH 27.0 pg (27.0-33.0); MCHC 31.3 % (32.0-36.0); MCV 86 fL (80-95); MPV 10.1 fL (8.0-11.0); Platelet Count 203 10^3/uL (130-400); RBC 4.08 10^6/uL (3.93-5.22); RDW 17.9 % (11.7-14.6); RDW-SD 53.2 fL; WBC 10.94 10^3/uL (4.4-10.8)
[2025-01-16] MEDS: Normal Saline Flush 10 ML SYR IVP (08:37)
[2025-01-16 08:56] LABS: ALT 19 U/L (14-59); AST 22 U/L (15-37); Albumin 2.5 g/dL (3.4-5.0); Alkaline Phosphatase 142 U/L (46-116); Anion Gap 9.2 mmol/L (3-11); BUN 13 mg/dL (7-18); Bilirubin, Total 0.6 mg/dL (0.2-1.0); CO2 27.8 mmol/L (21.0-32.0); Calcium 8.7 mg/dL (8.5-10.1); Chloride 103 mmol/L (98-107); Glucose 93 mg/dL (74-106); Potassium 3.4 mmol/L (3.5-5.1); Sodium 140 mmol/L (136-145); TSH 5.44 uIU/mL (0.36-3.74); Total Protein 6.7 g/dL (6.4-8.2)
[2025-01-16 17:59] LABS: CEA 12.1 ng/mL (See Note)
[2025-01-24] MEDS: Normal Saline Flush 10 ML SYR IVP (07:50)
[2025-01-24 07:57] LABS: Abs Immature Grans 0.04 10^3/uL (0.0-0.06); HCT 38.6 % (36.0-46.0); HGB 12.0 g/dL (11.2-15.7); Immature Grans % 0.4 %; MCH 26.8 pg (27.0-33.0); MCHC 31.1 % (32.0-36.0); MCV 86 fL (80-95); MPV 9.8 fL (8.0-11.0); Platelet Count 299 10^3/uL (130-400); RBC 4.48 10^6/uL (3.93-5.22); RDW 19.0 % (11.7-14.6); RDW-SD 58.5 fL; WBC 10.65 10^3/uL (4.4-10.8)
[2025-01-24 08:30] LABS: ALT 18 U/L (14-59); AST 17 U/L (15-37); Albumin 2.4 g/dL (3.4-5.0); Alkaline Phosphatase 122 U/L (46-116); Anion Gap 9.8 mmol/L (3-11); BUN 12 mg/dL (7-18); Bilirubin, Total 0.4 mg/dL (0.2-1.0); CO2 27.2 mmol/L (21.0-32.0); Calcium 9.0 mg/dL (8.5-10.1); Chloride 103 mmol/L (98-107); Glucose 97 mg/dL (74-106); Potassium 3.5 mmol/L (3.5-5.1); Sodium 140 mmol/L (136-145); TSH 4.03 uIU/mL (0.36-3.74); Total Protein 7.0 g/dL (6.4-8.2)
[2025-01-24 21:15] LABS: CEA 13.7 ng/mL (See Note)
== END 2025-01-24 23:59 | disposition home or self-care (01) ==
LOC: INF 07:45
PROVIDERS: PCP Student in an Organized Health Care Education/Training Program; Visit Provider Internal Medicine Hematology & Oncology
DX: C15.9 Malignant neoplasm of esophagus, unspecified (principal); Z79.899 Other long term (current) drug therapy; Z45.2 Encounter for adjustment and management of vascular access device
CPT/HCPCS: 36591; 80053; 82378; 84439; 84443; 85025

== ENCOUNTER 2025-02-06 09:12 | Outpatient (REF) | payer MEDICARE, SELFPAY ==
[2025-02-06 09:42] LABS: Glucose Negative (Negative)
== END 2025-02-06 09:13 | disposition home or self-care (01) ==
LOC: LBN 09:12
PROVIDERS: PCP Student in an Organized Health Care Education/Training Program; Visit Provider Internal Medicine Hematology & Oncology
DX: R82.81 Pyuria (principal)
CPT/HCPCS: 81003; 81015

== ENCOUNTER 2025-02-08 00:56 | Outpatient (RCR) | payer MEDICARE, SELFPAY ==
[2025-01-26 10:16] VITALS: BP 130/75; PULSE 73; RESP 16; TEMP 36.2; O2SAT 96
[2025-01-26] MEDS: Normal Saline Flush 10 ML SYR IVP (10:18)
[2025-02-06 07:54] LABS: Abs Immature Grans 0.01 10^3/uL (0.0-0.06); HCT 36.8 % (36.0-46.0); HGB 11.4 g/dL (11.2-15.7); Immature Grans % 0.2 %; MCH 26.4 pg (27.0-33.0); MCHC 31.0 % (32.0-36.0); MCV 85 fL (80-95); MPV 9.4 fL (8.0-11.0); Platelet Count 212 10^3/uL (130-400); RBC 4.32 10^6/uL (3.93-5.22); RDW 19.5 % (11.7-14.6); RDW-SD 58.3 fL; WBC 6.51 10^3/uL (4.4-10.8)
[2025-02-06 08:20] LABS: ALT 20 U/L (10-49); AST 28 U/L (<34); Albumin 3.5 g/dL (3.4-5.0); Alkaline Phosphatase 121 U/L (46-116); Anion Gap 9.6 mmol/L (3-11); BUN 12 mg/dL (9-23); Bilirubin, Total 0.50 mg/dL (0.2-1.2); CO2 28.4 mmol/L (20.0-31.0); Calcium 8.6 mg/dL (8.3-10.6); Chloride 101 mmol/L (98-107); Glucose 90 mg/dL (74-106); Potassium 3.4 mmol/L (3.5-5.1); Sodium 139 mmol/L (136-145); Total Protein 6.4 g/dL (5.7-8.2)
[2025-02-06 08:22] LABS: TSH 11.80 uIU/mL (0.55-4.78)
[2025-02-06] MEDS: Normal Saline Flush 10 ML SYR IVP (11:30)
[2025-02-06 18:50] LABS: CEA 11.5 ng/mL (See Note)
[2025-02-08] MEDS: Normal Saline Flush 10 ML SYR IVP (11:20)
== END 2025-02-23 23:59 | disposition home or self-care (01) ==
LOC: INF 00:56
PROVIDERS: PCP Student in an Organized Health Care Education/Training Program; Visit Provider Internal Medicine Hematology & Oncology
DX: C15.9 Malignant neoplasm of esophagus, unspecified (principal); Z79.899 Other long term (current) drug therapy; Z45.2 Encounter for adjustment and management of vascular access device
CPT/HCPCS: 36591; 80053; 96523; 82378; 84439; 84443; 85025